=== PATIENT | male | born 1940 | race Caucasian/White ===

== ENCOUNTER 2020-07-30 17:49 | Observation (INO) | payer MEDICARE, OTHER, SELFPAY ==
[2020-07-30] VITALS (7 sets, daily range): BP systolic 98–140; BP diastolic 71–115; PULSE 70–71; RESP 13–20; TEMP 36–36.9; O2SAT 95–99; BMI 30.9
--- NOTE | ~2020-07-30 | XR_ITS ---
XR chest 1V portable 07/31/2020 05:36 Indication: Dyspnea. Procedure: AP portable chest Comparison: Comparison to multiple prior studies sequentially, with oldest reviewed study dated 09/14. Findings: Cardiomegaly. Shallow inspiration. No focal air space disease, pulmonary edema, pleural eff usion or suspected pneumothorax. There is atherosclerosis. Pacemaker leads are stable. No pneumothora x. No acute osseous abnormality. Impression: 1: No acute cardiopulmonary disease. Reviewed, dictated and finalized at location A. Impression: 1: No acute cardiopulmonary disease.
--- NOTE | ~2020-07-30 | CT_ITS ---
EXAMINATION: CT brain wo con DATE: 07/30/2020 17:55 INDICATION: Left facial droop. TECHNIQUE: Computed tomography (CT) of the head was performed without intravenous contrast. The mA wa s adjusted according to patient size. Iterative reconstruction technique was employed. Exam dose: 60 5.33 mGy-cm total exam DLP. COMPARISON: 09/2018 CT brain FINDINGS: Again noted is extensive encephalomalacia of the right cerebral hemisphere in the distribut ion of the middle cerebral artery consistent with old infarct. No intracranial mass lesion or hemorrhage or recent cerebrovascular accident is evident. Bilateral carotid siphon internal carotid artery and vertebral artery and basilar artery calcificatio ns are noted. No midline shift or mass effect. No subdural or epidural hematoma. No skull fracture or bone destruction is detected. Included paranasal sinuses and mastoid air cells a re unremarkable. IMPRESSION: Large right middle cerebral artery distribution chronic infarct No recent cerebrovascular accident is evident No intracranial mass lesion or hemorrhage is detected. Dr. Cortez telephoned the report on 07/30/2020 1803 hours to emergency room physician Dr. Cabello Reviewed, dictated and finalized at [facility]. Reviewed, dictated and finalized at location A. IMPRESSION: Large right middle cerebral artery distribution chronic infarct No recent cerebrovascular accident is evident No intracranial mass lesion or hemorrhage is detected. Dr. Cortez telephoned the report on 07/30/2020 1803 hours to emergency room physic melba Cabello
--- NOTE | ~2020-07-30 | US_ITS ---
EXAMINATION: US carotid duplex BI DATE: 07/31/2020 13:22 INDICATION: Left facial droop TECHNIQUE: Grayscale, color Doppler, and pulsed Doppler images of the cervical carotid arteries were obtained. The degree of vessel stenosis is placed in one of the following categories: normal, <50%, 5 0-69%, >=70% but less than near-occlusion, near-occlusion, or total occlusion. Note that percent sten osis relative to normal distal artery lumen diameter is indirectly measured from velocity measurement s as described by Chuckie, et al. Radiology 2003; 229:340-346. Notes: Normal: Peak systolic velocity <125 centimeters/sec and no plaque <50%. Peak systolic velocity <125 ( EDV <40; ICA/CCA PSV ratio <2.0; used these factors only a tandem lesions or low cardiac output or co ntralateral disease) 50-69 %: PSV 125-230 (EDV 40-100; ratio 2-4) >= 70% but less than near occlusion: PSV greater than 230 (EDV > 100; ratio> 4.0) Near Occlusion: PSV that is variable; markedly narrowed lumen Occlusion: Absent flow on color/spectral Doppler and no lumen on shafer scale. COMPARISON: None. FINDINGS: RIGHT: The right common carotid artery (CCA) peak systolic velocity (PSV) is 63 cm/s. The right internal car otid artery (ICA) PSV is 75 cm/s. The right ICA end-diastolic velocity (EDV) is 21 cm/s. The right IC A/CCA PSV ratio is 1.2. The external carotid artery (ECA) PSV is 149 cm/s. There is antegrade flow in the right vertebral artery. LEFT: The left CCA PSV is 111 cm/s. The left ICA PSV is 93 cm/s. The left ICA EDV is 36 cm/s. The left ICA/ CCA PSV ratio is 0.83. The ECA PSV is 81 cm/s. There is antegrade flow in the left vertebral artery. IMPRESSION: 1. Less than 50% stenosis in the right internal carotid artery by sonographic criteria. 2. Less than 50% stenosis in the left internal carotid artery by sonographic criteria. Reviewed, dictated and finalized at location A. IMPRESSION: 1. Less than 50% stenosis in the right internal carotid artery by sonographic kirby kamara. 2. Less than 50% stenosis in the left internal carotid artery by sonographic melba ambrose.
--- NOTE | 2020-07-30 18:18 | ECG_ITS ---
Measurements Intervals [place] Rate: 70 P: 192 [place]: 162 QRS: -11 QRSD: 92 T: 20 QT: 407 QTc: 439 Interpretive Statements ELECTRONIC ATRIAL PACEMAKER EARLY PRECORDIAL R/S TRANSITION BASELINE WANDER- V6 ATYPICAL ECG Electronically Signed On 07-30-2020 21:49:05 CDT by Alok Mackey D.O.
--- NOTE | 2020-07-30 18:47 | ED.GENADULT ---
HPI - General Adult General Chief complaint: Suspected CVA Stated complaint: CODE CVA Time Seen by Provider: 07/30/20 18:06 Source: patient and family History of Present Illness HPI narrative: Patient is a 80 y/o male brought in by EMS for possible stroke. Daughter states that he was eating at restaurant and he suddenly had trouble keeping food in his mouth. He was drooling and food seems to be falling out on left side of his mouth. He also had more trouble with weight bearing. This started at about 4:30 PM. Daughter states that patient had previous stroke about 10 years ago and has residual left sided weakness. Of note, patient is on Eliquis for Atrial fibrillation. Related Data Home Medications Medication Instructions Recorded Confirmed apixaban [Eliquis] 5 mg PO BID 07/30/20 07/30/20 atorvastatin 40 mg tablet 40 mg PO DAILY 07/30/20 07/30/20 buspirone 10 mg tablet 10 mg PO BID 07/30/20 07/30/20 carvedilol 3.125 mg tablet 3.125 mg PO BID tablet 07/30/20 07/30/20 cyanocobalamin (vitamin B-12) 1,000 mcg PO DAILY 07/30/20 07/30/20 docusate sodium 100 mg capsule 100 mg PO DAILY PRN 07/30/20 07/30/20 donepezil 10 mg tablet 10 mg PO QHS 07/30/20 07/30/20 furosemide 20 mg tablet 20 mg PO Q8H tablet 07/30/20 07/30/20 furosemide 20 mg tablet 20 mg PO QAM 07/30/20 07/30/20 levetiracetam 500 mg tablet 500 mg PO Q12H 07/30/20 07/30/20 magnesium oxide 400 mg (241.3 mg 400 mg PO DAILY 07/30/20 07/30/20 magnesium) tablet pantoprazole 40 mg tablet,delayed 40 mg PO QAM 07/30/20 07/30/20 release quetiapine 25 mg tablet 25 mg PO QHS 07/30/20 07/30/20 sertraline 100 mg tablet 200 mg PO DAILY 07/30/20 07/30/20 sotalol 80 mg PO HS 07/30/20 07/30/20 tamsulosin 0.4 mg capsule 0.4 mg PO DAILY 07/30/20 07/30/20 Allergies Allergy/AdvReac Type Severity Reaction Status Date / Time No Known Allergies Allergy Verified 07/30/20 22:43 Review of Systems Constitutional: Constitutional: Denies chills, Denies fever(s), Denies headache(s) and Denies weakness Eyes: Eyes: Denies blurry vision ENT: Denies headache(s) and Denies neck pain Cardiovascular: Cardiovascular: Denies chest pain and Denies dyspnea Respiratory: Respiratory: Denies cough and Denies dyspnea Gastrointestinal: Gastrointestinal: Denies abdominal pain, Denies diarrhea, Denies nausea and Denies vomiting Genitourinary: Genitourinary: Denies hematuria and Denies dysuria Musculoskeletal: Musculoskeletal: Denies back pain and Denies neck pain Neurologic: Denies headache(s), Reports focal weakness (chronic left sided weakness due to previous stroke) and Reports weakness PMFSH Family History Family History Father Mother Other No significant family history Social History Social History Smoking status: Never smoker Alcohol intake: never Substance use: never Living arrangements: with family Gender identity (if verbalized by the patient): Male Spiritual care concerns: No Exam Const: General: no acute distress and well developed Orientation/consciousness: oriented to person, oriented to place, oriented to time and patient oriented x3 HENMT: Head: normocephalic Ears: external ears normal General nose exam: Normal external nose present Eyes: General: appearance normal, both eyes and all related structures Conjunctivae: conjunctivae normal Neck: Neck: normal visual inspection and full ROM Chest: Chest palpation & inspection: normal inspection of the chest and no tenderness Resp: Effort & Inspection: normal respiratory effort Auscultation: clear to auscultation bilaterally Cardio: Rate: regular rate Rhythm: regular rhythm GI: GI Palp: No abdominal tenderness and Yes Soft to palpation Skin: General skin exam: normal color and turgor normal Neuro: General: oriented to person, oriented to place, oriented to time and patient oriented x3
[2020-07-30 18:57] LABS: Basophils Percent Auto 0.7 % (0.2-1.2); Eosinophils Percent Auto 0.7 % (0-4.4); Hematocrit 38.1 % (42.0-52.0); Hemoglobin 12.4 g/dL (14.0-18.0); Immature Granulocyte Absolute 0.02 K/mm3 (0.00-0.031); Immature Granulocyte Percent A 0.4 % (0-0.5); Lymphocytes Percent Auto 24.2 % (18.3-44.2); Mean Corpuscular HGB Conc 32.5 g/dl (32-36); Mean Corpuscular Hemoglobin 32.3 pg (26-34); Mean Corpuscular Volume 99.2 fl (80-100); Mean Platelet Volume 10.1 fl (7.4-10.4); Monocytes Absolute Auto 0.5 K/mm3 (0.1-0.6); Monocytes Percent Auto 8.8 % (2.6-8.5); Neutrophils Absolute Auto 3.5 K/mm3 (1.3-6.7); Neutrophils Percent Auto 65.2 % (45.5-73.1); Platelet Count Result 150 k/mm3 (150-375); Red Blood Count 3.84 M/mm3 (4.6-6.20); Red Cell Distribution Width 12.5 % (11.5-14.5); White Blood Count 5.4 K/mm3 (4.5-10.0)
[2020-07-30 19:07] LABS: Alanine Aminotransferase 23 U/L (4-50); Albumin Level 4.1 g/dL (3.5-5.1); Alkaline Phosphatase 64 U/L (38-126); Anion Gap 9 mmol/L (8-16); Aspartate Amino Transferase 33 U/L (17-59); Bilirubin,Total 0.4 mg/dL (0.2-1.3); Blood Urea Nitrogen 26 mg/dL (9-20); Calcium 9.3 mg/dL (8.4-10.2); Carbon Dioxide 29 mmol/L (22-30); Chloride 106 mmol/L (98-107); Estimated CRCL calculation 42 ml/min; Estimated Glomerular Filt Rate 45; Glucose 97 mg/dL (75-110); Potassium 4.3 mmol/L (3.4-5.0); Sodium 144 mmol/L (137-145)
[2020-07-30 19:12] LABS: INR 1.1; Prothrombin Time 14.5 Seconds (11.1-14.7)
[2020-07-30 19:26] LABS: Add Urine Microscopic? YES; Appearance Urine Clear (Clear); Bilirubin Urine Negative (Negative); Blood Urine Negative (Negative); Color Urine Yellow (Yellow); Glucose Urine UA Negative (Negative); Ketones Urine Negative (Negative); Leukocyte Esterase Ur Negative LEU/UL (Negative); Mucus Urine Few /lpf; Nitrate Urine Negative (Negative); Protein Urine 1+ mg/dL (Negative); RBC Urine 0-2 /hpf (0-2); Specific Grav Ur 1.027 (1.001-1.035); Squamous Epithelial Cell Urine Rare /hpf (Few); Urobilinogen Urine Negative mg/dL (<2.0); WBC Urine 0-3 /hpf
--- NOTE | 2020-07-30 19:27 | PC.NURSE ---
Pt resting on stretcher c at bedside. per family, pt had cva 10 years ago. PMH updated with info provided. from family. pt able to answer simple yes/no questions. pt denies pain. all needs addressed. call light in reach. will continue to monitor.
--- NOTE | 2020-07-30 20:58 | PM.IMHP ---
H&P: HPI History of Present Illness Date/Time: 07/30/20 20:58 Chief Complaint: Drooling Narrative: This is an 80-year-old male with past medical history significant for stroke a few years ago patient with resultant left-sided hemiparesis, dementia, seizure disorder, atrial fibrillation, anticoagulated and rate controlled, depression. Patient has been in his usual state of health he uses a cane to aid with his ambulation he was at a restaurant eating lunch with his daughter when daughter noticed that he had a blank stare foot was coming out of his mouth and he was not able to get up from the chair on his when she prompted him to do so. Patient was brought to the emergency room preliminary workup was essentially nonrevealing a CT of the head showed large chronic infarct in the right MCA territory. BMP was significant for only slight elevation of creatinine compared to patient's usual. A UA showed no wbc's in the urine. Daughter who in the states that he has been in his usual state of he lives in his own home and has a caregiver and his children take turns in visiting him. Patient states that he had had some broken thoughts. Patient denies any pain at at the time of my visit he denies any visual field deficit, no new weakness or sensory motor deficit denies any shortness of breath chills fever nausea or vomiting patient states that he takes his tablets with applesauce but has no difficulty swallowing. Review of Systems Review of Systems: Narrative: Drooling altered mental status gait disturbance Constitutional: Constitutional: Denies chills, Denies fatigue, Denies fever(s), Denies frequent falls, Denies headache(s) and Denies lethargy Eyes: Eyes: Denies other visual disturbances ENT: Denies dysphagia, Denies nasal congestion, Denies nasal discharge and Denies nasal obstruction Cardiovascular: Cardiovascular: Denies chest pain at rest, Denies pedal edema, Denies irregular heart rhythm, Denies radiating jaw, neck or arm pain, Denies palpitations, Denies dyspnea and Denies dyspnea on exertion Respiratory: Respiratory: Denies cough, Denies dyspnea and Denies wheezing Gastrointestinal: Gastrointestinal: Denies nausea and Denies vomiting Genitourinary: Genitourinary: Denies dysuria Musculoskeletal: Musculoskeletal: Denies arthralgias and Denies muscle weakness Integumentary/Breasts: Skin/Breast: Denies rash Neurologic: Denies syncope, Denies headache(s), Denies focal weakness, Denies loss of vision and Denies Sensory deficit (Neuro) Comments: Left-sided chronic hemiparesis Psychiatric: Psychiatric: Reports no additional psychiatric complaints Endocrine: Endocrine: Reports no additional endocrine complaints Hematologic/Lymphatic: Hematologic/Lymphatic: Reports no additional hematologic/lymphatic complaints Allergic/Immunologic: Allergic/Immunologic: Reports no additional allergic/immunologic complaints PMFSH Social History Social History Smoking status: Never smoker Alcohol intake: never Substance use: never Gender identity (if verbalized by the patient): Male Spiritual care concerns: No Meds Home Medications and Allergies Home Medications Medication Instructions Recorded Confirmed Type apixaban [Eliquis] 5 mg PO BID 07/30/20 07/30/20 History atorvastatin 40 mg tablet 40 mg PO DAILY 07/30/20 07/30/20 History buspirone 10 mg tablet 10 mg PO BID 07/30/20 07/30/20 History carvedilol 3.125 mg tablet 3.125 mg PO BID tablet 07/30/20 07/30/20 History cyanocobalamin (vitamin B-12) 1,000 mcg PO DAILY 07/30/20 07/30/20 History docusate sodium 100 mg capsule 100 mg PO DAILY PRN 07/30/20 07/30/20 History donepezil 10 mg tablet 10 mg PO QHS 07/30/20 07/30/20 History furosemide 20 mg tablet 20 mg PO Q8H tablet 07/30/20 07/30/20 History furosemide 20 mg tablet 20 mg PO QAM 07/30/20 07/30/20 History levetiracetam 500 mg tablet 500 mg PO Q12H 07/30/20 07/30/20 History magnesium oxi
--- NOTE | 2020-07-30 22:20 | ADMGEN ---
This patient, Rony Rock, was admitted to Medical Room 340-01. Patient/family oriented to hospital policies and general routines including ID bracelet, bed and alarms, visiting hours, pain management, procedures, bathroom and other care routines, personal items, smoking policy, room service/diet, and visiting hours. Information on how to activate the Rapid Response Team has been discussed. Patient/Family are encouraged to report perceived risks to care and to ask questions if they do not understand what they are told or what they should do.
[2020-07-30] MEDS: SODIUM CHLORIDE 0.9% IV 1,000 ML 125 ML IV CONT (22:28)
[2020-07-31] VITALS (12 sets, daily range): BP systolic 113–142; BP diastolic 59–97; PULSE 64–73; RESP 16–18; TEMP 35.8–36.7; O2SAT 96–100
[2020-07-31] MEDS: levETIRAcetam 500 MG TABLET PO ×3 (00:27→21:03)
[2020-07-31] MEDS: DONEPEZIL HCL 10 MG TABLET PO ×2 (00:27→21:03)
[2020-07-31] MEDS: QUEtiapine FUMARATE 25 MG TABLET PO ×2 (00:27→21:03)
[2020-07-31] MEDS: APIXABAN 5 MG TABLET PO ×3 (00:27→21:03)
[2020-07-31] MEDS: FUROSEMIDE 20 MG TABLET PO ×4 (05:14→21:03)
--- NOTE | 2020-07-31 06:00 | ECHO_ITS ---
Patient Info Name: Rony Rock Age: 80 years : 1940 Gender: Male Ht: 70 in Wt: 216 lbs BSA: 2.23 m2 HR: 70 bpm BP: 142 / 89 mmHg Technical Quality: Poor Exam Date: 07/31/2020 11:12 AM Exam Location: [facility] Patient Status: Outpatient Admit Date: 07/30/2020 Staff Ordering Physician: Ewa Ramos MD Whitesmith: Libby Mckay RDCS Attending Provider: Juan Jose Temple MD Referring Physician: Richard FINNEGAN; Exam Type: CA echo dop color flow w con Study Info Indications - LEFT FACIAL DROOP Complete two-dimensional, color flow and Doppler transthoracic echocardiogram is performed with contrast to opacify the left ventricle and to improve the deliniation of the left ventricle endocardial borders. Contrast/Agitated Saline Contrast/Ag. Saline: Definity Amount: 3.00 ml Administered By: Kavitha Anderson RN Existing IV Access: Yes IV Access Condition: patent with no signs of infiltration Reason for Poor Study: poor echocardiographic windows Summary 1. Technically suboptimal study due to poor sonographic images. 2. Left ventricular systolic function is preserved, estimated at 50-55%. 3. Definity contrast administered improved wall motion interpretation. 4. Left ventricular chamber dimension is normal. 5. There is mildly increased left ventricular wall thickness. 6. The left ventricular diastolic function is grade I diastolic dysfunction. 7. E/e' 9 is minimally elevated. 8. There is mild tricuspid valve regurgitation. 9. No pulmonary hypertension, estimated pulmonary arterial systolic pressure is 21 mmHg. 10. There is mild pulmonic regurgitation. 11. There is small circumferential pericardial effusion. Left Ventricle Technically suboptimal study due to poor sonographic images. E/e' 9 is minimally elevated. Left ventricular systolic function is preserved, estimated at 50-55%. Definity contrast administered improved wall motion interpretation. Left ventricular chamber dimension is normal. There is mildly increased left ventricular wall thickness. The left ventricular diastolic function is grade I diastolic dysfunction. Right Ventricle Right ventricular chamber dimension is not well visualized. Right ventricular systolic function is normal. Left Atria Left atrial chamber dimension is normal. Right Atria Right atrial chamber dimension is not well visualized. Aortic Valve The aortic valve is trileaflet. There is no aortic valve stenosis. There is no aortic valve regurgitation. Pulmonic Valve There is mild pulmonic regurgitation. Mitral Valve There is no mitral valve stenosis. There is no mitral valve regurgitation. Tricuspid Valve There is mild tricuspid valve regurgitation. No pulmonary hypertension, estimated pulmonary arterial systolic pressure is 21 mmHg. Pericardium/Pleural There is small circumferential pericardial effusion. Inferior Vena Cava Normal inferior vena cava with >50% collapse upon inspiration consistent with normal right atrial pressure, 5 mmHg. Aorta The aortic root size at the sinus of Valsalva is normal. Left Ventricular Outflow Tract Name Value Normal LVOT 2D LVOT Diameter
[2020-07-31] MEDS: SODIUM CHLORIDE 0.9% IV 1,000 ML 125 ML IV CONT (06:23)
[2020-07-31 07:27] LABS: Glucose Point of Care 115 mg/dl (65-105)
--- NOTE | 2020-07-31 07:40 | PM.IMPN ---
Progress Note: A&P Assessment and Plan (1) TIA (transient ischemic attack): Code(s): G45.9 - Transient cerebral ischemic attack, unspecified Status: Acute Assessment and Plan: Preliminary workup CT with no acute abnormality chronic right MCA stroke Will place in observation MRI MRA echocardiogram in a.m. Continue to monitor neurology consultation. saw him yserday. seizure : will get EEG (2) Chronic ischemic right MCA stroke: Code(s): I69.30 - Unspecified sequelae of cerebral infarction Status: Acute Assessment and Plan: Patient is anticoagulated and on statin (3) Paralysis of left upper extremity: Code(s): G83.24 - Monoplegia of upper limb affecting left nondominant side Status: Acute Assessment and Plan: Sequela of right MCA chronic stroke (4) Dysphagia as late effect of cerebrovascular accident (CVA): Code(s): I69.391 - Dysphagia following cerebral infarction Status: Acute Assessment and Plan: Patient denies any issues swallowing however due to episode at unknown age will keep NPO and have a speech therapy consult for swallow eval (5) Dementia: Code(s): F03.90 - Unspecified dementia without behavioral disturbance Status: Acute Assessment and Plan: Resume meds (6) Atrial fibrillation: Code(s): I48.91 - Unspecified atrial fibrillation Status: Acute Assessment and Plan: Rate controlled and anticoagulated Continue apixaban and sotalol Continue to monitor Additional Plan This is an 80-year-old male with past medical history significant for stroke a few years ago patient with resultant left-sided hemiparesis, dementia, seizure disorder, atrial fibrillation, anticoagulated and rate controlled, depression. Patient has been in his usual state of health he uses a cane to aid with his ambulation he was at a restaurant eating lunch with his daughter when daughter noticed that he had a blank stare foot was coming out of his mouth and he was not able to get up from the chair on his when she prompted him to do so. Patient was brought to the emergency room preliminary workup was essentially nonrevealing a CT of the head showed large chronic infarct in the right MCA territory. BMP was significant for only slight elevation of creatinine compared to patient's usual. A UA showed no wbc's in the urine. Daughter who in the states that he has been in his usual state of he lives in his own home and has a caregiver and his children take turns in visiting him. Patient states that he had had some broken thoughts. Patient denies any pain at at the time of my visit he denies any visual field deficit, no new weakness or sensory motor deficit denies any shortness of breath chills fever nausea or vomiting patient states that he takes his tablets with applesauce but has no difficulty swallowing. Time Spent With Patient Time: # blank stare with weakness: possilbe TIA. rule out seizure. Initial CT head negative for any acute abnormality. chroni cright MCA stroke. MRI MRA , echo , doppler ordered. neurology conusultation. get EEG. mri could not be done due to his pacemaker status will consult neurology. PT/OT/ST To evalute and treat # Chronic ischemic right MCA stroke: on apixaban and statin # CHronic left upper extremity weakness sequelae of right MCA stroke. # Dysphagai: npo speech to see for swallow eval # dementia: home med # Atrial fibrilation: rate controlled. anticoagulated. sotalol # DVT proph: on apixaban # Full code Subjective Date/time seen: 07/31/20 07:40 Interval history: history reviewed. has pacemaker, so won't be able to get mri and mra. he reports his left side is weaker. no seizure like activity. worsening left sided weakness with drooling of food out of his mouth yesteday. swallow eval has not been tried yet today. Review of Systems Constitutional: Constitutional: Denies chills, Denies fatigue, Denies fever(s)
[2020-07-31] MEDS: carvediloL 3.125 MG TABLET PO ×2 (08:21→17:26)
[2020-07-31] MEDS: TAMSULOSIN HCL 0.4 MG CAPSULE PO (08:22)
[2020-07-31] MEDS: ATORVASTATIN 40 MG TABLET PO (08:22)
[2020-07-31] MEDS: busPIRone HCL 10 MG TABLET PO ×2 (08:22→17:26)
[2020-07-31] MEDS: MAGNESIUM OXIDE 400 MG TABLET PO (08:22)
[2020-07-31] MEDS: PANTOPRAZOLE 40 MG TABLET PO (08:22)
[2020-07-31] MEDS: CYANOCOBALAMIN 1,000 MCG TABLET 1000 MCG PO (08:22)
[2020-07-31] MEDS: SOTALOL HCL 80 MG TABLET PO (08:23)
[2020-07-31] MEDS: SERTRALINE HCL 50 MG TABLET 200 MG PO (08:23)
--- NOTE | 2020-07-31 12:06 | WPDNEURCNPN ---
Assessment and Plan Additional Plan history of stroke in the past in addition to underlying atrial fibrillation and documented abnormal CT scan of the head without any bleed but right hemispheric large stroke area could very well be possible to have a focal seizure at times patient is already receiving the Keppra 500 mg q.12 hours along with the anticoagulation therapy no further intervention is necessary Consult date: 07/31/20 Time Seen: 11:30 HPI: Rony Rock is a 80 year old male has been admitted to the hospital for the complaints of drooling in addition to the history of stroke in the past with resultant left hemiparesis and complicated by this seizure disorder and dementia. Patient does have atrial fibrillation is anticoagulated the rate is controlled and the course is stable though clinically he has high having episodes of depression reportedly he was at a restaurant eating lunch with his daughter when the daughter noted that he had a blank stare and the food was coming out of his mouth and he was unable to get up from the chair on his own he was brought to the emergency room where initial CT scan of the head was negative for the bleed but documented the large chronic infarct in the right middle cerebral artery distribution he lives by himself in his own home and complains of broken thoughts. As mentioned before the CT scan did not reveal any bleed or new stroke and routine lab is consistent with elevated BUN with creatinine of 1.5 GFR only 45 normal UA Review of Systems Review of Systems: All systems reviewed & are unremarkable except as noted in HPI and below PMFSH Family History Family History Father Mother Other No significant family history Social History Social History Smoking status: Never smoker Alcohol intake: never Substance use: never Living arrangements: with family Gender identity (if verbalized by the patient): Male Spiritual care concerns: No Meds Home Medications and Allergies Home Medications Medication Instructions Recorded Confirmed Type apixaban [Eliquis] 5 mg PO BID 07/30/20 07/30/20 History atorvastatin 40 mg tablet 40 mg PO DAILY 07/30/20 07/30/20 History buspirone 10 mg tablet 10 mg PO BID 07/30/20 07/30/20 History carvedilol 3.125 mg tablet 3.125 mg PO BID tablet 07/30/20 07/30/20 History cyanocobalamin (vitamin B-12) 1,000 mcg PO DAILY 07/30/20 07/30/20 History docusate sodium 100 mg capsule 100 mg PO DAILY PRN 07/30/20 07/30/20 History donepezil 10 mg tablet 10 mg PO QHS 07/30/20 07/30/20 History furosemide 20 mg tablet 20 mg PO Q8H tablet 07/30/20 07/30/20 History furosemide 20 mg tablet 20 mg PO QAM 07/30/20 07/30/20 History levetiracetam 500 mg tablet 500 mg PO Q12H 07/30/20 07/30/20 History magnesium oxide 400 mg (241.3 mg 400 mg PO DAILY 07/30/20 07/30/20 History magnesium) tablet pantoprazole 40 mg tablet,delayed 40 mg PO QAM 07/30/20 07/30/20 History release quetiapine 25 mg tablet 25 mg PO QHS 07/30/20 07/30/20 History sertraline 100 mg tablet 200 mg PO DAILY 07/30/20 07/30/20 History sotalol 80 mg PO HS 07/30/20 07/30/20 History tamsulosin 0.4 mg capsule 0.4 mg PO DAILY 07/30/20 07/30/20 History Allergies Allergy/AdvReac Type Severity Reaction Status Date / Time No Known Allergies Allergy Verified 07/30/20 22:43 Vital Signs Vital Signs - 24 hr 07/30/20 18:00 07/30/20 18:13 07/30/20 19:11 Temperature 36.9 C Pulse Rate 70 71 Respiratory Rate 14 20 Blood Pressure 140/115 H Pulse Oximetry 99 98 99 07/30/20 19:14 07/30/20 20:01 07/30/20 21:03 Temperature 36.7 C 36.6 C Pulse Rate 70 70 Respiratory Rate 13 16 Blood Pressure 117/71 124/75 98/77 L Pulse Oximetry 95 98 07/30/20 22:29 07/31/20 00:00 07/31/20 04:00 Temperature 36.0 C L 36.3 C L 36.5 C Pulse Rate 71 70 69 Respiratory Rate 18 18 18 Blood Pressure 1
--- NOTE | 2020-07-31 13:10 | PCSTNOTE ---
Please refer to the Bedside Swallow Evaluation in the EMR. Please note, silent aspiration cannot be ruled out at bedside.
--- NOTE | 2020-07-31 13:11 | PCOTNOTE ---
07/31 13:11 - OT attempted to see pt. for evaluation. Pt. unavailable due to CT and EEG. Will follow and try again later.
--- NOTE | 2020-07-31 14:20 | PCPTNOTE ---
Attempted PT eval. Pt having EEG done. Will try again tomorrow.
[2020-08-01] VITALS (11 sets, daily range): BP systolic 104–145; BP diastolic 55–87; PULSE 70; RESP 16–18; TEMP 35.8–36.9; O2SAT 96–100
[2020-08-01] MEDS: SODIUM CHLORIDE 0.9% IV 1,000 ML 60 ML IV CONT (01:29)
[2020-08-01] MEDS: FUROSEMIDE 20 MG TABLET PO ×2 (06:06→08:10)
[2020-08-01] MEDS: CYANOCOBALAMIN 1,000 MCG TABLET 1000 MCG PO (08:08)
[2020-08-01] MEDS: ATORVASTATIN 40 MG TABLET PO (08:08)
[2020-08-01] MEDS: SERTRALINE HCL 50 MG TABLET 200 MG PO (08:08)
[2020-08-01] MEDS: busPIRone HCL 10 MG TABLET PO ×2 (08:08→17:11)
[2020-08-01] MEDS: PANTOPRAZOLE 40 MG TABLET PO (08:09)
[2020-08-01] MEDS: MAGNESIUM OXIDE 400 MG TABLET PO (08:09)
[2020-08-01] MEDS: carvediloL 3.125 MG TABLET PO ×2 (08:09→17:10)
[2020-08-01] MEDS: TAMSULOSIN HCL 0.4 MG CAPSULE PO (08:09)
[2020-08-01] MEDS: APIXABAN 5 MG TABLET PO ×2 (08:09→20:00)
[2020-08-01] MEDS: SOTALOL HCL 80 MG TABLET PO (08:11)
[2020-08-01] MEDS: levETIRAcetam 500 MG TABLET PO ×2 (08:11→20:00)
--- NOTE | 2020-08-01 10:47 | PC.NURSE ---
Verified with [facility] that patient takes furosemide 20mg po daily.
--- NOTE | 2020-08-01 11:48 | WPDNEUROLOGY ---
Neurology EEG Report General Information Date of Study: 07/31/20 TEST eeg DIAGNOSIS Seizures CONDITION OF RECORDING awake drowsy and sleep EEG NUMBER [id number] CLINICAL HISTORY patient has history of stroke that left him weaker on the left side. Yesterday had an episode of blank stare and not being able to talk or get up. EEG DESCRIPTION Basic resting occipital frequency consists of small amount of poorly organized low voltage 9 to 11 hertz per 2nd alpha admixed with low-voltage 15 to 18 hertz per 2nd beta. During drowsiness low-voltage beta activity seen diffusely. Throughout the tracing during wakefulness and drowsiness and also during sleep right hemispheric medium voltage 4 to 6 hertz per 2nd theta activity seen admixed with beta activity. No evidence of any paroxysmal activity throughout the tracing. Hyperventilation not done. Photic stimulation not done. Non paroxysmal. Focal. Lateralizing. IMPRESSION Abnormal record due to the presence of rice hemispheric theta activity throughout the tracing during wakefulness and drowsiness though there is no evidence of any paroxysmal discharge throughout the tracing but these abnormalities are suggestive of underlying focal structural lesion clinical correlate admitted
[2020-08-01] MEDS: QUEtiapine FUMARATE 25 MG TABLET PO (20:00)
[2020-08-01] MEDS: DONEPEZIL HCL 10 MG TABLET PO (20:00)
[2020-08-02 05:38] VITALS: BP 135/77; PULSE 82; RESP 18; TEMP 36.2; O2SAT 100
[2020-08-02 07:45] VITALS: BP 133/67; PULSE 70; RESP 18; TEMP 36.6; O2SAT 98
[2020-08-02] MEDS: SERTRALINE HCL 50 MG TABLET 200 MG PO (08:04)
[2020-08-02 08:05] VITALS: PULSE 70
[2020-08-02] MEDS: busPIRone HCL 10 MG TABLET PO ×2 (08:05→17:49)
[2020-08-02] MEDS: FUROSEMIDE 20 MG TABLET PO (08:05)
[2020-08-02] MEDS: ATORVASTATIN 40 MG TABLET PO (08:05)
[2020-08-02] MEDS: SOTALOL HCL 80 MG TABLET PO (08:05)
[2020-08-02] MEDS: carvediloL 3.125 MG TABLET PO ×2 (08:05→17:49)
[2020-08-02] MEDS: MAGNESIUM OXIDE 400 MG TABLET PO (08:05)
[2020-08-02] MEDS: PANTOPRAZOLE 40 MG TABLET PO (08:05)
[2020-08-02] MEDS: APIXABAN 5 MG TABLET PO ×2 (08:06→20:16)
[2020-08-02] MEDS: levETIRAcetam 500 MG TABLET PO (08:07)
[2020-08-02] MEDS: CYANOCOBALAMIN 1,000 MCG TABLET 1000 MCG PO (08:07)
[2020-08-02] MEDS: TAMSULOSIN HCL 0.4 MG CAPSULE PO (08:07)
[2020-08-02 14:00] VITALS: BP 110/68; PULSE 70; RESP 18; TEMP 36.6; O2SAT 99
--- NOTE | 2020-08-02 14:17 | PC.NURSE ---
On 08/02/20, the student, [ Chaitanya Taylor], provided care and completed [facility] documentation on this patient. I have reviewed the student's documentation and agree with the findings.
--- NOTE | 2020-08-02 16:15 | PM.IMPN ---
Progress Note: A&P Assessment and Plan (1) TIA (transient ischemic attack): Code(s): G45.9 - Transient cerebral ischemic attack, unspecified Status: Acute Assessment and Plan: Preliminary workup CT with no acute abnormality chronic right MCA stroke Will place in observation MRI could not be done as he has pacemaker in place. Continue to monitor neurology consultation. appreciate his recommendations. seizure :EEG being done today. (2) Chronic ischemic right MCA stroke: Code(s): I69.30 - Unspecified sequelae of cerebral infarction Status: Acute Assessment and Plan: Patient is anticoagulated and on statin, add aspirin 81 mg po daily. (3) Paralysis of left upper extremity: Code(s): G83.24 - Monoplegia of upper limb affecting left nondominant side Status: Acute Assessment and Plan: Sequela of right MCA chronic stroke (4) Dysphagia as late effect of cerebrovascular accident (CVA): Code(s): I69.391 - Dysphagia following cerebral infarction Status: Acute Assessment and Plan: Patient denies any issues swallowing however due to episode at unknown age will keep NPO and have a speech therapy consult for swallow eval. he is on dysphagia diet. (5) Dementia: Code(s): F03.90 - Unspecified dementia without behavioral disturbance Status: Acute Assessment and Plan: Resume meds (6) Atrial fibrillation: Code(s): I48.91 - Unspecified atrial fibrillation Status: Acute Assessment and Plan: Rate controlled and anticoagulated Continue apixaban and sotalol Continue to monitor Additional Plan needs rehabilaition Subjective Date/time seen: 08/01/20 09:15 Interval history: BACK DATE NOTE FOR 08/01/2020 DOS no overngiht events, going to work with the therapy today. no fever, chills. left side weakness persists. no nausea, vomiting. Review of Systems Constitutional: Constitutional: Denies chills, Denies fatigue, Denies fever(s), Denies frequent falls, Denies headache(s) and Denies lethargy Eyes: Eyes: Denies other visual disturbances ENT: Denies dysphagia, Denies headache(s), Denies nasal congestion, Denies nasal discharge and Denies nasal obstruction Cardiovascular: Cardiovascular: Denies chest pain at rest, Denies syncope, Denies pedal edema, Denies irregular heart rhythm, Denies radiating jaw, neck or arm pain, Denies palpitations, Denies dyspnea and Denies dyspnea on exertion Respiratory: Respiratory: Denies cough, Denies dyspnea, Denies dyspnea on exertion and Denies wheezing Gastrointestinal: Gastrointestinal: Denies dysphagia, Denies nausea and Denies vomiting Genitourinary: Genitourinary: Denies dysuria Musculoskeletal: Musculoskeletal: Denies arthralgias and Denies muscle weakness Integumentary/Breasts: Skin/Breast: Denies rash Neurologic: Denies syncope, Denies frequent falls, Denies headache(s), Denies focal weakness and Denies Sensory deficit (Neuro) Psychiatric: Psychiatric: Reports no additional psychiatric complaints Endocrine: Endocrine: Reports no additional endocrine complaints, Denies fatigue and Denies palpitations Hematologic/Lymphatic: Hematologic/Lymphatic: Reports no additional hematologic/lymphatic complaints Allergic/Immunologic: Allergic/Immunologic: Reports no additional allergic/immunologic complaints and Denies wheezing Exam Narrative: Exam Narrative: Const: General: comfortable, no acute distress, well developed, alert, awake oriented x3 HENMT: Head: normal to inspection, normocephalic and atraumatic Ears: hearing grossly normal bilaterally General nose exam: Normal external nose present Face and sinus: left facial droop noted Eyes: General: appearance normal, both eyes and all related structures Alignment and Position: alignment normal Sclera: sclerae normal Pupils: Equal, round and reactive pupils present EOM: EOMs intact bilaterally Neck: Neck: full ROM, no lymphadenopathy and
--- NOTE | 2020-08-02 16:19 | PM.IMPN ---
Progress Note: A&P Assessment and Plan (1) TIA (transient ischemic attack): Code(s): G45.9 - Transient cerebral ischemic attack, unspecified Status: Acute Assessment and Plan: Preliminary workup CT with no acute abnormality chronic right MCA stroke Will place in observation MRI could not be done as he has pacemaker in place. Continue to monitor neurology consultation. appreciate his recommendations. seizure :EEG being with abnormlaity noted, no siezure. disused with dr. Elizondo. (2) Chronic ischemic right MCA stroke: Code(s): I69.30 - Unspecified sequelae of cerebral infarction Status: Acute Assessment and Plan: Patient is anticoagulated and on statin, add aspirin 81 mg po daily. (3) Paralysis of left upper extremity: Code(s): G83.24 - Monoplegia of upper limb affecting left nondominant side Status: Acute Assessment and Plan: Sequela of right MCA chronic stroke (4) Dysphagia as late effect of cerebrovascular accident (CVA): Code(s): I69.391 - Dysphagia following cerebral infarction Status: Acute Assessment and Plan: Patient denies any issues swallowing however due to episode at unknown age will keep NPO and have a speech therapy consult for swallow eval. he is on dysphagia diet. (5) Dementia: Code(s): F03.90 - Unspecified dementia without behavioral disturbance Status: Acute Assessment and Plan: Resume meds (6) Atrial fibrillation: Code(s): I48.91 - Unspecified atrial fibrillation Status: Acute Assessment and Plan: Rate controlled and anticoagulated Continue apixaban and sotalol Continue to monitor Additional Plan needs rehabilaition. daughter agreeable Subjective Date/time seen: 08/02/20 16:19 Interval history: No overngiht events, going to work with the therapy today. no fever, chills. left side weakness persists. no nausea, vomiting. discussed with daugthter at bedside, agreeable for rehab placement Review of Systems Constitutional: Constitutional: Denies chills, Denies fatigue, Denies fever(s), Denies frequent falls, Denies headache(s) and Denies lethargy Eyes: Eyes: Denies other visual disturbances ENT: Denies dysphagia, Denies headache(s), Denies nasal congestion, Denies nasal discharge and Denies nasal obstruction Cardiovascular: Cardiovascular: Denies chest pain at rest, Denies syncope, Denies pedal edema, Denies irregular heart rhythm, Denies radiating jaw, neck or arm pain, Denies palpitations, Denies dyspnea and Denies dyspnea on exertion Respiratory: Respiratory: Denies cough, Denies dyspnea, Denies dyspnea on exertion and Denies wheezing Gastrointestinal: Gastrointestinal: Denies dysphagia, Denies nausea and Denies vomiting Genitourinary: Genitourinary: Denies dysuria Musculoskeletal: Musculoskeletal: Denies arthralgias and Denies muscle weakness Integumentary/Breasts: Skin/Breast: Denies rash Neurologic: Denies syncope, Denies frequent falls, Denies headache(s), Denies focal weakness and Denies Sensory deficit (Neuro) Psychiatric: Psychiatric: Reports no additional psychiatric complaints Endocrine: Endocrine: Reports no additional endocrine complaints, Denies fatigue and Denies palpitations Hematologic/Lymphatic: Hematologic/Lymphatic: Reports no additional hematologic/lymphatic complaints Allergic/Immunologic: Allergic/Immunologic: Reports no additional allergic/immunologic complaints and Denies wheezing Exam Narrative: Exam Narrative: Const: General: comfortable, no acute distress, well developed, alert, awake oriented x3 HENMT: Head: normal to inspection, normocephalic and atraumatic Ears: hearing grossly normal bilaterally General nose exam: Normal external nose present Face and sinus: left facial droop noted Eyes: General: appearance normal, both eyes and all related structures Alignment and Position: alignment normal Sclera: sclerae normal Pupils: Equal, round and r
[2020-08-02 17:49] VITALS: PULSE 70
[2020-08-02 18:00] VITALS: BP 100/64; PULSE 69; RESP 18; TEMP 36.3; O2SAT 97
[2020-08-02] MEDS: QUEtiapine FUMARATE 25 MG TABLET PO (20:16)
[2020-08-02] MEDS: DONEPEZIL HCL 10 MG TABLET PO (20:17)
[2020-08-02] MEDS: levETIRAcetam 250 MG TABLET 750 MG PO (20:17)
[2020-08-03 05:09] VITALS: BP 110/61; PULSE 71; RESP 16; TEMP 35.9; O2SAT 95
[2020-08-03 06:05] LABS: Basophils Percent Auto 0.4 % (0.2-1.2); Eosinophils Absolute Auto 0.1 K/mm3 (0-0.3); Eosinophils Percent Auto 1.5 % (0-4.4); Hematocrit 35.3 % (42.0-52.0); Hemoglobin 11.9 g/dL (14.0-18.0); Immature Granulocyte Absolute 0.02 K/mm3 (0.00-0.031); Immature Granulocyte Percent A 0.4 % (0-0.5); Lymphocytes Absolute Auto 1.86 K/mm3 (0.9-3.2); Lymphocytes Percent Auto 35.1 % (18.3-44.2); Mean Corpuscular HGB Conc 33.7 g/dl (32-36); Mean Corpuscular Hemoglobin 32.2 pg (26-34); Mean Corpuscular Volume 95.4 fl (80-100); Mean Platelet Volume 10.2 fl (7.4-10.4); Monocytes Absolute Auto 0.5 K/mm3 (0.1-0.6); Monocytes Percent Auto 9.6 % (2.6-8.5); Neutrophils Absolute Auto 2.8 K/mm3 (1.3-6.7); Platelet Count Result 139 k/mm3 (150-375); Red Cell Distribution Width 12.3 % (11.5-14.5); White Blood Count 5.3 K/mm3 (4.5-10.0)
[2020-08-03 06:25] LABS: Anion Gap 5 mmol/L (8-16); Blood Urea Nitrogen 26 mg/dL (9-20); Calcium 9.1 mg/dL (8.4-10.2); Carbon Dioxide 33 mmol/L (22-30); Chloride 101 mmol/L (98-107); Estimated CRCL calculation 40 ml/min; Estimated Glomerular Filt Rate 45; Glucose 89 mg/dL (75-110); Sodium 139 mmol/L (137-145)
[2020-08-03 07:20] VITALS: PULSE 69; RESP 18; TEMP 36; O2SAT 95
[2020-08-03] MEDS: APIXABAN 5 MG TABLET PO (08:02)
[2020-08-03] MEDS: SERTRALINE HCL 50 MG TABLET 200 MG PO (08:02)
[2020-08-03] MEDS: CYANOCOBALAMIN 1,000 MCG TABLET 1000 MCG PO (08:02)
[2020-08-03] MEDS: FUROSEMIDE 20 MG TABLET PO (08:03)
[2020-08-03] MEDS: levETIRAcetam 250 MG TABLET 750 MG PO (08:03)
[2020-08-03] MEDS: TAMSULOSIN HCL 0.4 MG CAPSULE PO (08:03)
[2020-08-03 08:04] VITALS: PULSE 69
[2020-08-03] MEDS: busPIRone HCL 10 MG TABLET PO ×2 (08:04→16:54)
[2020-08-03] MEDS: carvediloL 3.125 MG TABLET PO ×2 (08:04→16:54)
[2020-08-03] MEDS: SOTALOL HCL 80 MG TABLET PO (08:04)
[2020-08-03] MEDS: ASPIRIN 81 MG ENTERIC TABLET PO (08:05)
[2020-08-03] MEDS: ATORVASTATIN 40 MG TABLET PO (08:05)
[2020-08-03] MEDS: MAGNESIUM OXIDE 400 MG TABLET PO (08:05)
[2020-08-03] MEDS: PANTOPRAZOLE 40 MG TABLET PO (08:05)
--- NOTE | 2020-08-03 13:08 | PM.DS ---
DS: Admitting Diagnosis Admitting Diagnosis Admitting Diagnosis: left sided weakness worsening DS: Discharge Diagnosis Discharge Diagnosis (1) Facial droop: Code(s): R29.810 - Facial weakness Status: Acute (2) Drooling from left side of mouth: Code(s): K11.7 - Disturbances of salivary secretion Status: Acute (3) Dysphagia as late effect of cerebrovascular accident (CVA): Code(s): I69.391 - Dysphagia following cerebral infarction Status: Acute (4) Dementia: Code(s): F03.90 - Unspecified dementia without behavioral disturbance Status: Acute (5) Atrial fibrillation: Code(s): I48.91 - Unspecified atrial fibrillation Status: Acute (6) Paralysis of left upper extremity: Code(s): G83.24 - Monoplegia of upper limb affecting left nondominant side Status: Acute (7) Chronic ischemic right MCA stroke: Code(s): I69.30 - Unspecified sequelae of cerebral infarction Status: Acute (8) TIA (transient ischemic attack): Code(s): G45.9 - Transient cerebral ischemic attack, unspecified Status: Acute DS: Summary Hospital Course Hospital Course: This is an 80-year-old male with past medical history significant for stroke a few years ago patient with resultant left-sided hemiparesis, dementia, seizure disorder, atrial fibrillation, anticoagulated and rate controlled, depression. Patient has been in his usual state of health he uses a cane to aid with his ambulation he was at a restaurant eating lunch with his daughter when daughter noticed that he had a blank stare foot was coming out of his mouth and he was not able to get up from the chair on his when she prompted him to do so. Patient was brought to the emergency room preliminary workup was essentially nonrevealing a CT of the head showed large chronic infarct in the right MCA territory. BMP was significant for only slight elevation of creatinine compared to patient's usual. A UA showed no wbc's in the urine. Daughter who in the states that he has been in his usual state of he lives in his own home and has a caregiver and his children take turns in visiting him. Patient states that he had had some broken thoughts. Patient denies any pain at at the time of my visit he denies any visual field deficit, no new weakness or sensory motor deficit denies any shortness of breath chills fever nausea or vomiting patient states that he takes his tablets with applesauce but has no difficulty swallowing. # blank stare with drooling and left sided weakness: possilbe TIA. rule out seizure. Initial CT head negative for any acute abnormality. chronic right MCA stroke. MRI MRA , echo , doppler ordered. neurology conusultation. get EEG. mri could not be done due to his pacemaker status consultd neurology. EEG with chornic hemispheric changes, not consistent with seizure. neurology suggested increase in keppra which is done to 750 mg po bid. also added aspirin 81 mg po daily. pt/ot /st evalauted. he was more weakeer than beffore and suggested rehabilitation. dsicused with familyi and agreeable for a short term rehab. he is going to [facility]. continue PT/OT/ST To evalute and treat # Chronic ischemic right MCA stroke: on apixaban and statin # CHronic left upper extremity weakness sequelae of right MCA stroke.add aspirin, continue statin. # Dysphagai: # dementia: home med # Atrial fibrilation: rate controlled. anticoagulated. sotalol # DVT proph: on apixaban # Full code Status at Discharge Functional status at discharge: bed bound Overall status at discharge: patient is progressing back to baseline Time Spent with Patient Time attestation: Total time spent providing and/or coordinating discharge services:45 mins Exam Narrative: Exam Narrative: General: comfortable, no acute distress, well developed, alert, awake oriented x3 HENMT: Head: normal to inspection, normocephalic and atraumatic Ears: heari
[2020-08-03 14:02] VITALS: BP 101/70; PULSE 73; RESP 18; TEMP 36.6; O2SAT 99
--- NOTE | 2020-08-03 14:35 | PC.NURSE ---
On 08/03/20, the student, [Chaitanya Taylor], provided care and completed [facility] documentation on this patient. I have reviewed the student's documentation and agree with the findings.
[2020-08-03 16:54] VITALS: PULSE 73
== END 2020-08-03 17:10 ==
LOC: ANHED 18:33 → ANH3MED 22:12
PROVIDERS: Admitting Provider Internal Medicine; Emergency Provider Emergency Medicine; PCP Internal Medicine; Visit Provider Internal Medicine
DX: G45.9 Transient cerebral ischemic attack, unspecified (principal); R29.810 Facial weakness; I69.354 Hemiplegia and hemiparesis following cerebral infarction affecting left non-dominant side; I48.91 Unspecified atrial fibrillation; I69.391 Dysphagia following cerebral infarction; F03.90 Unspecified dementia, unspecified severity, without behavioral disturbance, psychotic disturbance, mood disturbance, and anxiety; G40.909 Epilepsy, unspecified, not intractable, without status epilepticus; Z79.899 Other long term (current) drug therapy; Z95.0 Presence of cardiac pacemaker; Z79.01 Long term (current) use of anticoagulants
CPT/HCPCS: 36415; 70450; 71045; 80048; 80053; 81001; 82948; 85025; 85610; 85730; 92523; 92610; 93005; 93880; 95816; 96360; 96361; 97110; 97116; 97161; 97166; 97530; 99285; A9270; C8929; G0378; J7030; Q9957

== ENCOUNTER 2020-11-29 15:40 | Inpatient (IN) | payer MEDICARE, OTHER, SELFPAY ==
--- NOTE | ~2020-11-29 | XR_ITS ---
EXAMINATION: XR chest 2V DATE: 12/04/2020 14:59 INDICATION: Weakness. TECHNIQUE: Frontal and lateral views of the chest were obtained. COMPARISON: Chest single view 11/30/2020, CT abdomen and pelvis 12/30/2011 FINDINGS: Calcified right lung nodules and calcified right hilar lymph nodes are consistent with old granulomatous disease. No pleural effusion or pneumothorax. Cardiomegaly is noted. There is a left ch est wall pacer with leads in the right atrium and right ventricle. There are prominent paracardial fa t pads. IMPRESSION: 1. Cardiomegaly. Reviewed, dictated and finalized at location A. IMPRESSION: 1. Cardiomegaly.
--- NOTE | ~2020-11-29 | XR_ITS ---
EXAMINATION: XR chest 1V portable DATE: 11/30/2020 16:12 INDICATION: Hypotension. TECHNIQUE: A single frontal view of the chest was obtained. COMPARISON: Chest single view 07/31/2020, CT abdomen and pelvis 12/30/2011 FINDINGS: There are mild airspace opacities in the mid and lower lung zones. No pleural effusion or p neumothorax. Cardiomegaly is noted. There is a prominent left paracardial fat pad. There is a left ch est wall pacer with leads in the right atrium and right ventricle. IMPRESSION: 1. Mild airspace opacities in the mid and lower lung zones, consistent with atelectasis versus pneumo domonique. 2. Cardiomegaly. Reviewed, dictated and finalized at location A. IMPRESSION: 1. Mild airspace opacities in the mid and lower lung zones, consistent with ate lectasis versus pneumonia. 2. Cardiomegaly.
--- NOTE | ~2020-11-29 | CT_ITS ---
EXAMINATION: CT brain wo con DATE: 12/02/2020 12:04 INDICATION: Altered mental status TECHNIQUE: Computed tomography (CT) of the head was performed without intravenous contrast. The dose- length product was 605.33 mGy-cm. Automated exposure control and iterative reconstruction technique w ere employed. COMPARISON: CT dated 07/30/2020 FINDINGS: No acute intracranial hemorrhage, infarction, mass or mass effect. Large right middle cereb ral artery distribution infarction with encephalomalacia. No midline shift. Basilar cisterns are sims nt. There is intracranial atherosclerosis. No depressed skull fractures. There is mild mucosal thicke bri of the maxillary sinuses. Mastoids are pneumatized. IMPRESSION: 1. No acute intracranial abnormality. No significant interval change. Reviewed, dictated and finalized at location A.
--- NOTE | ~2020-11-29 | US_ITS ---
EXAMINATION:US venous doppler LE LT INDICATION:Left leg swelling TECHNIQUE: Multiple grayscale, color flow and Doppler images of the left lower extremity deep venous systems were obtained and reviewed. COMPARISON:Ultrasound dated 07/24/2016 FINDINGS: There is deep venous thrombosis of the left common femoral, femoral, popliteal and posterio r tibial veins, likely chronic. There is normal flow in the left peroneal, gastrocnemius and greater saphenous veins. IMPRESSION: 1: Extensive left lower extremity deep venous thrombosis, likely at least partially chronic. Reviewed, dictated and finalized at location A. IMPRESSION: 1: Extensive left lower extremity deep venous thrombosis, likely at least parti ally chronic.
[2020-11-29 16:12] VITALS: BP 137/90; PULSE 70; RESP 14; TEMP 36.6; O2SAT 99
[2020-11-29 18:28] VITALS: BP 119/73; PULSE 70; TEMP 36.6; O2SAT 100
[2020-11-29 20:17] LABS: Basophils Percent Auto 0.1 % (0.2-1.2); Eosinophils Percent Auto 0.3 % (0-4.4); Hematocrit 37.3 % (42.0-52.0); Hemoglobin 12.3 g/dL (14.0-18.0); Immature Granulocyte Absolute 0.01 K/mm3 (0.00-0.031); Immature Granulocyte Percent A 0.1 % (0-0.5); Immature Platelet Fraction Pct 4.6 % (0.9-11.2); Lymphocytes Absolute Auto 1.24 K/mm3 (0.9-3.2); Lymphocytes Percent Auto 18.2 % (18.3-44.2); Mean Corpuscular Hemoglobin 32.4 pg (26-34); Mean Corpuscular Volume 98.2 fl (80-100); Mean Platelet Volume 10.6 fl (7.4-10.4); Monocytes Absolute Auto 0.2 K/mm3 (0.1-0.6); Monocytes Percent Auto 2.5 % (2.6-8.5); Neutrophils Absolute Auto 5.4 K/mm3 (1.3-6.7); Neutrophils Percent Auto 78.8 % (45.5-73.1); Platelet Count Result 141 k/mm3 (150-375); White Blood Count 6.8 K/mm3 (4.5-10.0)
--- NOTE | 2020-11-29 20:41 | ED.GENADULT ---
HPI - General Adult General Chief complaint: Allergic Reaction Stated complaint: rash Time Seen by Provider: 11/29/20 19:18 History of Present Illness HPI narrative: Patient is an 80-year-old male with history of CVA and left-sided weakness who presents the ER with skin changes. First noticed 3 days ago and have since progressed. He has a red raised rash to his bilateral upper extremities and bilateral lower extremities. The most prominent is over the buttock bilaterally extending down the posterior thighs as well as the medial and volar aspect of the right upper extremity. Rashes diffusely red/pink and warm to touch. No tenderness or pruritus. No excoriations noted. Patient has no pustules or vesicles. Denies fevers or chills or sweats. Patient reports taking Macrobid for an infection and finishing the medication 9 days ago. Patient did purchase new washrag's 3 days ago that may be related to this. No new lotions or perfumes. No new soaps/detergents. Patient has cognitive impairment and history is limited. Related Data Home Medications Medication Instructions Recorded Confirmed Eliquis 5 mg PO BID 07/30/20 10/10/20 atorvastatin 40 mg tablet 40 mg PO DAILY 07/30/20 10/10/20 buspirone 10 mg tablet 10 mg PO BID 07/30/20 10/10/20 carvedilol 3.125 mg tablet 3.125 mg PO BID tablet 07/30/20 10/10/20 cyanocobalamin (vitamin B-12) 1,000 mcg PO DAILY 07/30/20 10/10/20 docusate sodium 100 mg capsule 100 mg PO DAILY PRN 07/30/20 10/10/20 donepezil 10 mg tablet 10 mg PO QHS 07/30/20 10/10/20 furosemide 20 mg tablet 20 mg PO QAM 07/30/20 10/10/20 magnesium oxide 400 mg (241.3 mg 400 mg PO DAILY 07/30/20 10/10/20 magnesium) tablet pantoprazole 40 mg tablet,delayed 40 mg PO QAM 07/30/20 10/10/20 release sertraline 100 mg tablet 200 mg PO DAILY 07/30/20 10/10/20 sotalol 80 mg PO HS 07/30/20 10/10/20 tamsulosin 0.4 mg capsule 0.4 mg PO DAILY 07/30/20 10/10/20 Allergies Allergy/AdvReac Type Severity Reaction Status Date / Time No Known Allergies Allergy Verified 10/10/20 13:50 Review of Systems Review of Systems: ROS unobtainable: Yes unobtainable due to mental status PMFSH Past Medical History Medical History (Updated 11/29/20 @ 21:25 by Fer Sanchez MD) BPH (benign prostatic hyperplasia) Chronic ischemic right MCA stroke Colon polyps Dementia Dysphagia as late effect of cerebrovascular accident (CVA) Pacemaker Paralysis of left upper extremity Surgical History Surgical History S/P ablation of atrial fibrillation Family History Family History Father Mother Other No significant family history Social History Social History Smoking status: Never smoker Alcohol intake: never Substance use: never Gender identity (if verbalized by the patient): Male Spiritual care concerns: No Exam Narrative: GENERAL: Chronically ill-appearing, well-nourished, and in no acute distress. HEAD: Normocephalic, atraumatic. ENT: Mucous membranes moist. CHEST: Clear to auscultation. No respiratory distress. HEART: Regular rate and rhythm. Normal peripheral pulses. ABDOMEN: Soft, nontender, nondistended. EXTREMITIES: Patient with chronic weakness left upper extremity from previous stroke with contracture. Diffusely weak in arms and legs that is chronic. SKIN: Warm, dry. Prominent rash noted to the buttock extending down the thighs posteriorly. Redness noted. It is raised and well-demarcated. There are couple areas that are circular and erythematous with some central clearing that appear to be erythema multiforme. There is additional prominent raised red rash to the right upper extremity going from axilla to the mid forearm. Upon removing shirt it is noted that this rash extends into his chest and parts of his back and there additional spotty are
[2020-11-29 20:48] LABS: Anion Gap 10 mmol/L (8-16); Blood Urea Nitrogen 35 mg/dL (9-20); Calcium 9.3 mg/dL (8.4-10.2); Carbon Dioxide 24 mmol/L (22-30); Chloride 107 mmol/L (98-107); Estimated CRCL calculation 44 ml/min; Estimated Glomerular Filt Rate 49; Glucose 124 mg/dL (65-110); Potassium 4.2 mmol/L (3.4-5.0); Sodium 141 mmol/L (137-145)
[2020-11-29 22:28] VITALS: BP 120/71; PULSE 70; RESP 18; O2SAT 98
--- NOTE | 2020-11-29 22:44 | PM.IMHP ---
H&P: HPI History of Present Illness Date/Time: 11/29/20 22:44 Chief Complaint: Rash Narrative: This is an 80-year-old male with past medical history significant for old stroke, right-sided hemiparesis, dementia, hypertension, benign prostatic hyperplasia, atrial fibrillation rate controlled anticoagulated. Patient just concluded a nitrofurantoin course was brought to the emergency room due to rash that appear diffusely localized macular papular erythematous. No fevers, no rigors, no chills ,no nausea ,no vomiting ,no diarrhea, no abdominal pain, no shortness of breath ,no cough ,no sputum production, no chest pain, no PND ,no orthopnea. Preliminary workup has been essentially nonrevealing. Patient has been placed for observation for further treatment management and evaluation. Review of Systems Review of Systems: History has been obtained from son who is at bedside ROS unobtainable: Yes unobtainable due to medical condition (Dementia) [facility] Past Medical History Medical History (Updated 11/30/20 @ 05:02 by Juan Jose Temple MD) BPH (benign prostatic hyperplasia) Chronic ischemic right MCA stroke Colon polyps Dementia Dysphagia as late effect of cerebrovascular accident (CVA) Pacemaker Paralysis of left upper extremity Surgical History Surgical History S/P ablation of atrial fibrillation Family History Family History Father Mother Other No significant family history Social History Social History Smoking status: Never smoker Alcohol intake: never Substance use: never Gender identity (if verbalized by the patient): Male Spiritual care concerns: No Meds Home Medications and Allergies Home Medications Medication Instructions Recorded Confirmed Type Eliquis 5 mg PO BID 07/30/20 11/30/20 History atorvastatin 40 mg tablet 40 mg PO DAILY 07/30/20 11/30/20 History carvedilol 3.125 mg tablet 3.125 mg PO BID tablet 07/30/20 11/30/20 History cyanocobalamin (vitamin B-12) 1,000 mcg PO DAILY 07/30/20 11/30/20 History docusate sodium 100 mg capsule 100 mg PO DAILY PRN 07/30/20 11/30/20 History donepezil 10 mg tablet 10 mg PO QHS 07/30/20 11/30/20 History furosemide 20 mg tablet 20 mg PO QAM 07/30/20 11/30/20 History magnesium oxide 400 mg (241.3 mg 400 mg PO DAILY 07/30/20 11/30/20 History magnesium) tablet pantoprazole 40 mg tablet,delayed 40 mg PO QAM 07/30/20 11/30/20 History release sertraline 100 mg tablet 200 mg PO DAILY 07/30/20 11/30/20 History sotalol 80 mg PO HS 07/30/20 11/30/20 History tamsulosin 0.4 mg capsule 0.4 mg PO DAILY 07/30/20 11/30/20 History aspirin 81 mg PO QAM #30 tablet 08/03/20 11/30/20 Rx levetiracetam 750 mg PO Q12HR #60 tablet 08/03/20 11/30/20 Rx aripiprazole [Abilify] 5 mg PO HS 11/30/20 11/30/20 History finasteride 5 mg PO DAILY 11/30/20 11/30/20 History lorazepam [Ativan] 0.5 mg PO HS 11/30/20 11/30/20 History Allergies Allergy/AdvReac Type Severity Reaction Status Date / Time No Known Allergies Allergy Verified 10/10/20 13:50 Vital Signs Vital Signs - 24 hr 11/29/20 16:12 11/29/20 18:28 11/29/20 22:28 Temperature 97.8 F 97.8 F Pulse Rate 70 70 70 Respiratory Rate 14 18 Blood Pressure 137/90 119/73 120/71 Pulse Oximetry 99 100 98 Exam Narrative: Patient is laying in in [facility] [place] Const: General: cooperative, comfortable, no acute distress, well developed, alert and awake Nutritional Appearance: average body habitus Orientation/consciousness: patient oriented x3 HENMT: Head: normal to inspection, normocephalic and atraumatic Ears: hearing grossly normal bilaterally General nose exam: Normal external nose present Face and sinus: normal facial exam Mouth: Yes Normal oral and palatal mucosa present Eyes: General: appearance normal, both eyes and all related structures Alignment
[2020-11-30] VITALS (11 sets, daily range): BP systolic 102–136; BP diastolic 52–70; PULSE 70–74; RESP 16–20; TEMP 36.4–37.2; O2SAT 93–97; BMI 31.8
[2020-11-30] MEDS: CYANOCOBALAMIN 1,000 MCG TABLET 1000 MCG PO (09:35)
[2020-11-30] MEDS: ASPIRIN 81 MG ENTERIC TABLET PO (09:35)
[2020-11-30] MEDS: PANTOPRAZOLE 40 MG TABLET PO (09:35)
[2020-11-30] MEDS: SERTRALINE HCL 50 MG TABLET 200 MG PO (09:35)
[2020-11-30] MEDS: ATORVASTATIN 40 MG TABLET PO (09:35)
[2020-11-30] MEDS: TAMSULOSIN HCL 0.4 MG CAPSULE PO (09:35)
[2020-11-30] MEDS: MAGNESIUM OXIDE 400 MG TABLET PO (09:35)
[2020-11-30] MEDS: APIXABAN 5 MG TABLET PO ×2 (09:35→16:37)
[2020-11-30] MEDS: FINASTERIDE 5 MG TABLET PO (09:35)
[2020-11-30] MEDS: FUROSEMIDE 20 MG TABLET PO (09:35)
[2020-11-30] MEDS: levETIRAcetam 250 MG TABLET 750 MG PO ×2 (09:35→20:08)
[2020-11-30] MEDS: carvediloL 3.125 MG TABLET PO ×2 (09:58→16:36)
[2020-11-30] MEDS: diphenhydrAMINE HCl INJ 50 MG/ML VIAL 25 MG IV PUSH ×2 (14:52→20:08)
[2020-11-30] MEDS: LORATADINE 10 MG TABLET PO (14:55)
[2020-11-30] MEDS: FAMOTIDINE 20 MG/2 ML VIAL IV PUSH ×2 (14:55→20:08)
[2020-11-30] MEDS: methylPREDNISolone SOD SUCC 125 MG VIAL 60 MG IV PUSH ×2 (14:59→20:08)
--- NOTE | 2020-11-30 15:35 | PM.IMPN ---
Progress Note: A&P Assessment and Plan (1) Drug reaction: Code(s): T50.905A - Adverse effect of unspecified drugs, medicaments and biological substances, initial encounter Status: Acute Assessment and Plan: Rash and facial swelling could be due to recent antibiotic use with Macrobid although etiology is not entirely clear. Meds have been reviewed. -due to facial swelling will start steroids, Benadryl, Pepcid and Claritin have been started -will monitor closely -may need biopsy if it does not improve with above tx -will stop abx for now and monitor -wound consult (2) Atrial fibrillation: Code(s): I48.91 - Unspecified atrial fibrillation Status: Acute Assessment and Plan: Continue sotalol, carvdilol, and Eliquis -appeared to be in normal sinus (3) Chronic ischemic right MCA stroke: Code(s): I69.30 - Unspecified sequelae of cerebral infarction Status: Acute Assessment and Plan: Continue aspirin, eliquis, and statin (4) Dementia: Code(s): F03.90 - Unspecified dementia without behavioral disturbance Status: Acute Assessment and Plan: Unchanged Continue aripiprazole and donepezil (5) HTN (hypertension), benign: Code(s): I10 - Essential (primary) hypertension Status: Acute Assessment and Plan: last bp 108/52 -continue carvdilol and lasix (6) Anxiety: Code(s): F41.9 - Anxiety disorder, unspecified Status: Acute Assessment and Plan: Chronic and stable -continue zoloft and abilify Time Spent With Patient Time with patient: 25 - 35 minutes Subjective Date/time seen: 11/30/20 15:35 Interval history: Pt is a 80-year-old male here for rash. Patient was seen today and states that he feels okay. The rash on his back is a little irritative but does not hurt nor does it itch. he states he just realized his lip was swollen and thinks it just started prior to me coming into the room. He has no problems breathing, scratchy throat, or enlarged tongue. He also has no nausea, vomiting, diarrhea, chest pain or shortness of breath. Review of Systems Review of Systems: All systems reviewed & are unremarkable except as noted in HPI and below Exam Narrative: General: Well developed well nourished patient in NAD HEENT: Lower lip was swelling. No swelling to the tongue. Poor dentition Neck: supple Neuro: Alert and oriented to himself, location but got the year and president wrong. He was able to follow commands and hold a conversation. resting tremor noted CV:RRR Resp:CTA Abd: Soft, non distended. No pain to palpation. Positive bowel sounds Extremities: No swelling, erythema, or pain to palpation. skin: large whelp/wheal like skin lesions to the back, groin, buttock and thigh. Objective Data Vital Signs Vital Signs: Vital Signs - 24 hr 11/29/20 16:12 11/29/20 18:28 11/29/20 22:28 Temperature 97.8 F 97.8 F Pulse Rate 70 70 70 Respiratory Rate 14 18 Blood Pressure 137/90 119/73 120/71 Pulse Oximetry 99 100 98 11/30/20 00:01 11/30/20 00:05 11/30/20 05:51 Temperature 97.7 F 97.8 F Pulse Rate 70 70 70 Respiratory Rate 20 20 16 Blood Pressure 117/68 136/70 Pulse Oximetry 97 97 97 11/30/20 09:27 11/30/20 09:58 11/30/20 14:40 Temperature 97.6 F Pulse Rate 70 70 Respiratory Rate 18 Blood Pressure 108/52 L Pulse Oximetry 94 95 Intake/Output Intake/Output: Intake & Output 11/27/20 11/28/20 11/29/20 11/30/20 23:59 23:59 23:59 23:59 Intake Total 470 Balance 470 Meds/Results Medications: Active Medications Generic Name Dose Route Start Last Admin Trade Name Ramboq PRN Reason Stop Dose Admin Apixaban 5 mg 11/30/20 09:00 11/30/20 09:35 Apixaban 5 Mg Tablet PO 5 mg BID NATHAN Administration Aripiprazole 5 mg 11/30/20 21:00 Aripiprazole 5 Mg Tablet PO HS NATHAN Aspirin 81 mg 11/30/20 09:00 11/30/20 09:3
[2020-11-30] MEDS: DONEPEZIL HCL 10 MG TABLET PO (20:08)
[2020-11-30] MEDS: LORazepam (*CRX) 0.5 MG TABLET PO (20:08)
[2020-11-30] MEDS: ARIPiprazole 5 MG TABLET PO (20:08)
[2020-11-30] MEDS: SOTALOL HCL 80 MG TABLET PO (20:08)
[2020-12-01] VITALS (7 sets, daily range): BP systolic 118–134; BP diastolic 61–79; PULSE 70–79; RESP 16–18; TEMP 36–36.7; O2SAT 96–97
[2020-12-01] MEDS: methylPREDNISolone SOD SUCC 125 MG VIAL 60 MG IV PUSH ×3 (03:04→20:42)
[2020-12-01] MEDS: diphenhydrAMINE HCl INJ 50 MG/ML VIAL 25 MG IV PUSH ×3 (03:04→20:40)
[2020-12-01 05:34] LABS: Hematocrit 33.7 % (42.0-52.0); Hemoglobin 11.3 g/dL (14.0-18.0); Immature Granulocyte Absolute 0.02 K/mm3 (0.00-0.031); Immature Granulocyte Percent A 0.4 % (0-0.5); Lymphocytes Absolute Auto 0.84 K/mm3 (0.9-3.2); Lymphocytes Percent Auto 14.9 % (18.3-44.2); Mean Corpuscular HGB Conc 33.5 g/dl (32-36); Mean Corpuscular Hemoglobin 32.6 pg (26-34); Mean Corpuscular Volume 97.1 fl (80-100); Monocytes Absolute Auto 0.1 K/mm3 (0.1-0.6); Monocytes Percent Auto 0.9 % (2.6-8.5); Neutrophils Absolute Auto 4.7 K/mm3 (1.3-6.7); Neutrophils Percent Auto 83.8 % (45.5-73.1); Platelet Count Result 119 k/mm3 (150-375); Red Blood Count 3.47 M/mm3 (4.6-6.20); Red Cell Distribution Width 12.6 % (11.5-14.5); White Blood Count 5.6 K/mm3 (4.5-10.0)
[2020-12-01 06:05] LABS: Anion Gap 10 mmol/L (8-16); Blood Urea Nitrogen 32 mg/dL (9-20); CRP 11.9 mg/dL (<1.0); Calcium 9.1 mg/dL (8.4-10.2); Carbon Dioxide 24 mmol/L (22-30); Chloride 105 mmol/L (98-107); Estimated CRCL calculation 60 ml/min; Estimated Glomerular Filt Rate > 60; Glucose 136 mg/dL (65-110); Potassium 3.9 mmol/L (3.4-5.0); Sodium 139 mmol/L (137-145)
[2020-12-01] MEDS: LORATADINE 10 MG TABLET PO (08:16)
[2020-12-01] MEDS: APIXABAN 5 MG TABLET PO ×2 (08:16→17:16)
[2020-12-01] MEDS: levETIRAcetam 250 MG TABLET 750 MG PO ×2 (08:16→20:38)
[2020-12-01] MEDS: FINASTERIDE 5 MG TABLET PO (08:16)
[2020-12-01] MEDS: carvediloL 3.125 MG TABLET PO ×2 (08:16→17:16)
[2020-12-01] MEDS: SERTRALINE HCL 50 MG TABLET 200 MG PO (08:16)
[2020-12-01] MEDS: CYANOCOBALAMIN 1,000 MCG TABLET 1000 MCG PO (08:16)
[2020-12-01] MEDS: TAMSULOSIN HCL 0.4 MG CAPSULE PO (08:17)
[2020-12-01] MEDS: MAGNESIUM OXIDE 400 MG TABLET PO (08:17)
[2020-12-01] MEDS: PANTOPRAZOLE 40 MG TABLET PO (08:17)
[2020-12-01] MEDS: ATORVASTATIN 40 MG TABLET PO (08:17)
[2020-12-01] MEDS: ASPIRIN 81 MG ENTERIC TABLET PO (08:17)
[2020-12-01] MEDS: FUROSEMIDE 20 MG TABLET PO (08:17)
[2020-12-01] MEDS: FAMOTIDINE 20 MG/2 ML VIAL IV PUSH ×2 (08:18→20:40)
--- NOTE | 2020-12-01 11:32 | PM.IMPN ---
Progress Note: A&P Assessment and Plan (1) Drug reaction: Code(s): T50.905A - Adverse effect of unspecified drugs, medicaments and biological substances, initial encounter Status: Acute Assessment and Plan: Improving. Rash and facial swelling could be due to recent antibiotic use with Macrobid although etiology is not entirely clear. Meds have been reviewed. -due to facial swelling 11/30, he was placed on steroids, Benadryl, Pepcid and Claritin. Will wean down the steroids and Benadryl. -may need biopsy if it does not improve with above tx but so far it is improving -will stop abx for now and monitor -wound consult (2) Atrial fibrillation: Code(s): I48.91 - Unspecified atrial fibrillation Status: Acute Assessment and Plan: Continue sotalol, carvdilol, and Eliquis -appeared to be in normal sinus -no signs of HF on exam (3) Chronic ischemic right MCA stroke: Code(s): I69.30 - Unspecified sequelae of cerebral infarction Status: Acute Assessment and Plan: Continue aspirin, eliquis, and statin (4) Dementia: Code(s): F03.90 - Unspecified dementia without behavioral disturbance Status: Acute Assessment and Plan: Unchanged Continue aripiprazole and donepezil (5) HTN (hypertension), benign: Code(s): I10 - Essential (primary) hypertension Status: Acute Assessment and Plan: last bp 123/71 -continue carvdilol and lasix (6) Anxiety: Code(s): F41.9 - Anxiety disorder, unspecified Status: Acute Assessment and Plan: Chronic and stable -continue zoloft and abilify (7) Generalized weakness: Code(s): R53.1 - Weakness Status: Acute Assessment and Plan: Pt discharged from [facility] around sep and was able to use an electric wheelchair and hemicane at home. he has gotten weaker and walks only about 10 feet now. The daughter noticed he was feeling more weak thursday before the rash appeared. Pt continues to feel weak. Will get him out of bed 3x a day and continue with PT and OT. May need SNF at d/c. No signs of infection. UA normal and CXR favors atelectasis since pt has no leukocytosis, fever, cough, and has not been very mobile. Subjective Date/time seen: 12/01/20 11:32 Interval history: Pt is a 80-year-old male here for rash. patient was seen today and states he has little anxiety but overall is doing okay. He says the rash on his back and his legs is not bothering him. It does not hurt or itch. He says he still feels weak and has not gotten out of bed yet today. He is eating and drinking okay. he denies cough, shortness breath or chest pain. I called his daughter and spoke with her about the situation. She states that the rash started on the and was getting worse So that is why he was brought in. He was discharged from [facility] in September and was able to use a cane and electric wheelchair. he does not move around much but was able to walk about 10 ft at home with assistance. She noticed that on the he was lying in bed more and not really getting out of bed and feeling weak. The weakness started after the urinary tract infection. he has no history of recent immunizations. She also mentions that the UTI was diagnosed by home health without a urinalysis and he took 5 days of Macrobid. Exam Narrative: General: Well developed well nourished patient in [facility] HEENT: lower lip within normal limits, no further swelling. No swelling to the tongue. Poor dentition Neck: supple Neuro: Alert and oriented to himself, location but got the year and president wrong. He was able to follow commands and hold a conversation. resting tremor noted CV:RRR Resp:CTA Abd: Soft, non distended. No pain to palpation. Positive bowel sounds Extremities: Left leg more swollen than the right without pitting edema or erythema. Slight pain to palpation to left leg ski
[2020-12-01] MEDS: DONEPEZIL HCL 10 MG TABLET PO (20:38)
[2020-12-01] MEDS: LORazepam (*CRX) 0.5 MG TABLET PO (20:38)
[2020-12-01] MEDS: ARIPiprazole 5 MG TABLET PO (20:38)
[2020-12-01] MEDS: SOTALOL HCL 80 MG TABLET PO (20:38)
[2020-12-02] VITALS (8 sets, daily range): BP systolic 118–134; BP diastolic 60–78; PULSE 70–72; RESP 16–20; TEMP 35.9–37; O2SAT 96–99
[2020-12-02 05:35] LABS: Hematocrit 31.5 % (42.0-52.0); Hemoglobin 10.7 g/dL (14.0-18.0)
[2020-12-02 05:47] LABS: Anion Gap 8 mmol/L (8-16); Blood Urea Nitrogen 39 mg/dL (9-20); CRP 4.1 mg/dL (<1.0); Calcium 9.1 mg/dL (8.4-10.2); Carbon Dioxide 26 mmol/L (22-30); Chloride 106 mmol/L (98-107); Estimated CRCL calculation 50 ml/min; Estimated Glomerular Filt Rate 58; Glucose 91 mg/dL (65-110); Potassium 3.8 mmol/L (3.4-5.0); Sodium 140 mmol/L (137-145)
[2020-12-02] MEDS: PANTOPRAZOLE 40 MG TABLET PO (08:20)
[2020-12-02] MEDS: TAMSULOSIN HCL 0.4 MG CAPSULE PO (08:20)
[2020-12-02] MEDS: CYANOCOBALAMIN 1,000 MCG TABLET 1000 MCG PO (08:20)
[2020-12-02] MEDS: carvediloL 3.125 MG TABLET PO ×2 (08:20→16:34)
[2020-12-02] MEDS: APIXABAN 5 MG TABLET PO ×2 (08:21→16:34)
[2020-12-02] MEDS: FINASTERIDE 5 MG TABLET PO (08:21)
[2020-12-02] MEDS: LORATADINE 10 MG TABLET PO (08:21)
[2020-12-02] MEDS: ASPIRIN 81 MG ENTERIC TABLET PO (08:21)
[2020-12-02] MEDS: ATORVASTATIN 40 MG TABLET PO (08:21)
[2020-12-02] MEDS: SERTRALINE HCL 50 MG TABLET 200 MG PO (08:21)
[2020-12-02] MEDS: levETIRAcetam 250 MG TABLET 750 MG PO ×2 (08:21→20:06)
[2020-12-02] MEDS: FUROSEMIDE 20 MG TABLET PO (08:21)
[2020-12-02] MEDS: diphenhydrAMINE HCl INJ 50 MG/ML VIAL 25 MG IV PUSH (08:24)
[2020-12-02] MEDS: methylPREDNISolone SOD SUCC 125 MG VIAL 60 MG IV PUSH (08:24)
[2020-12-02] MEDS: FAMOTIDINE 20 MG/2 ML VIAL IV PUSH ×2 (08:24→20:06)
[2020-12-02] MEDS: MAGNESIUM OXIDE 400 MG TABLET PO (08:25)
[2020-12-02 09:50] LABS: Add Urine Microscopic? NO; Appearance Urine Clear (Clear); Bilirubin Urine Negative (Negative); Blood Urine Negative (Negative); Color Urine Yellow (Yellow); Glucose Urine UA Negative (Negative); Ketones Urine Negative (Negative); Leukocyte Esterase Ur Negative LEU/UL (Negative); Nitrate Urine Negative (Negative); Protein Urine Negative (Negative); Specific Grav Ur 1.018 (1.001-1.035); Urobilinogen Urine Negative mg/dL (<2.0)
--- NOTE | 2020-12-02 11:26 | PM.IMPN ---
Progress Note: A&P Assessment and Plan (1) Drug reaction: Code(s): T50.905A - Adverse effect of unspecified drugs, medicaments and biological substances, initial encounter Status: Acute Assessment and Plan: Improving. Rash and facial swelling could be due to recent antibiotic use with Macrobid although etiology is not entirely clear. Meds have been reviewed. -due to facial swelling 11/30, he was placed on steroids, Benadryl, Pepcid and Claritin. They were weaned yesterday and I will transition her to oral steroids today and make Benadryl prn. -no further abx needed -wound consult (2) Atrial fibrillation: Code(s): I48.91 - Unspecified atrial fibrillation Status: Acute Assessment and Plan: Continue sotalol, carvdilol, and Eliquis -appeared to be in normal sinus -no signs of HF on exam (3) Chronic ischemic right MCA stroke: Code(s): I69.30 - Unspecified sequelae of cerebral infarction Status: Acute Assessment and Plan: Continue aspirin, eliquis, and statin (4) Dementia: Code(s): F03.90 - Unspecified dementia without behavioral disturbance Status: Acute Assessment and Plan: Pt is more confused today but no new neurological deficits. Will obtain heat CT to ensure no acute pathology and monitor overnight. -Continue aripiprazole and donepezil (5) HTN (hypertension), benign: Code(s): I10 - Essential (primary) hypertension Status: Acute Assessment and Plan: last bp 118/68 -continue carvdilol and lasix (6) Anxiety: Code(s): F41.9 - Anxiety disorder, unspecified Status: Acute Assessment and Plan: Chronic and stable -continue zoloft and abilify (7) Generalized weakness: Code(s): R53.1 - Weakness Status: Acute Assessment and Plan: Pt discharged from [facility] around sep and was able to use an electric wheelchair and hemicane at home. he has gotten weaker and walks only about 10 feet now. The daughter noticed he was feeling more weak thursday before the rash appeared. Pt continues to feel weak. Will get him out of bed 3x a day and continue with PT and OT. May need SNF at d/c. No signs of infection. UA normal and CXR favors atelectasis since pt has no leukocytosis, fever, cough, and has not been very mobile. (8) Left leg DVT: Code(s): I82.402 - Acute embolism and thrombosis of unspecified deep veins of left lower extremity Status: Acute Assessment and Plan: Patient has a history of DVT in the left leg from 2017. New ultrasound shows similar distribution of clot and is likely at least partially chronic. There are no signs of acute DVT such as erythema, pain or warmth. The patient has an IVC filter and is on Eliquis. I do not think that he needs to be transition to warfarin at this time but will monitor. Subjective Date/time seen: 12/02/20 11:26 Interval history: Pt is a 80-year-old male here for rash. Pt was seen today and a little more confused today compared to yesterday. He was able to hold a conversation and answer questions but kept thinking he was in a car. He couldn't remember why he was in the hospital. He denies SOB, CP, nausea, vomiting, feves or chills. 12/01 I called his daughter and spoke with her about the situation. She states that the rash started on the and was getting worse So that is why he was brought in. He was discharged from [facility] in September and was able to use a cane and electric wheelchair. he does not move around much but was able to walk about 10 ft at home with assistance. She noticed that on the he was lying in bed more and not really getting out of bed and feeling weak. The weakness started after the urinary tract infection. he has no history of recent immunizations. She also mentions that the UTI was diagnosed by home health without a urinalysis and he took 5 days of Macrobid. E
--- NOTE | 2020-12-02 11:42 | PCOTNOTE ---
Attempted to see patient at this time. Before entry, testing tech arrived to take patient for a CAT scan. Will attempt to see patient for a second attempt later this date. Will continue per POC.
[2020-12-02] MEDS: ARIPiprazole 5 MG TABLET PO (20:05)
[2020-12-02] MEDS: DONEPEZIL HCL 10 MG TABLET PO (20:05)
[2020-12-02] MEDS: SOTALOL HCL 80 MG TABLET PO (20:06)
[2020-12-02] MEDS: LORazepam (*CRX) 0.5 MG TABLET PO (20:09)
[2020-12-03] VITALS (7 sets, daily range): BP systolic 110–130; BP diastolic 62–69; PULSE 70–80; RESP 16–18; TEMP 36.2–36.7; O2SAT 96–99
[2020-12-03 05:41] LABS: Hematocrit 33.9 % (42.0-52.0); Hemoglobin 11.4 g/dL (14.0-18.0)
[2020-12-03 05:52] LABS: Anion Gap 5 mmol/L (8-16); Blood Urea Nitrogen 33 mg/dL (9-20); Calcium 8.8 mg/dL (8.4-10.2); Carbon Dioxide 30 mmol/L (22-30); Chloride 106 mmol/L (98-107); Estimated CRCL calculation 55 ml/min; Estimated Glomerular Filt Rate > 60; Glucose 91 mg/dL (65-110); Potassium 3.7 mmol/L (3.4-5.0); Sodium 141 mmol/L (137-145)
[2020-12-03] MEDS: levETIRAcetam 250 MG TABLET 750 MG PO ×2 (08:02→20:50)
[2020-12-03] MEDS: ASPIRIN 81 MG ENTERIC TABLET PO (08:02)
[2020-12-03] MEDS: predniSONE 20 MG TABLET 40 MG PO (08:02)
[2020-12-03] MEDS: FUROSEMIDE 20 MG TABLET PO (08:03)
[2020-12-03] MEDS: TAMSULOSIN HCL 0.4 MG CAPSULE PO (08:03)
[2020-12-03] MEDS: CYANOCOBALAMIN 1,000 MCG TABLET 1000 MCG PO (08:03)
[2020-12-03] MEDS: SERTRALINE HCL 50 MG TABLET 200 MG PO (08:03)
[2020-12-03] MEDS: ATORVASTATIN 40 MG TABLET PO (08:03)
[2020-12-03] MEDS: PANTOPRAZOLE 40 MG TABLET PO (08:03)
[2020-12-03] MEDS: APIXABAN 5 MG TABLET PO ×2 (08:03→17:08)
[2020-12-03] MEDS: MAGNESIUM OXIDE 400 MG TABLET PO (08:03)
[2020-12-03] MEDS: FINASTERIDE 5 MG TABLET PO (08:03)
[2020-12-03] MEDS: FAMOTIDINE 20 MG/2 ML VIAL IV PUSH ×2 (08:03→20:51)
[2020-12-03] MEDS: carvediloL 3.125 MG TABLET PO ×2 (08:07→17:08)
[2020-12-03] MEDS: LORATADINE 10 MG TABLET PO (08:08)
--- NOTE | 2020-12-03 12:25 | P.CDI_ITS ---
CDI Query Clarification Request -Left leg DVT: Acute embolism and thrombosis of unspecified deep veins of left lower extremity documented - Patient has a history of DVT in the left leg from 2017. New ultrasound shows similar distribution of clot and is likely at least partially chronic. There are no signs of acute DVT documented. -Venous doppler:FINDINGS: There is deep venous thrombosis of the left common femoral, femoral, popliteal and posterior tibial veins, likely chronic. Please clarify acuity of left leg DVT: * Acute * Chronic * Acute on chronic * Unable to determine
--- NOTE | 2020-12-03 14:00 | PM.IMPN ---
Progress Note: A&P Assessment and Plan (1) Drug reaction: Code(s): T50.905A - Adverse effect of unspecified drugs, medicaments and biological substances, initial encounter Status: Acute Assessment and Plan: Resolved. Rash and facial swelling could be due to recent antibiotic use with Macrobid although etiology is not entirely clear. Meds have been reviewed. -due to facial swelling 11/30, he was placed on steroids, Benadryl, Pepcid and Claritin. They were weaned and he is now on oral prednisone and Benadryl prn. -no further abx needed -wound consult (2) Atrial fibrillation: Code(s): I48.91 - Unspecified atrial fibrillation Status: Acute Assessment and Plan: Continue sotalol, carvdilol, and Eliquis -appeared to be in normal sinus -no signs of HF on exam (3) Chronic ischemic right MCA stroke: Code(s): I69.30 - Unspecified sequelae of cerebral infarction Status: Acute Assessment and Plan: Continue aspirin, eliquis, and statin (4) Dementia: Code(s): F03.90 - Unspecified dementia without behavioral disturbance Status: Acute Assessment and Plan: At baseline -head CT neg for acute pathology -Continue aripiprazole and donepezil (5) HTN (hypertension), benign: Code(s): I10 - Essential (primary) hypertension Status: Acute Assessment and Plan: last bp 110/62 -continue carvdilol and lasix (6) Anxiety: Code(s): F41.9 - Anxiety disorder, unspecified Status: Acute Assessment and Plan: Chronic and stable -continue zoloft and abilify (7) Generalized weakness: Code(s): R53.1 - Weakness Status: Acute Assessment and Plan: Pt discharged from [facility] around sep and was able to use an electric wheelchair and hemicane at home. he has gotten weaker and walks only about 10 feet now. The daughter noticed he was feeling more weak thursday before the rash appeared. Pt continues to feel weak. Will get him out of bed 3x a day and continue with PT and OT. Daughter came to evaluate him and she is unable to safely care for him at home at this time. He will need SNF at d/c (8) Left leg DVT: Code(s): I82.402 - Acute embolism and thrombosis of unspecified deep veins of left lower extremity Status: Acute Assessment and Plan: Patient has a history of DVT in the left leg from 2017. New ultrasound shows similar distribution of clot and is likely at least partially chronic. There are no signs of acute DVT such as erythema, pain or warmth. The patient has an IVC filter and is on Eliquis. I do not think that he needs to be transition to warfarin at this time but will monitor. Subjective Date/time seen: 12/03/20 1400 Interval history: Late Entry Pt is a 80-year-old male here for rash. Pt was seen today and feeling well. He had no complaints but continues to feel weak. He denies CP, nausea, vomiting, fevers, chills, CP, or SOB. He requested he talk to his daughter, calista and I called her at bedside and spoke with her about plan of care. She decided to come up to the hospital to see if she could take care of him at home as he has been getting progressively weaker. Exam Narrative: General: Well developed well nourished patient in NAD HEENT: lower lip within normal limits, no further swelling. No swelling to the tongue. Poor dentition Neck: supple Neuro: Alert and oriented to himself and location today. He was able to follow commands and hold a conversation.. resting tremor noted. Hemiparalysis of the left. right side WNL CV:RRR Resp:CTA Abd: Soft, non distended. No pain to palpation. Positive bowel sounds Extremities: Left leg more swollen than the right without pitting edema or erythema. skin: diffuse rash resolved Objective Data Vital Signs Vital Signs: Vital Signs - 24 hr 12/03/20 08:07 12/03/20 14:00 12/03/20 17:08 [facility]
--- NOTE | 2020-12-03 14:22 | PM.DS ---
DS: Summary Hospital Course Hospital Course: dos 12/03/20 Time Spent with Patient Time attestation: Total time spent providing and/or coordinating discharge services: DS: Data Data Completed and Pending Labs on day of discharge: Labs from last 24 hours 12/03/20 12/03/20 05:21 05:21 Hgb 11.4 L Hct 33.9 L Sodium 141 Potassium 3.7 Chloride 106 Carbon Dioxide 30 Anion Gap 5 L BUN 33 H Creatinine 1.10 Estim Creat Clear Calc 55 Estimated GFR > 60 Glucose 91 Calcium 8.8 Preliminary micro results at discharge 12/01/20 09:25 Blood Culture - Preliminary Blood 12/01/20 09:25 Blood Culture - Preliminary Blood Discharge Plan Discharge Attending physician on discharge: Darvin Tabares Discharging Clinician: Cony Lantigua Patient Disposition: Home Health Service Activity: as tolerated Diet: regular Discharge Instructions: -please take your medications as prescribed -follow up with your primary care physician in 1-2 weeks about this stay -worrisome signs and symptoms to come back to the emergency room for: Chest pain, shortness of breath, fevers 100.4 or greater, progressive significant weakness, worsening rash, or any other worrisome symptom -You are on a blood thinner . This will make you bleed easier. If you have a wound or scrape yourself, you will need to hold pressure for a longer period of time. If you fall or hit your head, you will need to seek medical attention right away. Stop and call your doctor if you start to have dark tary stools as this can indicate internal bleeding -if you continue to have frequent rashes, you may consider seeing an federal law clerk for further workup please note, if you feel too weak or unsafe at home you can come back to emergency room or call your primary care physician for rehab/physical therapy placement. Patient Instructions: Antibiotic Form, Apixaban (By mouth), Deep Vein Thrombosis (DC) Stand Alone Forms: General Discharge Information Follow-up/Referrals: Lemuel,Shahid Vasquez MD [Primary Care Provider] - Discharge Medications: New methylprednisolone [Methylpred DP] 4 mg tablets,dose pack See Rx Instructions .ROUTE .COMPLEX Qty: 21 RF: 0 Continued atorvastatin [Lipitor] 40 mg tablet 40 mg PO DAILY RF: 0 carvedilol [Coreg] 3.125 mg tablet 3.125 mg PO BID RF: 0 sertraline [Zoloft] 100 mg tablet 200 mg PO DAILY RF: 0 pantoprazole 40 mg tablet,delayed release (DR/EC) 40 mg PO QAM RF: 0 docusate sodium [Colace] 100 mg capsule 100 mg PO DAILY PRN (Reason: Constipation) RF: 0 donepezil [Aricept] 10 mg tablet 10 mg PO QHS RF: 0 magnesium oxide [MagOx] 400 mg (241.3 mg magnesium) tablet 400 mg PO DAILY RF: 0 furosemide [Lasix] 20 mg tablet 20 mg PO QAM RF: 0 tamsulosin [Flomax] 0.4 mg capsule 0.4 mg PO DAILY RF: 0 Eliquis 5 mg tablet 5 mg PO BID RF: 0 sotalol 80 mg Tablet 80 mg PO HS RF: 0 cyanocobalamin (vitamin B-12) 1,000 mcg Tablet 1,000 mcg PO DAILY RF: 0 aspirin 81 mg Tablet,Delayed Release (Dr/Ec) 81 mg PO QAM Qty: 30 RF: 0 levetiracetam 250 mg Tablet 750 mg PO Q12HR Qty: 60 RF: 0 lorazepam [Ativan] 0.5 mg Tablet 0.5 mg PO HS RF: 0 aripiprazole [Abilify] 5 mg Tablet 5 mg PO HS RF: 0 finasteride 5 mg 5 mg PO DAILY RF: 0 Date of admission: 11/30/20 19:20 Primary Care Provider: Lemuel,Shahid Vasquez Admitting Provider: Juan Jose Temple V. Attending physician on admission: Cony Lantigua Condition: Stable Quality VTE Prophylaxis VTE prophylaxis: mechanical ordered
--- NOTE | 2020-12-03 15:55 | PC.NURSE ---
Attempted to ambulate patient to restroom. Patient unable to ambulate with assistance using cane. Attempted to use katherine stedy with him and he was still unable to get to restroom. It took 3 of us to get patient up with katherine stedy, into restroom and back to bed. Called to speak with daughter Alicia and update her on patient status. Alicia verbalizes understanding that patient is very weak and requiring alot of assistance. At this time, she still wishes to send patient home. However, she is agreeable to transport patient by ambulance.
--- NOTE | 2020-12-03 18:53 | PC.NURSE ---
Daughter was given permission by warehouse insulation worker to come up and evaluate patients mobility in order to establish if he was safe to take home with home health. Daughter at the bedside stated that she did not feel he was safe enough to go home with home health. Daughter, Alicia, couldn't get patient to stand or pivot at the bedside. She now wishes to send him to rehab. Dr. Tabares (covering for hospitalist Cony), was notified and I received orders to cancel the discharge. Care coordination, Dale, was informed of this plan and she was going to look into rehab places in the morning if patient was still here.
[2020-12-03] MEDS: LORazepam (*CRX) 0.5 MG TABLET PO (20:51)
[2020-12-03] MEDS: DONEPEZIL HCL 10 MG TABLET PO (20:51)
[2020-12-03] MEDS: ARIPiprazole 5 MG TABLET PO (20:51)
[2020-12-03] MEDS: SOTALOL HCL 80 MG TABLET PO (20:51)
[2020-12-04] VITALS (10 sets, daily range): BP systolic 108–144; BP diastolic 58–90; PULSE 62–70; RESP 16–18; TEMP 36.1–36.9; O2SAT 96–98
[2020-12-04] MEDS: LORATADINE 10 MG TABLET PO (09:02)
[2020-12-04] MEDS: ASPIRIN 81 MG ENTERIC TABLET PO (09:02)
[2020-12-04] MEDS: SERTRALINE HCL 50 MG TABLET 200 MG PO (09:02)
[2020-12-04] MEDS: ATORVASTATIN 40 MG TABLET PO (09:02)
[2020-12-04] MEDS: levETIRAcetam 250 MG TABLET 750 MG PO ×2 (09:02→20:43)
[2020-12-04] MEDS: FINASTERIDE 5 MG TABLET PO (09:03)
[2020-12-04] MEDS: APIXABAN 5 MG TABLET PO ×2 (09:03→16:54)
[2020-12-04] MEDS: TAMSULOSIN HCL 0.4 MG CAPSULE PO (09:03)
[2020-12-04] MEDS: FUROSEMIDE 20 MG TABLET PO (09:03)
[2020-12-04] MEDS: predniSONE 20 MG TABLET 40 MG PO (09:03)
[2020-12-04] MEDS: CYANOCOBALAMIN 1,000 MCG TABLET 1000 MCG PO (09:04)
[2020-12-04] MEDS: carvediloL 3.125 MG TABLET PO ×2 (09:04→16:54)
[2020-12-04] MEDS: FAMOTIDINE 20 MG/2 ML VIAL IV PUSH ×2 (09:05→20:43)
[2020-12-04] MEDS: PANTOPRAZOLE 40 MG TABLET PO (09:05)
[2020-12-04] MEDS: MAGNESIUM OXIDE 400 MG TABLET PO (09:06)
[2020-12-04 11:08] LABS: Basophils Percent Auto 0.3 % (0.2-1.2); Eosinophils Absolute Auto 0.2 K/mm3 (0-0.3); Eosinophils Percent Auto 2.2 % (0-4.4); Hematocrit 37.5 % (42.0-52.0); Hemoglobin 11.9 g/dL (14.0-18.0); Immature Granulocyte Absolute 0.03 K/mm3 (0.00-0.031); Immature Granulocyte Percent A 0.4 % (0-0.5); Lymphocytes Absolute Auto 1.38 K/mm3 (0.9-3.2); Lymphocytes Percent Auto 20.6 % (18.3-44.2); Mean Corpuscular HGB Conc 31.7 g/dl (32-36); Mean Corpuscular Volume 103.9 fl (80-100); Mean Platelet Volume 10.6 fl (7.4-10.4); Monocytes Absolute Auto 0.6 K/mm3 (0.1-0.6); Monocytes Percent Auto 8.6 % (2.6-8.5); Neutrophils Absolute Auto 4.6 K/mm3 (1.3-6.7); Neutrophils Percent Auto 67.9 % (45.5-73.1); Platelet Count Result 146 k/mm3 (150-375); Red Blood Count 3.61 M/mm3 (4.6-6.20); Red Cell Distribution Width 12.8 % (11.5-14.5); White Blood Count 6.7 K/mm3 (4.5-10.0)
[2020-12-04 11:28] LABS: Anion Gap 6 mmol/L (8-16); Blood Urea Nitrogen 33 mg/dL (9-20); Calcium 8.9 mg/dL (8.4-10.2); Carbon Dioxide 27 mmol/L (22-30); Chloride 106 mmol/L (98-107); Estimated CRCL calculation 60 ml/min; Estimated Glomerular Filt Rate > 60; Glucose 92 mg/dL (65-110); Potassium 3.7 mmol/L (3.4-5.0); Sodium 139 mmol/L (137-145)
[2020-12-04 12:43] LABS: CRP 1.1 mg/dL (<1.0)
--- NOTE | 2020-12-04 14:37 | PCOTNOTE ---
Attempted to see patient, patient going for CT scan. Due to patient transporters requiring assist, this therapist assisted with placing a maxi move sling under patient in order to properly move patient to stretcher.
--- NOTE | 2020-12-04 15:12 | PC.NURSE ---
On 12/04/20, the student, [Ruth Esposito], provided care and completed [facility] documentation on this patient. I have reviewed the student's documentation and agree with the findings.
--- NOTE | 2020-12-04 16:02 | PM.IMPN ---
Progress Note: A&P Assessment and Plan (1) Discharge planning issues: Code(s): Z02.9 - Encounter for administrative examinations, unspecified Status: Acute Assessment and Plan: Pt has been very weak at times. Although he did well with PT, he later had to be ayleen lifted back to bed. Family is unsure if they can take care of him at home. I had a long discussion with calista that he may be bedbound if he goes home if he continues to be weak. We discussed SNF vs home health. He does have 24 hour care there. She came to the hospital to see how he was doing herself and she said he was weaker and she didn't think she could provide for him at home. She also doesn't want SNF. At this time she is going to tour a SNF tomorrow and if she likes it she will discharge him there. [facility] has been to [facility] past and she had a bad experience with it. I did explain to her that nothing is permanent and if she does not do well at SNF after a few weeks she can pull him out. We also discussed hospice which she is not interested in at this time. CC and RN notified. (2) Drug reaction: Code(s): T50.905A - Adverse effect of unspecified drugs, medicaments and biological substances, initial encounter Status: Acute Assessment and Plan: Resolved. Rash and facial swelling could be due to recent antibiotic use with Macrobid although etiology is not entirely clear. Meds have been reviewed. -due to facial swelling 11/30, he was placed on steroids, Benadryl, Pepcid and Claritin. They were weaned and he is on medrol dose pack. -no further abx needed (3) Atrial fibrillation: Code(s): I48.91 - Unspecified atrial fibrillation Status: Acute Assessment and Plan: Continue sotalol, carvdilol, and Eliquis -appeared to be in normal sinus -no signs of HF on exam (4) Chronic ischemic right MCA stroke: Code(s): I69.30 - Unspecified sequelae of cerebral infarction Status: Acute Assessment and Plan: Continue aspirin, eliquis, and statin (5) Dementia: Code(s): F03.90 - Unspecified dementia without behavioral disturbance Status: Acute Assessment and Plan: At baseline -head CT neg for acute pathology -Continue aripiprazole and donepezil (6) HTN (hypertension), benign: Code(s): I10 - Essential (primary) hypertension Status: Acute Assessment and Plan: last bp 108/68 -continue carvdilol and lasix (7) Anxiety: Code(s): F41.9 - Anxiety disorder, unspecified Status: Acute Assessment and Plan: Chronic and stable -continue zoloft and abilify (8) Generalized weakness: Code(s): R53.1 - Weakness Status: Acute Assessment and Plan: see above (9) Left leg DVT: Code(s): I82.402 - Acute embolism and thrombosis of unspecified deep veins of left lower extremity Status: Acute Assessment and Plan: Patient has a history of DVT in the left leg from 2017. New ultrasound shows similar distribution of clot and is likely at least partially chronic. There are no signs of acute DVT such as erythema, pain or warmth. The patient has an IVC filter and is on Eliquis. I do not think that he needs to be transition to warfarin at this time but will monitor. Subjective Date/time seen: 12/04/20 16:02 Interval history: Pt is a 80-year-old male here for rash. Pt was seen today and feeling well. He had no complaints but continues to feel weak. He denies CP, nausea, vomiting, fevers, chills, CP, or SOB. I spoke with daughter calista about plan of care. He had to be ayleen lifted back to bed today and I discussed the possibility of him being bed bound when he goes home due to his weakness. She understands this is a possibility but isn't sure she is ready for that. She is going to tour facilities tomorrow. Of note, she came here 12/03 and tried to see if she could get him out of bed and see how
[2020-12-04] MEDS: SOTALOL HCL 80 MG TABLET PO (20:42)
[2020-12-04] MEDS: LORazepam (*CRX) 0.5 MG TABLET PO (20:42)
[2020-12-04] MEDS: DONEPEZIL HCL 10 MG TABLET PO (20:43)
[2020-12-04] MEDS: ARIPiprazole 5 MG TABLET PO (20:43)
[2020-12-05 06:00] VITALS: BP 140/77; PULSE 70; RESP 18; TEMP 36; O2SAT 96
[2020-12-05] MEDS: methylPREDNISolone (MEDROL) DOSEPACK 4 MG TABLETS PO ×3 (06:23→17:28)
[2020-12-05] MEDS: ASPIRIN 81 MG ENTERIC TABLET PO (08:55)
[2020-12-05] MEDS: levETIRAcetam 250 MG TABLET 750 MG PO (08:55)
[2020-12-05] MEDS: PANTOPRAZOLE 40 MG TABLET PO (08:55)
[2020-12-05] MEDS: FUROSEMIDE 20 MG TABLET PO (08:56)
[2020-12-05] MEDS: FAMOTIDINE 20 MG/2 ML VIAL IV PUSH (08:56)
[2020-12-05] MEDS: ATORVASTATIN 40 MG TABLET PO (08:56)
[2020-12-05] MEDS: CYANOCOBALAMIN 1,000 MCG TABLET 1000 MCG PO (08:56)
[2020-12-05] MEDS: SERTRALINE HCL 50 MG TABLET 200 MG PO (08:56)
[2020-12-05 08:57] VITALS: PULSE 78
[2020-12-05] MEDS: APIXABAN 5 MG TABLET PO ×2 (08:57→17:29)
[2020-12-05] MEDS: carvediloL 3.125 MG TABLET PO ×2 (08:57→17:29)
[2020-12-05 08:59] VITALS: RESP 18; O2SAT 96
[2020-12-05] MEDS: FINASTERIDE 5 MG TABLET PO (08:59)
[2020-12-05] MEDS: LORATADINE 10 MG TABLET PO (08:59)
[2020-12-05] MEDS: MAGNESIUM OXIDE 400 MG TABLET PO (08:59)
[2020-12-05] MEDS: TAMSULOSIN HCL 0.4 MG CAPSULE PO (08:59)
[2020-12-05 14:00] VITALS: BP 120/80; PULSE 70; RESP 18; TEMP 36.1; O2SAT 100
--- NOTE | 2020-12-05 15:34 | PCPTNOTE ---
Patient's POC frequency increased from 2-3days/wk to 5-7days/wk due to significant improvement in functional independence and would benefit from increased intensity of therapy in order to promote further return to baseline function.
[2020-12-05 15:40] LABS: EDCOVIDSCREEN Negative (Negative)
--- NOTE | 2020-12-05 15:43 | PM.DS ---
DS: Admitting Diagnosis Discharge Date 12/05/2020 Admitting Diagnosis Drug reaction DS: Discharge Diagnosis Discharge Diagnosis (1) Discharge planning issues: Code(s): Z02.9 - Encounter for administrative examinations, unspecified Status: Acute Assessment and Plan: Pt has been very weak at times Family is unsure if they can take care of him at home. SNF at d/c (2) Drug reaction: Code(s): T50.905A - Adverse effect of unspecified drugs, medicaments and biological substances, initial encounter Status: Acute Assessment and Plan: Resolved Rash and facial swelling could be due to recent antibiotic use with Macrobid although etiology is not entirely clear Due to facial swelling 11/30, he was placed on steroids, Benadryl, Pepcid and Claritin They were weaned and he is on medrol dose pack No further abx needed (3) Atrial fibrillation: Code(s): I48.91 - Unspecified atrial fibrillation Status: Acute Assessment and Plan: Continue sotalol, carvdilol, and Eliquis (4) Chronic ischemic right MCA stroke: Code(s): I69.30 - Unspecified sequelae of cerebral infarction Status: Acute Assessment and Plan: Continue aspirin, eliquis, and statin (5) Dementia: Code(s): F03.90 - Unspecified dementia without behavioral disturbance Status: Acute Assessment and Plan: At baseline Head CT neg for acute pathology Continue aripiprazole and donepezil (6) HTN (hypertension), benign: Code(s): I10 - Essential (primary) hypertension Status: Acute Assessment and Plan: Stable Continue carvedilol and Lasix (7) Anxiety: Code(s): F41.9 - Anxiety disorder, unspecified Status: Acute Assessment and Plan: Chronic and stable Continue Zoloft and Abilify (8) Generalized weakness: Code(s): R53.1 - Weakness Status: Acute Assessment and Plan: see above (9) Left leg DVT: Code(s): I82.402 - Acute embolism and thrombosis of unspecified deep veins of left lower extremity Status: Acute Assessment and Plan: Patient has a history of DVT in the left leg from 2017 New ultrasound shows similar distribution of clot and is likely at least partially chronic There are no signs of acute DVT such as erythema, pain or warmth The patient has an IVC filter and is on Eliquis I do not think that he needs to be transition to warfarin at this time but will monitor DS: Summary Hospital Course Hospital Course: 80-year-old male with past medical history significant for old stroke, right-sided hemiparesis, dementia, hypertension, benign prostatic hyperplasia, atrial fibrillation rate controlled anticoagulated. Patient just concluded a nitrofurantoin course was brought to the emergency room due to rash that appear diffusely localized macular papular erythematous. No fevers, no rigors, no chills ,no nausea ,no vomiting ,no diarrhea, no abdominal pain, no shortness of breath ,no cough ,no sputum production, no chest pain, no PND, no orthopnea. Preliminary workup has been essentially nonrevealing. Patient has been placed for observation for further treatment management and evaluation. The patient is hemodynamically stable and will discharge to SNF. He will follow up with his PCP after discharge. Time Spent with Patient Time attestation: Total time spent providing and/or coordinating discharge services: Time spent: Greater than 30 minutes Exam Const: General: no acute distress, alert and awake Resp: Effort & Inspection: normal respiratory effort Auscultation: clear to auscultation bilaterally Cardio: Rate: regular rate Rhythm: regular rhythm Heart sounds: S1 normal heart sound present and S2 normal heart sound present GI: GI Palp: Yes Soft to palpation Percussion: Yes normal to percussion Auscultation: normal bowel sounds : General: Yes no CVA tenderness Skin: General skin exam: normal color Rashes: no
[2020-12-05 17:29] VITALS: PULSE 72
--- NOTE | 2020-12-07 06:54 | PC.NURSE ---
Blood cx are negative.
== END 2020-12-05 19:00 | DRG 607 ==
LOC: ANHED 21:24 → ANH2MED 23:47
PROVIDERS: Physician Assistant; Admitting Provider Internal Medicine; Emergency Provider Emergency Medicine; PCP Internal Medicine; Visit Provider Nurse Practitioner Adult Health
DX: L27.0 Generalized skin eruption due to drugs and medicaments taken internally (principal); I69.351 Hemiplegia and hemiparesis following cerebral infarction affecting right dominant side; I67.82 Cerebral ischemia; I82.402 Acute embolism and thrombosis of unspecified deep veins of left lower extremity; R22.0 Localized swelling, mass and lump, head; T37.8X5A Adverse effect of other specified systemic anti-infectives and antiparasitics, initial encounter; Z20.822 Contact with and (suspected) exposure to COVID-19; I69.398 Other sequelae of cerebral infarction; I69.391 Dysphagia following cerebral infarction; R13.10 Dysphagia, unspecified; F03.90 Unspecified dementia, unspecified severity, without behavioral disturbance, psychotic disturbance, mood disturbance, and anxiety; R53.1 Weakness; I10 Essential (primary) hypertension; I48.91 Unspecified atrial fibrillation; N40.0 Benign prostatic hyperplasia without lower urinary tract symptoms; F41.9 Anxiety disorder, unspecified; Z23 Encounter for immunization; Z79.01 Long term (current) use of anticoagulants; Z79.82 Long term (current) use of aspirin; Z79.899 Other long term (current) drug therapy; Z86.718 Personal history of other venous thrombosis and embolism; Z95.0 Presence of cardiac pacemaker; Z95.828 Presence of other vascular implants and grafts
CPT/HCPCS: 36415; 70450; 71045; 71046; 80048; 81003; 85014; 85018; 85025; 85055; 86140; 87040; 87081; 87426; 87880; 90471; 90653; 93971; 96365; 96366; 96375; 97110; 97116; 97163; 97166; 97530; 97535; 99285; A9270; C9803; G0008; G0378; J0690; J1200; J2930; J7512

== ENCOUNTER 2021-04-08 12:54 | Inpatient (IN) | payer MEDICARE, OTHER, SELFPAY ==
[2021-04-08] VITALS (18 sets, daily range): BP systolic 101–141; BP diastolic 65–79; PULSE 70–243; RESP 14–20; TEMP 35.9–36.6; O2SAT 97–100; BMI 32.3; BMI 32.2
--- NOTE | ~2021-04-08 | XR_ITS ---
XR chest 1V 04/08/2021 14:08 Indication: Syncope Procedure: AP portable chest Comparison: 12/04/2020 Findings: Borderline heart size. Pacemaker leads in expected position. No focal air space disease, pu lmonary edema, pleural effusion or suspected pneumothorax. Impression: 1: No acute cardiopulmonary disease. Reviewed, dictated and finalized at location B. NO FLOOR RUNNER Impression: 1: No acute cardiopulmonary disease.
--- NOTE | ~2021-04-08 | CT_ITS ---
EXAMINATION: CT brain wo con DATE: 04/08/2021 13:59 INDICATION: Syncope TECHNIQUE: Computed tomography (CT) of the head was performed without intravenous contrast. Sagittal and coronal reconstructions were performed. The mA was adjusted according to patient size. Iterative reconstruction technique was employed. The dose-length product was 681.00 mGy-cm. COMPARISON: head CT dated 12/02/2020 FINDINGS: And seen is a large region of encephalomalacia in the right frontal, parietal and temporal lobes cons istent with chronic infarct involving the vascular distribution of the right middle cerebral artery. Additional unchanged small old infarct in the left occipital lobe. No acute intracranial hemorrhage, acute infarction or abnormal extra axial fluid collection. Ventricles are normal and symmetric. No ma ss/mass effect. Mild mucosal thickening the bilateral ethmoid and maxillary sinuses. The orbits and m astoid air cells are normal. Intracranial calcified cerebral atherosclerosis is noted at the bilatera l carotid siphons. IMPRESSION: 1. No acute intracranial process. 2. Unchanged large old infarct involving the right frontal, temporal and parietal lobes in the right middle cerebral artery vascular distribution and small old infarct in the left occipital lobe. Reviewed, dictated and finalized at location A. ALION CHIEF IMPRESSION: 1. No acute intracranial process. 2. Unchanged large old infarct involving the right frontal, temporal and pariet al lobes in the right middle cerebral artery vascular distribution and small ol d infarct in the left occipital lobe.
--- NOTE | ~2021-04-08 | XR_ITS ---
EXAMINATION: XR shoulder LT min 2V DATE: 04/08/2021 14:08 INDICATION: Left shoulder pain TECHNIQUE: AP internally and externally rotated, AP oblique externally rotated and transscapular Y vi ews of the left shoulder were obtained. COMPARISON: Left humerus radiographs dated 08/12/2016 FINDINGS: Normal alignment. No fracture. Minimal left glenohumeral osteoarthritis. Mild left acromioclavicular osteoarthritis. Chronic opacities at the left lung base consistent with atelectasis along side a lef t paracardial fat pad. Calcified right hilar lymph nodes consistent with old granulomatous disease. D ual lead pacemaker seen with leads projecting over the expected locations of the right atrium and rig ht ventricular outflow tract. Moderate thoracic spondylosis. Soft tissues are unremarkable. IMPRESSION: Mild left acromioclavicular and minimal minimal osteoporosis. No acute osseous abnormality. Reviewed, dictated and finalized at location A. HASING ANALYST
--- NOTE | ~2021-04-08 | CT_ITS ---
EXAMINATION: CT cervical spine wo con DATE: 04/08/2021 14:00 INDICATION: Syncopal episode with fall TECHNIQUE: Computed tomography (CT) of the cervical spine was performed without intravenous contrast. Automated exposure control and iterative reconstruction technique were employed. The dose-length pro duct was 569.01 mGy-cm. COMPARISON: None FINDINGS: Normal alignment. Vertebral body heights are normal. No fracture. Severe osteoarthritis at the atlant oaxial articulation. Severe disc height loss at C3-C4 through C6-C7. Mild disc height loss at C2-C3 a nd at the visualized levels of the upper thoracic spine. Multilevel moderate to severe cervical facet osteoarthritis with fusion across the left C3-C4 facet joint. There is moderate neural foraminal romaine nosis on the left at C3-C4 and mild neural foraminal stenosis at the remaining levels of the cervical spinal both the left and right. No significant central canal stenosis. Cervical soft tissues are unr emarkable. Visualized airway and apices of lungs are clear. Partially visualized cardiac pacemaker le ads extending along the left subclavian and brachiocephalic veins. IMPRESSION: 1. Severe cervical spondylosis. No acute osseous abnormality. Reviewed, dictated and finalized at location A. ROPE SALES REPRESENTATIVE
--- NOTE | ~2021-04-08 | XR_ITS ---
XR hip LT 2V w AP pelvis 04/08/2021 14:08 Indication: Status post fall. Left hip pain. Procedure: AP pelvis and 2 views left hip Comparison: 08/12/2013 Findings: No acute fracture or traumatic malalignment. Mild osteoarthritis of the left hip. IVC filte r partially visualized. Sacral foramen are symmetric. Impression: 1: No acute fracture. Reviewed, dictated and finalized at location B. FACTURING WEAVER Impression: 1: No acute fracture.
--- NOTE | 2021-04-08 13:00 | ECG_ITS ---
Measurements Intervals Gill Rate: 70 P: 258 WY: 179 QRS: 1 QRSD: 96 T: 22 QT: 415 QTc: 448 Interpretive Statements ELECTRONIC ATRIAL PACEMAKER EARLY PRECORDIAL R/S TRANSITION BORDERLINE T WAVE ABNORMALITY- INFERIOR LEADS BASELINE ARTIFACT- II, III, AVR, AVL, AVF, V1 BORDERLINE ECG Electronically Signed On 04-08-2021 13:14:30 LEAD MINER by Alok Mackey D.O.
[2021-04-08 13:31] LABS: Basophils Percent Auto 0.7 % (0.2-1.2); Eosinophils Absolute Auto 0.1 K/mm3 (0-0.3); Eosinophils Percent Auto 1.9 % (0-4.4); Hematocrit 35.3 % (42.0-52.0); Hemoglobin 11.3 g/dL (14.0-18.0); Immature Granulocyte Absolute 0.02 K/mm3 (0.00-0.031); Immature Granulocyte Percent A 0.3 % (0-0.5); Lymphocytes Absolute Auto 1.25 K/mm3 (0.9-3.2); Lymphocytes Percent Auto 21.5 % (18.3-44.2); Mean Corpuscular Volume 96.7 fl (80-100); Mean Platelet Volume 10.4 fl (7.4-10.4); Monocytes Absolute Auto 0.4 K/mm3 (0.1-0.6); Monocytes Percent Auto 6.7 % (2.6-8.5); Neutrophils Percent Auto 68.9 % (45.5-73.1); Platelet Count Result 144 k/mm3 (150-375); Red Blood Count 3.65 M/mm3 (4.6-6.20); Red Cell Distribution Width 13.5 % (11.5-14.5); White Blood Count 5.8 K/mm3 (4.5-10.0)
[2021-04-08 13:32] LABS: Alanine Aminotransferase 30 U/L (4-50); Albumin Level 4.3 g/dL (3.5-5.1); Alkaline Phosphatase 77 U/L (38-126); Anion Gap 9 mmol/L (8-16); Aspartate Amino Transferase 37 U/L (17-59); Bilirubin,Total 0.3 mg/dL (0.2-1.3); Blood Urea Nitrogen 34 mg/dL (9-20); Calcium 9.3 mg/dL (8.4-10.2); Carbon Dioxide 27 mmol/L (22-30); Chloride 106 mmol/L (98-107); Estimated Glomerular Filt Rate 48; Glucose 88 mg/dL (65-110); Potassium 4.5 mmol/L (3.4-5.0); Sodium 142 mmol/L (137-145)
--- NOTE | 2021-04-08 13:39 | ED.SYNCOPE ---
HPI - Syncope General Chief Complaint: Syncope Stated Complaint: neuro symptoms Time Seen by Provider: 04/08/21 13:02 Source: patient, EMS and RN notes reviewed Mode of arrival: EMS Limitations: dementia History of Present Illness HPI narrative: This is an 81 year old male with history of CVA with residual left facial droop and left hemiparesis who presents for evaluation of possible syncope. EMS reported that 911 was called because patient was unresponsive but breathing. Patient may have became unresponsive while having bowel movement but it is unclear. Patient states he fell while going to bathroom but he is unsure why he fell. He denies straining while having bowel movement. He reports nausea but denies abdominal pain or diarrhea. He thinks he may have hit his head. He denies chest pain or cough. He states he was short of breath but that he has calmed down so it has resolved. He is reporting left arm pain with some movement and he has abrasion to left shoulder. Related Data Home Medications Medication Instructions Recorded Confirmed Eliquis 5 mg PO BID 07/30/20 04/08/21 atorvastatin 40 mg tablet 40 mg PO DAILY 07/30/20 04/08/21 carvedilol 3.125 mg tablet 3.125 mg PO BID tablet 07/30/20 04/08/21 cyanocobalamin (vitamin B-12) 1,000 mcg PO DAILY 07/30/20 04/08/21 docusate sodium 100 mg capsule 100 mg PO DAILY PRN 07/30/20 04/08/21 magnesium oxide 400 mg (241.3 mg 400 mg PO DAILY 07/30/20 04/08/21 magnesium) tablet sertraline 100 mg tablet 200 mg PO DAILY 07/30/20 04/08/21 sotalol 80 mg PO HS 07/30/20 04/08/21 tamsulosin 0.4 mg capsule 0.4 mg PO HS 07/30/20 04/08/21 furosemide 40 mg tablet 40 mg PO DAILY tablet 04/02/21 04/08/21 Allergies Allergy/AdvReac Type Severity Reaction Status Date / Time nitrofurantoin Allergy Severe significant Verified 04/08/21 22:11 [From Macrobid] rash causing hospitalization Review of Systems Review of Systems: All systems reviewed & are unremarkable except as noted in HPI and below Constitutional: Constitutional: Denies chills and Denies fever(s) Cardiovascular: Cardiovascular: Denies chest pain and Denies radiating jaw, neck or arm pain PMFSH Past Medical History Medical History BPH (benign prostatic hyperplasia) Chronic ischemic right MCA stroke Colon polyps Dementia Pacemaker Paralysis of left upper extremity Surgical History Surgical History S/P ablation of atrial fibrillation Family History Family History Father Mother Other No significant family history Social History Social History Smoking status: Never smoker Alcohol intake: never Substance use: never Gender identity (if verbalized by the patient): Male Spiritual care concerns: No Exam Const: General: alert Other: oriented to person and place. He knows date of but states he does not know his age HENMT: Head: normocephalic and atraumatic Face and sinus: face symmetric Mouth: Yes Normal oral and palatal mucosa present, Yes lip normal, Yes oropharynx normal and Yes moist mucous membranes Eyes: EOM: EOMs intact bilaterally Chest: Chest palpation & inspection: normal inspection of the chest Resp: Effort & Inspection: normal respiratory effort and no retractions Auscultation: clear to auscultation bilaterally Cardio: Rate: regular rate Rhythm: regular rhythm GI: GI Palp: Yes Soft to palpation, No Tenderness to palpation present (GI), No Guarding due to palpation present (GI) and No Rigid due to palpation Neuro: General: moves all extremities Other: left side weakness but has proximal movement to left arm and leg Extrem: General: edema bilateral (lower extremity worse on left) Psych: Mental Status: mental status grossly normal Affect: nor
--- NOTE | 2021-04-08 14:11 | PC.NURSE ---
Called lab and spoke to Black to add on trop Baseline, MG, BNP, PTT/INR, PTT
[2021-04-08 14:25] LABS: INR 1.1; Prothrombin Time 13.9 Seconds (11.1-14.7)
[2021-04-08 14:53] LABS: Magnesium 2.4 mg/dL (1.6-2.3)
[2021-04-08 15:00] LABS: Troponin I < 0.012 ng/mL (0.000-0.034)
[2021-04-08 15:03] LABS: NT Pro B Type Natriuretic Pept 393 pg/mL (5-100)
--- NOTE | 2021-04-08 17:30 | PM.IMHP ---
H&P: HPI History of Present Illness Date/Time: 04/08/21 17:30 Chief Complaint: Unresponsive episode. Narrative: This is a very pleasant 81-year-old male with history of stroke and residual left hemiparesis, dementia, seizures, atrial fibrillation, DVT, prostate cancer,, and other comorbidities who presented to the emergency department via EMS for evaluation of an unresponsive episode. He has a pretty good historian but his daughter provides additional history, with the patient's permission. The patient lives in his own home but has caretakers 24 hours a day. His daughter was with him this morning and he seemed to be in his usual state of health. Not long prior to arrival she helped him get to the bathroom and left him to use the restroom. After a few minutes she heard what sounded like patient falling to the floor and when she entered the bathroom he was unresponsive and seemed to be slumped against the wall. There was no report of seizure activity or bowel or bladder incontinence and when he came to he was at his baseline. He does have occasional issues with constipation but does not believe that he straining to have a bowel movement. He believes he may have bumped his head but he is not certain. He sustained a skin tear on his right hand and is complaining of some mild discomfort in his left shoulder though he has no other complaints. He does not recall feeling lightheaded, dizzy, nauseated, or diaphoretic while on the toilet. He also denies chest pain, pleuritic pain, palpitations, and shortness of breath. Review of Systems Review of Systems: Twelve systems were reviewed. Patient ambulates with a long quad cane for short distances around the home. He also has an electric scooter for longer distances. He has residual left-sided weakness from a previous stroke. No recent cold or flu symptoms. No sick contacts. Except as documented, all other systems were reviewed and are negative. [facility] Past Medical History Medical History (Updated 04/08/21 @ 22:53 by Ana Marcos PA-C) Atrial fibrillation Benign prostatic hyperplasia Chronic anemia Chronic anticoagulation 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 Chronic kidney disease, stage 3 Colon polyps Deep venous thrombosis Dementia Gastrointestinal ulcer Pacemaker Prostate cancer Seizures Surgical History Surgical History (Updated 04/08/21 @ 22:48 by Ana Marcos PA-C) History of cardiac pacemaker History of colonoscopy with polypectomy History of prostatectomy Status post ablation of atrial fibrillation Family History Family History Father Mother Other No significant family history Social History Social History (Updated 04/08/21 @ 22:49 by Ana Marcos PA-C) Social History: Healthcare power of criminal defense attorney: Alicia Damon, daughter. Code status: Full code. Smoking status: Never smoker Alcohol intake: never Substance use: never Additional living arrangements comments: The patient lives in his own home. He has 24 hour caretakers. Additional occupation/education comments: Retired. Meds Home Medications and Allergies Home Medications Medication Instructions Recorded Confirmed Type Eliquis 5 mg PO BID 07/30/20 04/08/21 History atorvastatin 40 mg tablet 40 mg PO DAILY 07/30/20 04/08/21 History carvedilol 3.125 mg tablet 3.125 mg PO BID tablet 07/30/20 04/08/21 History cyanocobalamin (vitamin B-12) 1,000 mcg PO DAILY 07/30/20 04/08/21 History docusate sodium 100 mg capsule 100 mg PO DAILY PRN 07/30/20 04/08/21 History magnesium oxide 400 mg (241.3 mg 400 mg PO DAILY 07/30/20 04/08/21 History magnesium) tablet sertraline 100 mg tablet 200 mg PO DAILY 07/30/20 04/08/21 History sotalol 80 mg PO HS 07/30/20 04/08/21 History tamsulosin 0.4 mg capsule 0.4 mg PO HS 07/30/20 04/08/21 History lorazepam [Ativan] 0.5 mg PO HS #10 tablet 12/05/2003/20
--- NOTE | 2021-04-08 18:06 | ADMGEN ---
This patient, Rony Rock, was admitted to Medical Room 346-01. Patient/family oriented to hospital policies and general routines including ID bracelet, bed and alarms, visiting hours, pain management, procedures, bathroom and other care routines, personal items, smoking policy, room service/diet, and visiting hours. Information on how to activate the Rapid Response Team has been discussed. Patient/Family are encouraged to report perceived risks to care and to ask questions if they do not understand what they are told or what they should do.
--- NOTE | 2021-04-08 23:08 | PC.NURSE ---
Patient's heart rate jumped to 183 for a few seconds but then came back down to 70. Upon checking on patient he denied chest pain or chest discomfort but did report that he sneezed twice.
[2021-04-08] MEDS: levETIRAcetam 500 MG TABLET PO (23:41)
--- NOTE | 2021-04-08 23:55 | PC.NURSE ---
Patient heart rate went to 243 on the monitor. He denies chest pain or discomfort but states he did sneeze once. Heart rate returned to 70.
[2021-04-09] VITALS (16 sets, daily range): BP systolic 100–127; BP diastolic 55–72; PULSE 69–71; RESP 16–17; TEMP 36.2–37; O2SAT 93–98; BMI 10.0
[2021-04-09 05:40] LABS: Basophils Percent Auto 0.6 % (0.2-1.2); Eosinophils Absolute Auto 0.2 K/mm3 (0-0.3); Eosinophils Percent Auto 2.4 % (0-4.4); Hematocrit 36.4 % (42.0-52.0); Hemoglobin 11.7 g/dL (14.0-18.0); Immature Granulocyte Absolute 0.02 K/mm3 (0.00-0.031); Immature Granulocyte Percent A 0.3 % (0-0.5); Immature Platelet Fraction Pct 3.8 % (0.9-11.2); Lymphocytes Percent Auto 28.5 % (18.3-44.2); Mean Corpuscular HGB Conc 32.1 g/dl (32-36); Mean Corpuscular Hemoglobin 31.7 pg (26-34); Mean Corpuscular Volume 98.6 fl (80-100); Mean Platelet Volume 10.2 fl (7.4-10.4); Monocytes Absolute Auto 0.5 K/mm3 (0.1-0.6); Monocytes Percent Auto 8.5 % (2.6-8.5); Neutrophils Absolute Auto 3.8 K/mm3 (1.3-6.7); Neutrophils Percent Auto 59.7 % (45.5-73.1); Platelet Count Result 153 k/mm3 (150-375); Red Blood Count 3.69 M/mm3 (4.6-6.20); Red Cell Distribution Width 13.5 % (11.5-14.5); White Blood Count 6.3 K/mm3 (4.5-10.0)
[2021-04-09 05:51] LABS: Alanine Aminotransferase 26 U/L (4-50); Albumin Level 4.2 g/dL (3.5-5.1); Alkaline Phosphatase 81 U/L (38-126); Anion Gap 6 mmol/L (8-16); Aspartate Amino Transferase 32 U/L (17-59); Bilirubin,Total 0.4 mg/dL (0.2-1.3); Blood Urea Nitrogen 29 mg/dL (9-20); Calcium 9.2 mg/dL (8.4-10.2); Carbon Dioxide 26 mmol/L (22-30); Chloride 107 mmol/L (98-107); Estimated CRCL calculation 52 ml/min; Estimated Glomerular Filt Rate 58; Glucose 95 mg/dL (65-110); Magnesium 2.5 mg/dL (1.6-2.3); Potassium 4.3 mmol/L (3.4-5.0); Sodium 139 mmol/L (137-145)
[2021-04-09 06:48] LABS: Free T4 Free Thyroxine Reflex 0.86 ng/dL (0.78-2.19)
[2021-04-09 08:03] LABS: Total Triiodothyronine (T3) 1.05 NG/ML (0.97-1.69)
[2021-04-09] MEDS: ATORVASTATIN 40 MG TABLET PO (08:34)
[2021-04-09] MEDS: SERTRALINE HCL 50 MG TABLET 200 MG PO (08:34)
[2021-04-09] MEDS: APIXABAN 5 MG TABLET PO ×2 (08:34→18:39)
[2021-04-09] MEDS: MAGNESIUM OXIDE 400 MG TABLET PO (08:34)
[2021-04-09] MEDS: CYANOCOBALAMIN 1,000 MCG TABLET 1000 MCG PO (08:35)
[2021-04-09] MEDS: FUROSEMIDE 40 MG TABLET PO (08:35)
[2021-04-09] MEDS: levETIRAcetam 500 MG TABLET PO ×2 (08:35→20:20)
[2021-04-09] MEDS: carvediloL 3.125 MG TABLET PO ×2 (08:35→18:39)
--- NOTE | 2021-04-09 13:11 | PM.IMPN ---
Progress Note: A&P Assessment and Plan (1) Syncope and collapse: Code(s): R55 - Syncope and collapse Status: Acute Assessment and Plan: Patient may have had a vasovagal syncope as he was on the toilet though it seems he had finished using the restroom per the daughter's report. Pacemaker Interrogation showed no acute arrhythmia He also has a history of seizures. Patient's daughter states he recently saw his neurologist and was going to be decreasing his Keppra level. The patient has not started the decrease in dose since she had just picked it up from the pharmacy. Patient himself tells me that he believed that he had a seizure because when he woke up on the ground it took him a little while to become oriented and his eyes were fixated on a bottle of soap which usually happens. When I talked to the patient's daughter she states this year she has had the past his postictal phase has been about an hour and has had extremity tremors with a seizure activity. With this fall she did not notice any of the tremors and he was alert oriented by the time EMS arrived within 10 minutes. Patient also tells me that he did not sleep at all the night before his fall and that his left side was feeling little bit weaker when he woke up that morning. Patient's daughter states he only sleeps about 3 hours per night and this is not uncommon for him. I suppose he may have fallen, hit his head, and was knocked unconsciousness from that though there is no obvious gross evidence to suggest head trauma. Telemetry shows no acute arrhythmias at this time. He is feeling well at this time. He worked with physical and occupational therapy and they had concerns with his weakness and being at a mod assist. His daughter is going to bring up the patient's 4 prong cane so we can get a better evaluation with how he does with that. If he does well then he can be discharged home where he has caregivers and his daughter checking in on him. The patient does not do well with therapy then will have to keep him overnight and finger at other options Continue monitoring (2) Chronic kidney disease, stage 3: Code(s): N18.30 - Chronic kidney disease, stage 3 unspecified Status: Acute Assessment and Plan: Patient's creatinine is slightly higher than his baseline. But it seems his baseline has fluctuated over the years to 1-1.4. Repeat creatinine this was 1.2. Patient states he has been eating and drinking like normal. Patient's daughter also says he is always a great eater and drinker without any recent decline. (3) Chronic anemia: Code(s): D64.9 - Anemia, unspecified Status: Acute Assessment and Plan: Hemoglobin and hematocrit are stable on review of previous labs. (4) Seizures: Code(s): R56.9 - Unspecified convulsions Status: Acute Assessment and Plan: Continue levetiracetam. (5) Atrial fibrillation: Code(s): I48.91 - Unspecified atrial fibrillation Status: Acute Assessment and Plan: Status post cardiac ablation and pacemaker insertion. Continue sotalol and carvedilol. (6) Chronic anticoagulation: Code(s): Z79.01 - joint terminal attack controller (current) use of anticoagulants Status: Acute Assessment and Plan: Resume Eliquis Time Spent With Patient Time with patient: 25 - 35 minutes Subjective Date/time seen: 04/09/21 13:11 Interval history: Date of service 04/09/2021: Patient states he is feeling well today without any concerns or issues. He does not report any pain after his fall. No headaches, lightheadedness, dizziness today. He has not had any recent cold or flu symptoms. He denies any fevers, chills, chest pain, shortness breast, palpitations, cough, nausea, vomiting, abdominal pain, diarrhea, constipation, leg swelling, calf pain, dysuria, frequent urination, pain with urination, urinary retention, or any other symptoms at this time. Review of S
[2021-04-09 14:48] LABS: Add Urine Microscopic? NO; Appearance Urine Clear (Clear); Bilirubin Urine Negative (Negative); Blood Urine Negative (Negative); Color Urine Straw (Yellow); Glucose Urine UA Negative (Negative); Ketones Urine Negative (Negative); Leukocyte Esterase Ur Negative LEU/UL (Negative); Nitrate Urine Negative (Negative); Protein Urine Negative (Negative); Urobilinogen Urine Negative mg/dL (<2.0)
[2021-04-09] MEDS: TAMSULOSIN HCL 0.4 MG CAPSULE PO (20:21)
[2021-04-09] MEDS: SOTALOL HCL 80 MG TABLET PO (20:21)
[2021-04-09] MEDS: risperiDONE 0.25 MG TABLET 0.5 MG PO (20:22)
[2021-04-09] MEDS: LORazepam (*CRX) 0.5 MG TABLET PO (20:23)
[2021-04-10] VITALS (15 sets, daily range): BP systolic 100–132; BP diastolic 52–90; PULSE 69–72; RESP 16–20; TEMP 36.3–36.7; O2SAT 95–100
[2021-04-10 05:48] LABS: Hematocrit 37.7 % (42.0-52.0); Hemoglobin 12.2 g/dL (14.0-18.0); Mean Corpuscular HGB Conc 32.4 g/dl (32-36); Mean Corpuscular Hemoglobin 31.9 pg (26-34); Mean Corpuscular Volume 98.7 fl (80-100); Mean Platelet Volume 10.1 fl (7.4-10.4); Platelet Count Result 142 k/mm3 (150-375); Red Blood Count 3.82 M/mm3 (4.6-6.20); Red Cell Distribution Width 13.3 % (11.5-14.5); White Blood Count 6.5 K/mm3 (4.5-10.0)
[2021-04-10 06:04] LABS: Anion Gap 4 mmol/L (8-16); Blood Urea Nitrogen 27 mg/dL (9-20); Calcium 9.2 mg/dL (8.4-10.2); Carbon Dioxide 30 mmol/L (22-30); Chloride 107 mmol/L (98-107); Estimated CRCL calculation 48 ml/min; Estimated Glomerular Filt Rate 53; Glucose 105 mg/dL (65-110); Potassium 4.4 mmol/L (3.4-5.0); Sodium 141 mmol/L (137-145)
[2021-04-10] MEDS: SERTRALINE HCL 50 MG TABLET 200 MG PO (08:21)
[2021-04-10] MEDS: carvediloL 3.125 MG TABLET PO ×2 (08:21→17:31)
[2021-04-10] MEDS: levETIRAcetam 500 MG TABLET PO ×2 (08:22→20:30)
[2021-04-10] MEDS: APIXABAN 5 MG TABLET PO ×2 (08:22→17:31)
[2021-04-10] MEDS: CYANOCOBALAMIN 1,000 MCG TABLET 1000 MCG PO (08:22)
[2021-04-10] MEDS: ATORVASTATIN 40 MG TABLET PO (08:22)
[2021-04-10] MEDS: MAGNESIUM OXIDE 400 MG TABLET PO (08:22)
[2021-04-10] MEDS: FUROSEMIDE 40 MG TABLET PO (08:22)
--- NOTE | 2021-04-10 13:47 | PM.IMPN ---
Progress Note: A&P Assessment and Plan (1) Abnormality of gait and mobility: Onset Date: ~04/10/21 Code(s): R26.9 - Unspecified abnormalities of gait and mobility Status: Acute Assessment and Plan: - Pt. to need arrangement for rehab for discharge for continued Physical therapy. Care Coordination order placed. (2) Subclinical hypothyroidism: Onset Date: ~04/10/21 Code(s): E03.8 - Other specified hypothyroidism Status: Acute Assessment and Plan: - TSH of 8.430 with normal T4. - Will have patient follow up with PCP upon discharge for further surveillance. Additional Plan Assessment and Plan (1) Syncope and collapse: Code(s): R55 - Syncope and collapse Status: Acute Assessment and Plan: - Normal interrogation of Pacer - No seizure activity noted. - Keppra 500 mg BID. - Pt. will need rehab placement as noted per PT suggestion. - Care management ordered for assistance with placement. - Telemetry is stable. - Continue monitoring. (2) Chronic kidney disease, stage 3: Code(s): N18.30 - Chronic kidney disease, stage 3 unspecified Status: Acute Assessment and Plan: - Pt's renal function is at baseline at a creatinine of 1.30, BUN of27 and a GFR of 53. - Will monitor with tomorrow's labs. (3) Chronic anemia: Code(s): D64.9 - Anemia, unspecified Status: Acute Assessment and Plan: - Hemoglobin and hematocrit are stable on review of previous labs. (4) Seizures: Code(s): R56.9 - Unspecified convulsions Status: Acute Assessment and Plan: - Continue levetiracetam at 500 mg (5) Atrial fibrillation: Code(s): I48.91 - Unspecified atrial fibrillation Status: Acute Assessment and Plan: - Status post cardiac ablation and pacemaker insertion. Continue sotalol and carvedilol. (6) Chronic anticoagulation: Code(s): Z79.01 - exterminator helper (current) use of anticoagulants Status: Acute Assessment and Plan: - Resume Eliquis Subjective Date/time seen: 04/10/21 1100 This pt. is examined at the bedside in interval assessment. He is tired but arouses easily. He denies any current complaints of pain or dyspnea, but does endorse that he is weak. He was evaluated by PT who recommends Rehab upon discharge. Case management will be notified to assist with placement. The pt's daughter was at the bedside and voiced concern about his level of weakness. Reassurance was given that he was just waking up, and that all of his imaging has been without any new acute findings. In addition, he was given Ativan in conjunction with his Risperdal, and that may have had an additive affect, but the patient does wake up and answer questions appropriately and is able to coordinate a straw in a cup to his mouth. He himself has no other complaints and is A&Ox3. Review of Systems Review of Systems: All systems reviewed & are unremarkable except as noted in HPI and below Exam Const: General: comfortable, no acute distress and in distress HENMT: Mouth: Yes moist mucous membranes Neck: Neck: supple and no JVD Resp: Effort & Inspection: normal respiratory effort Auscultation: clear to auscultation bilaterally Cardio: Rate: regular rate Rhythm: regular rhythm GI: GI Palp: Yes Soft to palpation and No Tenderness to palpation present (GI) Skin: General skin exam: normal color, no rashes or lesions noted and no erythema Neuro: Cognition (Neuro): normal cognition Speech: normal speech Motor exam (neuro): Abnormal motor strength present (3.5-4/5 BUE and BLE.) Sensory Exam: normal sensation Other: Pt. is tired, but able to arouse without difficulty. Extrem: General: normal to inspection Right upper extremity: normal to inspection Left upper extremity: normal to inspection Right lower extremity: normal to inspection Left lower extremity: normal to inspection Psych: Mental Status: mental status carolyn
--- NOTE | 2021-04-10 15:54 | PC.NURSE ---
Pt's orientation has declined since admission. Per pt's daughter, pt is A&O X3 at baseline. Pt has been A&O x1 over night and today 04/10/21. RN expressed this concern to the hospitalist, Zelda. During lunch, pt started eating a napkin and was not able use utensils as well as he usually does. Will continue to monitor orientation.
[2021-04-10] MEDS: ACETAMINOPHEN 500 MG TABLET 1000 MG PO (17:31)
[2021-04-10] MEDS: risperiDONE 0.25 MG TABLET 0.5 MG PO (20:31)
[2021-04-10] MEDS: SOTALOL HCL 80 MG TABLET PO (20:32)
[2021-04-10] MEDS: TAMSULOSIN HCL 0.4 MG CAPSULE PO (20:32)
[2021-04-11] VITALS (7 sets, daily range): BP systolic 115–127; BP diastolic 68–69; PULSE 69–73; RESP 16–18; TEMP 36.7–37; O2SAT 96–99
[2021-04-11 06:18] LABS: Alanine Aminotransferase 22 U/L (4-50); Albumin Level 3.9 g/dL (3.5-5.1); Alkaline Phosphatase 81 U/L (38-126); Anion Gap 7 mmol/L (8-16); Aspartate Amino Transferase 34 U/L (17-59); Bilirubin,Total 0.5 mg/dL (0.2-1.3); Blood Urea Nitrogen 26 mg/dL (9-20); Calcium 8.4 mg/dL (8.4-10.2); Carbon Dioxide 24 mmol/L (22-30); Chloride 107 mmol/L (98-107); Estimated CRCL calculation 52 ml/min; Estimated Glomerular Filt Rate 58; Glucose 97 mg/dL (65-110); Magnesium 2.5 mg/dL (1.6-2.3); Potassium 4.1 mmol/L (3.4-5.0); Sodium 138 mmol/L (137-145)
--- NOTE | 2021-04-11 08:11 | PM.DS ---
DS: Admitting Diagnosis Discharge Date 04/11/2021 Admitting Diagnosis 04/08/2021 DS: Discharge Diagnosis Discharge Diagnosis (1) Chronic anticoagulation: Code(s): Z79.01 - regional rehabilitation director (current) use of anticoagulants Status: Acute Assessment and Plan: - Resume Eliquis (2) Atrial fibrillation: Code(s): I48.91 - Unspecified atrial fibrillation Status: Acute Assessment and Plan: - Resume Eliquis (3) Abnormality of gait and mobility: Onset Date: ~04/10/21 Code(s): R26.9 - Unspecified abnormalities of gait and mobility Status: Acute Assessment and Plan: - Continue Home Health - Ambulate only with assist. (4) Subclinical hypothyroidism: Onset Date: ~04/10/21 Code(s): E03.8 - Other specified hypothyroidism Status: Acute Assessment and Plan: - Recheck with PCP in follow up. - T4 is normal. (5) Syncope and collapse: Code(s): R55 - Syncope and collapse Status: Acute Assessment and Plan: - Improved and stable. - Follow up with PCP. (6) Chronic kidney disease, stage 3: Code(s): N18.30 - Chronic kidney disease, stage 3 unspecified Status: Acute Assessment and Plan: - Renal function is now at baseline. - Follow up with PCP. (7) Chronic anemia: Code(s): D64.9 - Anemia, unspecified Status: Acute (8) Seizures: Code(s): R56.9 - Unspecified convulsions Status: Acute Assessment and Plan: - Continue Keppra at 500 mg DS: Summary Hospital Course Hospital Course: This pleasant, 81 year old gentleman with significant PMH of BPH, Atrial Fibrillation, Chronic ischemic Right MCA stroke, Colon polyps, Dementia, pacemaker and Paralysis of LUE, left facial droop residual, and left hemipareis presented to the ER with complaints of having a possible syncopal episode. He fell off the toilet while having a BM and is unsure why he did so. He was not sure if he passed out or not. He denies straining while attempting to move his bowels. He did believe he hit his head and was initially Dyspneic, but his symptoms did calm down. He reported left arm pain with abrasion to the left shoulder and some mild nausea. He's on Eliquis for Atrial Fibrillation. In ER his labs were remarkable for creatinind of 1.4 and BUN of 34, with Platelets of 144 and Hgb of 11.3 without any signs of obvious bleeding. CT of head showed no acute intracranial process, and did show an unchanged large old infarct involving the right frontal, temporal, and parietal lobes in the right MCA vascular distribution and small old infarct in the left occipital lobe. CXR was negative for any acute findings or disease. CT C-spine showed severe cervical spondylosis, and no acute osseous abnormality. Hip and pelvis X-ray shows no acute fracture. Left shoulder X-ray shows mild left acromioclavicular and minimal osteoporosis. No acute osseous abnormality. EKG in was reviewed and showed Paced rhythm at [address] changes. He was admitted to the hospital for further workup and likely placement as the patient lives at home alone. During his admission he had interrogation of his pacemaker and it was found to be functioning normally. In addition, he has been stable on Telemetry. His kidney function was initially marginally higher than baseline, but it has returned to his baseline today at 1.2. Pt. is not Orthostatic, and his po intake has increased while here. His Hgb and HCT have remained stable and there are no signs of acute bleeding. He has been started on his new dose of Keppra being 500 mg po BID as he had not yet started this new dose at home prior to coming into the ER. He was originally on 750 mg po BID, and this is a decreased dose. He has had no seizure activity since being here. His VSS throughout the inpatient stay with exception of a momentary increase in heartrate from 180s-240s during sneezing. Pt. asymptomatic and his heart rate
[2021-04-11] MEDS: SERTRALINE HCL 50 MG TABLET 200 MG PO (08:31)
[2021-04-11] MEDS: MAGNESIUM OXIDE 400 MG TABLET PO (08:31)
[2021-04-11] MEDS: ATORVASTATIN 40 MG TABLET PO (08:31)
[2021-04-11] MEDS: levETIRAcetam 500 MG TABLET PO (08:32)
[2021-04-11] MEDS: CYANOCOBALAMIN 1,000 MCG TABLET 1000 MCG PO (08:32)
[2021-04-11] MEDS: FUROSEMIDE 40 MG TABLET PO (08:32)
[2021-04-11] MEDS: APIXABAN 5 MG TABLET PO (08:32)
[2021-04-11] MEDS: carvediloL 3.125 MG TABLET PO (08:32)
[2021-04-11 08:47] LABS: Basophils Percent Auto 0.8 % (0.2-1.2); Eosinophils Absolute Auto 0.2 K/mm3 (0-0.3); Eosinophils Percent Auto 3.6 % (0-4.4); Hematocrit 33.4 % (42.0-52.0); Immature Granulocyte Absolute 0.01 K/mm3 (0.00-0.031); Immature Granulocyte Percent A 0.2 % (0-0.5); Immature Platelet Fraction Pct 3.7 % (0.9-11.2); Lymphocytes Absolute Auto 1.52 K/mm3 (0.9-3.2); Lymphocytes Percent Auto 30.5 % (18.3-44.2); Mean Corpuscular HGB Conc 32.9 g/dl (32-36); Mean Corpuscular Hemoglobin 32.1 pg (26-34); Mean Corpuscular Volume 97.4 fl (80-100); Mean Platelet Volume 10.5 fl (7.4-10.4); Monocytes Absolute Auto 0.4 K/mm3 (0.1-0.6); Monocytes Percent Auto 8.4 % (2.6-8.5); Neutrophils Absolute Auto 2.8 K/mm3 (1.3-6.7); Neutrophils Percent Auto 56.5 % (45.5-73.1); Platelet Count Result 135 k/mm3 (150-375); Red Blood Count 3.43 M/mm3 (4.6-6.20); Red Cell Distribution Width 13.4 % (11.5-14.5)
== END 2021-04-11 15:00 | disposition home health service (06) | DRG 312 ==
LOC: ANHED 13:02 → ANH3MED 16:22
PROVIDERS: Emergency Medicine; Physician Assistant; Admitting Provider Family Medicine; Emergency Provider General Practice; PCP Internal Medicine; Visit Provider Nurse Practitioner Adult Health
DX: R55 Syncope and collapse (principal); I69.354 Hemiplegia and hemiparesis following cerebral infarction affecting left non-dominant side; E03.8 Other specified hypothyroidism; N18.30 Chronic kidney disease, stage 3 unspecified; D64.9 Anemia, unspecified; R56.9 Unspecified convulsions; I48.91 Unspecified atrial fibrillation; N40.0 Benign prostatic hyperplasia without lower urinary tract symptoms; F03.90 Unspecified dementia, unspecified severity, without behavioral disturbance, psychotic disturbance, mood disturbance, and anxiety; Z95.0 Presence of cardiac pacemaker; I69.392 Facial weakness following cerebral infarction; Z79.01 Long term (current) use of anticoagulants; Z85.46 Personal history of malignant neoplasm of prostate; Z86.718 Personal history of other venous thrombosis and embolism
CPT/HCPCS: 36415; 70450; 71045; 72125; 73030; 73502; 80048; 80053; 81003; 83735; 83880; 84439; 84443; 84480; 84484; 85025; 85027; 85055; 85610; 85730; 93005; 96365; 97161; 97166; 97530; 99285; A9270; G0378; J0131

== ENCOUNTER 2021-08-06 06:57 | Observation (INO) | payer MEDICARE, OTHER, SELFPAY ==
[2021-08-06] VITALS (11 sets, daily range): BP systolic 92–153; BP diastolic 52–72; PULSE 68–72; RESP 14–19; TEMP 36.2–36.9; O2SAT 93–99; BMI 33.8
--- NOTE | ~2021-08-06 | XR_ITS ---
EXAMINATION: XR chest 2V DATE: 08/06/2021 08:13 INDICATION: Chest wall pain. TECHNIQUE: Frontal and lateral views of the chest were obtained. COMPARISON: Chest single view 04/08/2021, CT abdomen and pelvis 12/30/2011 FINDINGS: There is mild atelectasis at left lung base. No pleural effusion or pneumothorax. Cardiomeg az is noted. There is a left chest wall pacer with leads in the right atrium and right ventricle. IMPRESSION: 1. Mild atelectasis at left lung base. 2. Cardiomegaly. Reviewed, dictated and finalized at location A.
--- NOTE | ~2021-08-06 | CT_ITS ---
EXAMINATION: CT brain wo con INDICATION: Seizure COMPARISON: 04/08/2021 TECHNIQUE: Standard unenhanced head CT. The dose-length product (DLP) was 605.33 mGy-cm. The mA was a djusted according to patient size. Iterative reconstruction technique was employed. FINDINGS: There is no acute intraparenchymal hemorrhage. No evidence of mass lesion. An old right mid dle cerebral artery distribution infarct is noted. There is mild ex vacuo enlargement of the right la teral ventricle. A chronic left occipital infarct is also noted. No evidence of acute infarction. The re is mild periventricular and subcortical hypodensity probably related to small vessel ischemic dise ase. There is mild prominence of the sulci and ventricles related to cerebral atrophy. Intracranial c alcified cerebral atherosclerosis is noted. There are no extra-axial collections. There is no mass ef fect or midline shift. The orbits and soft tissues are unremarkable. The visualized sinuses and masto id air cells are well aerated. IMPRESSION: 1. Old right middle cerebral artery distribution infarct and old left occipital infarct without acute intracranial abnormality. 2. Age related findings. Reviewed, dictated and finalized at location A.
--- NOTE | ~2021-08-06 | XR_ITS ---
EXAM: XR hip LT 2V w AP pelvis DATE: 08/06/2021 17:49 HISTORY: Left hip pain s/p seizure/fall . COMPARISON: 04/08/2021. FINDINGS: Decreased mineralization. No fracture or dislocation. No lytic or blastic lesion. Degenera tive changes in the lumbar spine, hips and pubic symphysis. No erosion or periosteal change. IVC filt er Prostate implants. Pelvic phleboliths. Arterial calcifications. IMPRESSION: No acute osseous finding in the pelvis or left hip. Reviewed, dictated and finalized at location K.
--- NOTE | 2021-08-06 07:08 | ECG_ITS ---
Measurements Intervals [place] Rate: 70 P: 247 RI: 157 QRS: -9 QRSD: 102 T: 15 QT: 425 QTc: 459 Interpretive Statements ELECTRONIC ATRIAL PACEMAKER COMPARED TO ECG 04/08/2021 13:07:21 NO SIGNIFICANT CHANGES Electronically Signed On 08-06-2021 10:04:48 CDT by Teodoro Bradley M.D.
[2021-08-06 07:16] LABS: Basophils Percent Auto 0.5 % (0.2-1.2); Eosinophils Absolute Auto 0.2 K/mm3 (0-0.3); Eosinophils Percent Auto 2.9 % (0-4.4); Hematocrit 36.8 % (42.0-52.0); Immature Granulocyte Absolute 0.01 K/mm3 (0.00-0.031); Immature Granulocyte Percent A 0.2 % (0-0.5); Lymphocytes Absolute Auto 2.72 K/mm3 (0.9-3.2); Mean Corpuscular HGB Conc 32.6 g/dl (32-36); Mean Corpuscular Hemoglobin 31.3 pg (26-34); Mean Corpuscular Volume 96.1 fl (80-100); Mean Platelet Volume 10.1 fl (7.4-10.4); Monocytes Absolute Auto 0.5 K/mm3 (0.1-0.6); Monocytes Percent Auto 7.7 % (2.6-8.5); Neutrophils Percent Auto 46.7 % (45.5-73.1); Platelet Count Result 148 k/mm3 (150-375); Red Blood Count 3.83 M/mm3 (4.6-6.20); Red Cell Distribution Width 13.7 % (11.5-14.5); White Blood Count 6.5 K/mm3 (4.5-10.0)
[2021-08-06 07:26] LABS: Albumin Level 4.3 g/dL (3.5-5.1); Alkaline Phosphatase 72 U/L (38-126); Anion Gap 12 mmol/L (8-16); Aspartate Amino Transferase 27 U/L (17-59); Bilirubin,Total 0.2 mg/dL (0.2-1.3); Blood Urea Nitrogen 25 mg/dL (9-20); Calcium 8.5 mg/dL (8.4-10.2); Carbon Dioxide 23 mmol/L (22-30); Chloride 106 mmol/L (98-107); Estimated Glomerular Filt Rate 58; Glucose 151 mg/dL (65-110); Lipase 174 U/L (23-300); Sodium 141 mmol/L (137-145)
[2021-08-06 07:37] LABS: Troponin I < 0.012 ng/mL (0.000-0.034)
[2021-08-06 07:41] LABS: Alanine Aminotransferase 23 U/L (6-50)
[2021-08-06 07:45] LABS: INR 1.2; Prothrombin Time 14.7 Seconds (11.1-14.7)
[2021-08-06 07:47] LABS: Partial Thromboplastin Time 29.3 SECONDS (22.3-36.8)
[2021-08-06] MEDS: levETIRAcetam 500MG/NACL 100ML 500 MG/100 ML BAG 400 MG IVPB (10:00)
[2021-08-06 10:56] LABS: Troponin I 0.058 ng/mL (0.000-0.034)
--- NOTE | 2021-08-06 12:26 | ED.GENADULT ---
HPI - General Adult General Chief complaint: Unspecified Stated complaint: apneic episode Time Seen by Provider: 08/06/21 08:21 Source: patient and family Mode of arrival: EMS Limitations: no limitations History of Present Illness HPI narrative: 81-year-old with a history of seizure disorder, hypertension, hyperlipidemia, CVA, AF on Eliquis [facility] with a brief period of unresponsiveness. As per the EMS report they did 1 round of CPR without any medication upon EMS arrival patient is wide awake alert. Patient upon arrival to the ER he is wide awake alert answers all the questions complains of headache and a small laceration on the tongue. Patient states that he might have had a seizure. He denies any fever or chills no history of chest pain or shortness of breath. Denies abdominal pain or nausea or vomiting. Related Data Home Medications Medication Instructions Recorded Confirmed apixaban 5 mg tablet (Eliquis) 5 mg PO BID 07/30/20 04/08/21 atorvastatin 40 mg tablet (Lipitor) 40 mg PO DAILY 07/30/20 04/08/21 carvedilol 3.125 mg tablet (Coreg) 3.125 mg PO BID 07/30/20 04/08/21 cyanocobalamin (vitamin B-12) 1,000 mcg PO DAILY 07/30/20 04/08/21 1,000 mcg tablet docusate sodium 100 mg capsule 100 mg PO DAILY PRN Constipation 07/30/20 04/08/21 (Colace) magnesium oxide 400 mg (241.3 mg 400 mg PO DAILY 07/30/20 04/08/21 magnesium) tablet (MagOx) sertraline 100 mg tablet (Zoloft) 200 mg PO DAILY 07/30/20 04/08/21 sotalol 80 mg tablet 80 mg PO HS 07/30/20 04/08/21 tamsulosin 0.4 mg capsule (Flomax) 0.4 mg PO HS 07/30/20 04/08/21 furosemide 40 mg tablet 40 mg PO DAILY 04/02/21 04/08/21 Allergies Allergy/AdvReac Type Severity Reaction Status Date / Time nitrofurantoin Allergy Severe significant Verified 08/06/21 07:08 [From Macrobid] rash causing hospitalization Review of Systems Review of Systems: All systems reviewed & are unremarkable except as noted in HPI and below Constitutional: Constitutional: Reports no additional constitutional complaints Eyes: Eyes: Reports no additional eye complaints ENT: Reports as per HPI Cardiovascular: Cardiovascular: Reports no additional cardiovascular complaints Respiratory: Respiratory: Reports as per HPI Gastrointestinal: Gastrointestinal: Reports no additional gastrointestinal complaints Musculoskeletal: Musculoskeletal: Reports no additional musculoskeletal complaints Neurologic: Reports as per HPI [facility] Past Medical History Medical History Atrial fibrillation Benign prostatic hyperplasia Chronic anemia Chronic anticoagulation 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 Chronic kidney disease, stage 3 Colon polyps Deep venous thrombosis Dementia Gastrointestinal ulcer Pacemaker Prostate cancer Seizures Surgical History Surgical History History of cardiac pacemaker History of colonoscopy with polypectomy History of prostatectomy Status post ablation of atrial fibrillation Family History Family History Father Mother Other No significant family history Social History Social History (Updated 04/08/21 @ 22:49 by Ana Marcos PA-C) Social History: Healthcare power of collections attorney: Alicia Damon, daughter. Code status: Full code. Smoking status: Never smoker Alcohol intake: never Substance use: never Additional living arrangements comments: The patient lives in his own home. He has 24 hour caretakers. Additional occupation/education comments: Retired. Exam Narrative: GENERAL: Well-appearing, well-nourished, and in no acute distress. HEAD: Normocephalic, atraumatic. EYES: PERRLA and EOMI. ENT: Nares clear, no epistaxis. Mucous membranes moist has small tongue laceration ,no active bleeding NECK:
--- NOTE | 2021-08-06 13:40 | ED.GENADULT ---
HPI - General Adult General Chief complaint: Unspecified Stated complaint: apneic episode Time Seen by Provider: 08/06/21 08:21 Source: patient and family Mode of arrival: EMS Limitations: no limitations Related Data Home Medications Medication Instructions Recorded Confirmed apixaban 5 mg tablet (Eliquis) 5 mg PO BID 07/30/20 04/08/21 atorvastatin 40 mg tablet (Lipitor) 40 mg PO DAILY 07/30/20 04/08/21 carvedilol 3.125 mg tablet (Coreg) 3.125 mg PO BID 07/30/20 04/08/21 cyanocobalamin (vitamin B-12) 1,000 mcg PO DAILY 07/30/20 04/08/21 1,000 mcg tablet docusate sodium 100 mg capsule 100 mg PO DAILY PRN Constipation 07/30/20 04/08/21 (Colace) magnesium oxide 400 mg (241.3 mg 400 mg PO DAILY 07/30/20 04/08/21 magnesium) tablet (MagOx) sertraline 100 mg tablet (Zoloft) 200 mg PO DAILY 07/30/20 04/08/21 sotalol 80 mg tablet 80 mg PO HS 07/30/20 04/08/21 tamsulosin 0.4 mg capsule (Flomax) 0.4 mg PO HS 07/30/20 04/08/21 furosemide 40 mg tablet 40 mg PO DAILY 04/02/21 04/08/21 apixaban 5 mg tablet (Eliquis) mg 08/06/21 finasteride 5 mg tablet tablet 08/06/21 08/06/21 spironolactone 25 mg tablet tablet 08/06/21 tamsulosin 0.4 mg capsule mg PO 08/06/21 08/06/21 Allergies Allergy/AdvReac Type Severity Reaction Status Date / Time nitrofurantoin Allergy Severe significant Verified 08/06/21 07:08 [From Macrobid] rash causing hospitalization [facility] Past Medical History Medical History Atrial fibrillation Benign prostatic hyperplasia Chronic anemia Chronic anticoagulation 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 Chronic kidney disease, stage 3 Colon polyps Deep venous thrombosis Dementia Gastrointestinal ulcer Pacemaker Prostate cancer Seizures Surgical History Surgical History History of cardiac pacemaker History of colonoscopy with polypectomy History of prostatectomy Status post ablation of atrial fibrillation Family History Family History Father Mother Other No significant family history Social History Social History (Updated 04/08/21 @ 22:49 by Ana Marcos PA-C) Social History: Healthcare power of contract attorney: Alicia Damon, daughter. Code status: Full code. Smoking status: Never smoker Alcohol intake: never Substance use: never Additional living arrangements comments: The patient lives in his own home. He has 24 hour caretakers. Additional occupation/education comments: Retired. Course Vital Signs Vital signs: Vital Signs Temperature 98.4 F 08/06/21 06:55 Pulse Rate 70 08/06/21 06:55 Respiratory Rate 16 08/06/21 06:55 Blood Pressure 112/69 08/06/21 06:55 Pulse Oximetry 93 08/06/21 06:55 Oxygen Delivery Room Air 08/06/21 06:55 Temperature 97.8 F 08/06/21 07:52 Pulse Rate 68 08/06/21 07:52 Respiratory Rate 18 08/06/21 07:52 Blood Pressure 153/61 H 08/06/21 07:52 Pulse Oximetry 93 08/06/21 07:16 Oxygen Delivery Room Air 08/06/21 06:55 Medical Decision Making Vital Signs Vital Signs: Vital Signs Temperature 98.4 F 08/06/21 06:55 Pulse Rate 70 08/06/21 06:55 Respiratory Rate 16 08/06/21 06:55 Blood Pressure 112/69 08/06/21 06:55 Pulse Oximetry 93 08/06/21 06:55 Oxygen Delivery Room Air 08/06/21 06:55 Temperature 97.8 F 08/06/21 07:52 Pulse Rate 68 08/06/21 07:52 Respiratory Rate 18 08/06/21 07:52 Blood Pressure 153/61 H 08/06/21 07:52 Pulse Oximetry 93 08/06/21 07:16 Oxygen Delivery Room Air 08/06/21 06:55 Lab Data Result diagrams: 08/06/21 07:10 08/06/21 07:10 Labs: Lab Results 08/06/21 08/06/21 08/06/21 Range/Units 07:10 07:10 07:10 WBC 6.5 (4.5-10.0) K/mm3 RBC 3.83 L (4.6-6.20) M/mm3 Hgb 12.0 L (14.0-1
--- NOTE | 2021-08-06 13:44 | ADMGEN ---
This patient, Rony Rock, was admitted to IMU Room 202-. Patient/family oriented to hospital policies and general routines including ID bracelet, bed and alarms, visiting hours, pain management, procedures, bathroom and other care routines, personal items, smoking policy, room service/diet, and visiting hours. Information on how to activate the Rapid Response Team has been discussed. Patient/Family are encouraged to report perceived risks to care and to ask questions if they do not understand what they are told or what they should do.
[2021-08-06 15:19] LABS: Troponin I 0.069 ng/mL (0.000-0.034)
--- NOTE | 2021-08-06 15:44 | PM.IMHP ---
H&P: HPI History of Present Illness Date/Time: 08/06/21 15:44 Chief Complaint: Unresponsive episode Narrative: Date of service: 08/06/2021 Rony Rock is an 81-year-old male with a history of atrial fibrillation s/p ablation on chronic anticoagulation, prostate cancer s/p radiation therapy, chronic stroke with subsequent left upper extremity weakness, seizure disorder, CKD, DVT s/p IVC filter, chronic anemia, and CKD who presented to the emergency department on 08/06/2021 from his assisted living facility after a suspected seizure. The patient states ?I had a spell.? He describes that he was standing up in his bed and 7 was helping him to change his pants when he fell back into the bed and ?I must have passed out. I felt like I was trying to swallow my tongue.? He does not recall any further details until he arrived at the ED. it was reported to nursing staff on presentation that staff at assisted living facility attempted CPR as the patient was unresponsive but this was promptly discontinued as the patient became alert. He cannot recall CPR being attempted but he has no soreness of his chest and denies bruising. It appears he did bite his tongue during the episode and he endorses pain at the tip of the tongue. At the time of my evaluation, his main complaint was feeling tired. His son is at the bedside who reports that this is a pretty typical presentation for him after having a seizure. He states he typically is flushed afterwards with decreased energy and is overall lethargic and then slowly becomes back to normal. The patient agrees and states that he feels pretty much back to normal at this time. He reports he does follow with a neurologist. His medication is administered to him and both he and his son feel confident that he has not missed any doses of his Keppra. His son states that the dose was recently lowered about 6 months ago as the patient was having increasing fatigue and it was thought that it may be due to high doses of Keppra. On presentation to the ED, his vital signs were stable, laboratory workup was unremarkable, head CT showed old right MCA infarct and old left occipital infarct with no acute findings, CXR also with no acute findings, no evidence of rib fracture, laboratory workup unremarkable with slight increase in 3 hour troponin to 0.058. Patient specifically denies chest pain. He will be admitted to the hospitalist service for observation and will be seen in consultation by Neurology. Supervising physician for this history and physical is Dr. Grupo Aguila. Review of Systems Review of Systems: All systems reviewed with pertinent positives and negatives as per HPI. Patient does endorse urinary incontinence and requires depends. He states that his bottom is sore from lying down for a prolonged amount of time. He reports difficulty with ambulation states he requires the use of an electronic wheelchair. His son is present and states that he is generally pretty independent with ambulation and can walk around using a cane with assistance. The patient denies shortness of breath, chest pain, arm pain, jaw pain. Denies nausea, vomiting, fever, or chills. No abdominal pain. He does endorse some pain in the left hip which he just noticed today and he believes that happened when he fell into the bed. He endorses chronic weakness of his left upper extremity and cannot move the left upper extremity without assistance. [facility] Past Medical History Medical History (Updated 08/06/21 @ 16:00 by Kira Helm PA-C) Atrial fibrillation Benign prostatic hyperplasia Chronic anemia Chronic anticoagulation 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 Chronic kidney disease, stage 3 Colon polyps Deep venous thrombosis Dementia Gastrointestinal ulcer Pacemaker Presence of IVC filter Prostate cancer S/p radiation Seizures Surgical History Surgical History (Updated 08/06/21 @ 16:00 by Kira
[2021-08-06] MEDS: busPIRone HCL 5 MG TABLET PO (17:17)
[2021-08-06] MEDS: APIXABAN 5 MG TABLET PO (17:17)
[2021-08-06] MEDS: DOCUSATE SODIUM 100 MG CAPSULE PO (20:56)
[2021-08-06] MEDS: SOTALOL HCL 80 MG TABLET PO (20:56)
[2021-08-06] MEDS: risperiDONE 0.5 MG TABLET PO (20:57)
[2021-08-06] MEDS: TAMSULOSIN HCL 0.4 MG CAPSULE PO (20:57)
[2021-08-06] MEDS: levETIRAcetam Tablet 250 MG, levETIRAcetam Tablet 500 MG 750 MG PO (20:57)
[2021-08-06 22:23] LABS: Troponin I 0.051 ng/mL (0.000-0.034)
[2021-08-07] VITALS (16 sets, daily range): BP systolic 103–119; BP diastolic 60–77; PULSE 70–72; RESP 12–18; TEMP 36.3–36.9; O2SAT 96–99
[2021-08-07 05:06] LABS: Hematocrit 33.5 % (42.0-52.0); Hemoglobin 10.7 g/dL (14.0-18.0); Mean Corpuscular HGB Conc 31.9 g/dl (32-36); Mean Corpuscular Hemoglobin 31.2 pg (26-34); Mean Corpuscular Volume 97.7 fl (80-100); Mean Platelet Volume 10.8 fl (7.4-10.4); Platelet Count Result 112 k/mm3 (150-375); Red Blood Count 3.43 M/mm3 (4.6-6.20); Red Cell Distribution Width 13.8 % (11.5-14.5); White Blood Count 4.5 K/mm3 (4.5-10.0)
[2021-08-07 05:20] LABS: Anion Gap 3 mmol/L (8-16); Blood Urea Nitrogen 23 mg/dL (9-20); Calcium 8.2 mg/dL (8.4-10.2); Carbon Dioxide 25 mmol/L (22-30); Chloride 108 mmol/L (98-107); Estimated CRCL calculation 62 ml/min; Estimated Glomerular Filt Rate > 60; Glucose 90 mg/dL (65-110); Potassium 4.6 mmol/L (3.4-5.0); Sodium 136 mmol/L (137-145)
[2021-08-07] MEDS: DONEPEZIL HCL 10 MG TABLET PO (08:44)
[2021-08-07] MEDS: CHOLECALCIFEROL 1,000 UNITS TABLET 2000 UNITS PO (08:44)
[2021-08-07] MEDS: carvediloL 3.125 MG TABLET PO ×2 (08:44→16:51)
[2021-08-07] MEDS: levETIRAcetam Tablet 250 MG, levETIRAcetam Tablet 500 MG 750 MG PO ×2 (08:44→20:33)
[2021-08-07] MEDS: FINASTERIDE 5 MG TABLET PO (08:44)
[2021-08-07] MEDS: CYANOCOBALAMIN 1,000 MCG TABLET 1000 MCG PO (08:45)
[2021-08-07] MEDS: busPIRone HCL 5 MG TABLET PO ×2 (08:45→16:51)
[2021-08-07] MEDS: PANTOPRAZOLE 40 MG TABLET PO (08:45)
[2021-08-07] MEDS: MAGNESIUM OXIDE 400 MG TABLET PO (08:45)
[2021-08-07] MEDS: ATORVASTATIN 40 MG TABLET PO (08:45)
[2021-08-07] MEDS: SERTRALINE HCL 50 MG TABLET 200 MG PO (08:45)
[2021-08-07] MEDS: FUROSEMIDE 40 MG TABLET PO (08:45)
[2021-08-07] MEDS: APIXABAN 5 MG TABLET PO ×2 (08:45→16:51)
--- NOTE | 2021-08-07 12:08 | WPDNEURCNPN ---
Assessment and Plan Assessment and plan (1) Breakthrough seizure: Code(s): G40.919 - Epilepsy, unspecified, intractable, without status epilepticus Status: Acute Plan 1 old stroke 2 focal epilepsy 3 recent decrease in Keppra [id number] q.12 hours while in the correction because of the complaints of excessive sleepiness that could be the reason of the recurrent seizure will increase the Keppra to 750 q.12 hours continue as such in addition to the other medical care Consult date: 08/07/21 Time Seen: 11:00 Reason for consult: seizure HPI: Rony Rock is a 81 year old male admitted to the hospital through the emergency room for the complaints of apneic episode in addition to the ongoing history of 1. Seizure disorder 2. Hypertension 3. Hyperlipidemia 4. Cerebrovascular accident 5. Atrial fibrillation patient was brought to the emergency room from the correction for the brief episode of unresponsiveness EMS who reached the scene did 1 round of CPR without any medication and by the time they patient was awake and alert and reported to them he that he might have had a seizure. his outpatient medication included apixaban 5 mg b.i.d., atorvastatin 40 mg daily, carvedilol 3.125 mg b.i.d., sertraline 100 mg each 2 tablets daily, patient has had the right MCA stroke in the past with resultant left hemiparesis and has been on chronic anticoagulation in addition to the history of gastrointestinal ulcer and DVT is never smoker never a drinker initial vital signs were stable and was admitted from the ER with the diagnosis of seizure initial vital signs were stable so as the lab, chest x-ray was compatible with mild cardiomegaly CT of the head documented old right middle cerebral artery distribution infarction involving the left occipital infarct as well EKG revealed no atrial fibrillation patient was continued on levetiracetam 500 mg p.o. b.i.d. 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 Chronic kidney disease, stage 3 Colon polyps Deep venous thrombosis Dementia Gastrointestinal ulcer Pacemaker Presence of IVC filter Prostate cancer S/p radiation Seizures Surgical History Surgical History (Updated 08/06/21 @ 16:00 by Kira Helm PA-C) History of cardiac pacemaker History of colonoscopy with polypectomy Status post ablation of atrial fibrillation Family History Family History Father Mother Other No significant family history Social History Social History (Updated 08/06/21 @ 16:00 by Kira Helm PA-C) Social History: Healthcare power of trade mark attorney: Alicia Damon, daughter. Code status: Full code. Smoking status: Never smoker Alcohol intake: never Substance use: never Living arrangements: assisted living Additional living arrangements comments: Recently moved to assisted living July 2021 Additional occupation/education comments: Retired. Spiritual care concerns: No Meds Home Medications and Allergies Home Medications Medication Instructions Recorded Confirmed Type atorvastatin 40 mg tablet (Lipitor) 40 mg PO DAILY 07/30/20 08/06/21 History carvedilol 3.125 mg tablet (Coreg) 3.125 mg PO BID 07/30/20 08/06/21 History cyanocobalamin (vitamin B-12) 1,000 mcg PO DAILY 07/30/20 08/06/21 History 1,000 mcg tablet docusate sodium 100 mg capsule 100 mg PO HS 07/30/20 08/06/21 History (Colace) magnesium oxide 400 mg (241.3 mg 400 mg PO DAILY 07/30/20 08/06/21 History magnesium) tablet (MagOx) sertraline 100 mg tablet (Zoloft) 200 mg PO DAILY 07/30/20 08/06/21 History
--- NOTE | 2021-08-07 15:08 | PM.IMPN ---
Progress Note: A&P Assessment and Plan (1) Seizures: Code(s): R56.9 - Unspecified convulsions Status: Acute Assessment and Plan: Patient presented from assisted living facility after breakthrough seizure and postictal period Appreciate neurology consultation Increased Keppra to 750 mg b.i.d. Keppra level ordered in ED; pending at this time Patient Keppra dose was decreased about 6 months ago to 500 mg BID due to concerns for fatigue. Dose reduction is the likely cause for breakthrough seizure Seizure precautions implemented Patient is established and follows with Dr. Elizondo (2) Elevated troponin: Code(s): R77.8 - Other specified abnormalities of plasma proteins Status: Acute Assessment and Plan: Troponin negative on presentation with slight increase up to 0.069 Suspect related to recent seizure activity Patient is asymptomatic. Denies chest pain. EKG unremarkable. No ST abnormalities. (3) Chronic kidney disease, stage 3: Code(s): N18.30 - Chronic kidney disease, stage 3 unspecified Status: Acute Assessment and Plan: Renal function appears consistent with baseline Monitor renal function (4) Chronic anemia: Code(s): D64.9 - Anemia, unspecified Status: Acute Assessment and Plan: Hemoglobin and hematocrit are stable on review of prior labs Continue to monitor H&H (5) HTN (hypertension), benign: Code(s): I10 - Essential (primary) hypertension Status: Acute Assessment and Plan: Blood pressures reviewed and have been well controlled. Last BP 119/64 Continue carvedilol Monitor BP trends (6) Atrial fibrillation: Code(s): I48.91 - Unspecified atrial fibrillation Status: Acute Assessment and Plan: Rate is controlled Continue Eliquis Continue low-dose carvedilol Continue sotalol Plan Patient participated in PT/OT. Recommendations for skilled rehab. Care coordination working on placement. Subjective Date/time seen: 08/07/21 15:08 Interval history: Date of service: 08/07/2021 Rony Rock is an 81-year-old male with a history of atrial fibrillation s/p ablation on chronic anticoagulation, prostate cancer s/p radiation therapy, chronic stroke with subsequent left upper extremity hemiparesis, seizure disorder, DVT s/p IVC filter, chronic anemia, and CKD who is seen in follow-up for breakthrough seizure. He feels that he is doing very well today. He essentially feels back to his normal state of health. He denies confusion, headache, nausea, vomiting, shortness breath, cough, chest pain, dizziness, lightheadedness. He does endorse feeling weak and is requiring assistance with getting up. He also required assistance with getting to the bathroom and getting cleaned up today. He denies hip pain today, stating this has resolved from yesterday. He has no additional pain. His appetite has been good. Review of Systems Review of Systems: All systems reviewed & are unremarkable except as noted in HPI and below Exam Narrative: General: Well-nourished, well-appearing 81-year-old male, sitting up in a chair by the bedside comfortable, NARD Neuro: awake, alert and oriented x4, speech clear, CN II-XII intact, left upper extremity hemiparesis, right upper extremity strength 4/5 HEENMT: normocephalic, atraumatic, EOMI, sclerae anicteric Chest: No bruising of chest wall, nontender to palpation Respiratory: clear to auscultation bilaterally, nonlabored breathing Cardio: regular rate, regular rhythm with S1-S2 Abdomen: nondistended, normoactive bowel sounds, soft, nontender to palpation Extremities: Trace edema of bilateral lower extremities (L>R), no erythema, or tenderness to palpation, DP pulses 2+ bilaterally Skin: Scattered abrasions and ecchymosis of bilateral upper extremities Psych: Pleasant and cooperative, appropriate mood and affect, judgment and insight intact Objectiv
[2021-08-07] MEDS: ACETAMINOPHEN 325 MG TABLET 650 MG PO (16:50)
--- NOTE | 2021-08-07 18:32 | PC.NURSE ---
This patient, Rony Rock, was transferred to [[id number] ] on 08/07/21 at 1832. Personal belongings sent with patient. Report given to [ANGELA Connell @ [phone] ]. Appropriate documentation sent with patient. Transfer delayed d/t patient receiving dinner tray and wanting to eat before moving. Receiving unit aware and ok with this.
--- NOTE | 2021-08-07 18:55 | ADMGEN ---
This patient, Rony Rock, was admitted to [facility] Surg Room 314-01 at 1850. Patient/family oriented to hospital policies and general routines including ID bracelet, bed and alarms, visiting hours, pain management, procedures, bathroom and other care routines, personal items, smoking policy, room service/diet, and visiting hours. Information on how to activate the Rapid Response Team has been discussed. Patient/Family are encouraged to report perceived risks to care and to ask questions if they do not understand what they are told or what they should do.
[2021-08-07] MEDS: DOCUSATE SODIUM 100 MG CAPSULE PO (20:30)
[2021-08-07] MEDS: risperiDONE 0.5 MG TABLET PO (20:30)
[2021-08-07] MEDS: SOTALOL HCL 80 MG TABLET PO (20:31)
[2021-08-07] MEDS: TAMSULOSIN HCL 0.4 MG CAPSULE PO (20:33)
[2021-08-08] VITALS (7 sets, daily range): BP systolic 98–133; BP diastolic 65–88; PULSE 69–70; RESP 18; TEMP 35.7–36.3; O2SAT 95–100
[2021-08-08 07:19] LABS: Hematocrit 33.6 % (42.0-52.0); Hemoglobin 10.8 g/dL (14.0-18.0); Mean Corpuscular HGB Conc 32.1 g/dl (32-36); Mean Corpuscular Volume 96.6 fl (80-100); Mean Platelet Volume 9.9 fl (7.4-10.4); Platelet Count Result 114 k/mm3 (150-375); Red Blood Count 3.48 M/mm3 (4.6-6.20); Red Cell Distribution Width 13.8 % (11.5-14.5); White Blood Count 4.1 K/mm3 (4.5-10.0)
[2021-08-08 07:27] LABS: Anion Gap 1 mmol/L (8-16); Blood Urea Nitrogen 25 mg/dL (9-20); Calcium 8.5 mg/dL (8.4-10.2); Carbon Dioxide 32 mmol/L (22-30); Chloride 106 mmol/L (98-107); Estimated CRCL calculation 52 ml/min; Estimated Glomerular Filt Rate 58; Glucose 97 mg/dL (65-110); Potassium 4.3 mmol/L (3.4-5.0); Sodium 139 mmol/L (137-145)
[2021-08-08] MEDS: DONEPEZIL HCL 10 MG TABLET PO (08:45)
[2021-08-08] MEDS: carvediloL 3.125 MG TABLET PO ×2 (08:45→17:33)
[2021-08-08] MEDS: CYANOCOBALAMIN 1,000 MCG TABLET 1000 MCG PO (08:45)
[2021-08-08] MEDS: ATORVASTATIN 40 MG TABLET PO (08:46)
[2021-08-08] MEDS: CHOLECALCIFEROL 1,000 UNITS TABLET 2000 UNITS PO (08:46)
[2021-08-08] MEDS: APIXABAN 5 MG TABLET PO ×2 (08:46→17:33)
[2021-08-08] MEDS: busPIRone HCL 5 MG TABLET PO ×2 (08:46→17:33)
[2021-08-08] MEDS: FUROSEMIDE 40 MG TABLET PO (08:46)
[2021-08-08] MEDS: MAGNESIUM OXIDE 400 MG TABLET PO (08:46)
[2021-08-08] MEDS: PANTOPRAZOLE 40 MG TABLET PO (08:46)
[2021-08-08] MEDS: FINASTERIDE 5 MG TABLET PO (08:46)
[2021-08-08] MEDS: SERTRALINE HCL 50 MG TABLET 200 MG PO (08:46)
[2021-08-08] MEDS: levETIRAcetam Tablet 250 MG, levETIRAcetam Tablet 500 MG 750 MG PO ×2 (08:49→20:02)
--- NOTE | 2021-08-08 09:35 | WPDNEUROLOGY ---
Neurology EEG Report General Information Date of Study: 08/07/21 TEST eeg DIAGNOSIS amnesia CONDITION OF RECORDING awake,drowsy and sleep EEG NUMBER [id number] CLINICAL HISTORY Patient is unsure why she is having the test but she has been admitted to the hospital for amnesia EEG DESCRIPTION background rhythm consists of low to medium voltage 6 to 7 hertz per 2nd theta admixed with multiple movement artifacts and low-voltage 15 to 18 hertz per 2nd beta. Multiple movement artifacts seen throughout the tracing. Hyperventilation not done. Photic stimulation produced normal drive. Non paroxysmal. Nonfocal. Nonlateralizing. IMPRESSION Abnormal record due to the slowing of the background rhythm, clinical correlation recommended these abnormalities could be suggestive of organic or metabolic encephalopathy and the possibility of neuro degenerative process cannot be ruled out.
--- NOTE | 2021-08-08 16:33 | PM.IMPN ---
Progress Note: A&P Assessment and Plan (1) Seizures: Code(s): R56.9 - Unspecified convulsions Status: Acute Assessment and Plan: Patient presented from assisted living facility after breakthrough seizure and postictal period Appreciate neurology consultation Increased Keppra to 750 mg b.i.d. Patient Keppra dose was decreased about 6 months ago to 500 mg BID due to concerns for fatigue. Dose reduction is the likely cause for breakthrough seizure Keppra level was low normal on presentation Seizure precautions implemented Patient is established and follows with Dr. Elizondo (2) Elevated troponin: Code(s): R77.8 - Other specified abnormalities of plasma proteins Status: Acute Assessment and Plan: Troponin negative on presentation with slight increase up to 0.069 Suspect related to recent seizure activity Patient is asymptomatic. Denies chest pain. EKG unremarkable. No ST abnormalities. (3) Chronic kidney disease, stage 3: Code(s): N18.30 - Chronic kidney disease, stage 3 unspecified Status: Acute Assessment and Plan: Renal function appears consistent with baseline Monitor renal function (4) Chronic anemia: Code(s): D64.9 - Anemia, unspecified Status: Acute Assessment and Plan: Hemoglobin and hematocrit are stable on review of prior labs Continue to monitor H&H (5) HTN (hypertension), benign: Code(s): I10 - Essential (primary) hypertension Status: Acute Assessment and Plan: Blood pressures reviewed and have been well controlled. Last BP 109/65 Continue carvedilol Monitor BP trends (6) Atrial fibrillation: Code(s): I48.91 - Unspecified atrial fibrillation Status: Acute Assessment and Plan: Rate is controlled Continue Eliquis Continue low-dose carvedilol Continue sotalol Plan Patient participated in PT/OT. Based on his functional status, he did not able to return to his assisted living facility. Planning for skilled rehab. Care coordination working on placement. Subjective Date/time seen: 08/08/21 16:33 Interval history: Date of service: 08/08/2021 Rony Rock is an 81-year-old male with a history of atrial fibrillation s/p ablation on chronic anticoagulation, prostate cancer s/p radiation therapy, chronic stroke with subsequent left upper extremity hemiparesis, seizure disorder, DVT s/p IVC filter, chronic anemia, and CKD who is seen in follow-up for breakthrough seizure. He is feeling well today. He is ambulating well using his hemicane. His appetite is good. He denies dizziness, lightheadedness, weakness. He feels that his left leg is a bit swollen, but states this is pretty typical for him. His son and daughter are at the bedside. Review of Systems Review of Systems: All systems reviewed & are unremarkable except as noted in HPI and below Exam Narrative: General: Well-nourished, well-appearing 81-year-old male, sitting up in a chair by the bedside, comfortable, NARD Neuro: awake, alert and oriented x4, speech clear, left upper extremity hemiparesis HEENMT: normocephalic, atraumatic, EOMI, sclerae anicteric Respiratory: clear to auscultation bilaterally, nonlabored breathing Cardio: regular rate, regular rhythm with S1-S2 Abdomen: nondistended, normoactive bowel sounds, soft, nontender to palpation Extremities: 1+ edema of bilateral lower extremities (L>R), no erythema, or tenderness to palpation Skin: Scattered abrasions and ecchymosis of bilateral upper extremities Psych: Pleasant and cooperative, appropriate mood and affect, judgment and insight intact Objective Data Vital Signs Vital Signs: Vital Signs - 24 hr 08/07/21 16:51 08/07/21 18:57 08/07/21 20:31 Temperature 97.3 F L Pulse Rate 70 72 72 Respiratory Rate 16 Blood Pressure 115/77 Pulse Oximetry 97 Oxygen Delivery 08/07/21 20:00 08/07/21 21:53 08/08/21 06:00
[2021-08-08] MEDS: risperiDONE 0.5 MG TABLET PO (20:02)
[2021-08-08] MEDS: SOTALOL HCL 80 MG TABLET PO (20:02)
[2021-08-08] MEDS: TAMSULOSIN HCL 0.4 MG CAPSULE PO (20:02)
[2021-08-08] MEDS: DOCUSATE SODIUM 100 MG CAPSULE PO (20:02)
[2021-08-09 06:00] VITALS: BP 107/64; PULSE 73; RESP 18; TEMP 35.7; O2SAT 96
[2021-08-09 08:00] VITALS: PULSE 72; RESP 18; O2SAT 96
[2021-08-09] MEDS: SERTRALINE HCL 50 MG TABLET 200 MG PO (09:06)
[2021-08-09] MEDS: FINASTERIDE 5 MG TABLET PO (09:06)
[2021-08-09] MEDS: CHOLECALCIFEROL 1,000 UNITS TABLET 2000 UNITS PO (09:06)
[2021-08-09 09:07] VITALS: PULSE 72
[2021-08-09] MEDS: DONEPEZIL HCL 10 MG TABLET PO (09:07)
[2021-08-09] MEDS: busPIRone HCL 5 MG TABLET PO ×2 (09:07→17:20)
[2021-08-09] MEDS: levETIRAcetam Tablet 250 MG, levETIRAcetam Tablet 500 MG 750 MG PO (09:07)
[2021-08-09] MEDS: PANTOPRAZOLE 40 MG TABLET PO (09:07)
[2021-08-09] MEDS: FUROSEMIDE 40 MG TABLET PO (09:07)
[2021-08-09] MEDS: carvediloL 3.125 MG TABLET PO ×2 (09:07→17:20)
[2021-08-09] MEDS: MAGNESIUM OXIDE 400 MG TABLET PO (09:08)
[2021-08-09] MEDS: ATORVASTATIN 40 MG TABLET PO (09:08)
[2021-08-09] MEDS: CYANOCOBALAMIN 1,000 MCG TABLET 1000 MCG PO (09:08)
[2021-08-09] MEDS: APIXABAN 5 MG TABLET PO ×2 (09:08→17:20)
[2021-08-09 14:00] VITALS: BP 122/74; PULSE 69; RESP 18; TEMP 36.3; O2SAT 100
--- NOTE | 2021-08-09 14:04 | PM.DS ---
DS: Admitting Diagnosis Discharge Date 08/09/2021 Admitting Diagnosis Breakthrough seizure DS: Discharge Diagnosis Discharge Diagnosis (1) Seizures: Code(s): R56.9 - Unspecified convulsions Status: Acute Assessment and Plan: Patient presented from assisted living facility after breakthrough seizure and postictal period He was seen in consultation by Neurology Patient Keppra dose was decreased about 6 months ago to 500 mg BID due to concerns for fatigue. Dose reduction is the likely cause for breakthrough seizure. Keppra level was low normal on presentation Keppra was increased to 750 mg b.i.d. Seizure precautions implemented Patient is established and follows with Dr. Elizondo and will follow up with as an outpatient (2) Elevated troponin: Code(s): R77.8 - Other specified abnormalities of plasma proteins Status: Acute Assessment and Plan: Troponin negative on presentation with slight increase up to 0.069 Suspect related to recent seizure activity Remain asymptomatic. Denid chest pain. EKG unremarkable. No ST abnormalities. (3) Chronic kidney disease, stage 3: Code(s): N18.30 - Chronic kidney disease, stage 3 unspecified Status: Acute Assessment and Plan: Renal function remained consistent with baseline. (4) Chronic anemia: Code(s): D64.9 - Anemia, unspecified Status: Acute Assessment and Plan: Hemoglobin and hematocrit remained stable on review of prior labs (5) HTN (hypertension), benign: Code(s): I10 - Essential (primary) hypertension Status: Acute Assessment and Plan: Blood pressures reviewed and were controlled. Continue carvedilol (6) Atrial fibrillation: Code(s): I48.91 - Unspecified atrial fibrillation Status: Acute Assessment and Plan: Rate remained controlled Continue Eliquis, low-dose carvedilol, sotalol DS: Summary Hospital Course Hospital Course: Date of admission: 08/06/2021 Date of discharge: 08/09/2021 Rony Rcok is an 81-year-old male with a history of atrial fibrillation s/p ablation on chronic anticoagulation, prostate cancer s/p radiation therapy, chronic stroke with subsequent left upper extremity weakness, seizure disorder, CKD, DVT s/p IVC filter, chronic anemia, and CKD who presented to the emergency department on 08/06/2021 after a seizure at his nursing facility. He had postictal confusion. On presentation to the ED, his vital signs were stable, laboratory workup was unremarkable, head CT showed old right MCA infarct and old left occipital infarct with no acute findings, CXR also with no acute findings, no evidence of rib fracture, troponin slightly elevated. He was admitted to the hospitalist service for further evaluation and management was seen in consultation by Neurology. Please see above for further details. His Keppra dose was increased. He returned to his baseline mental status. He did participate in PT/OT during admission and unfortunately based on his functional status was not able to return to his assisted living facility. He was accepted to [facility] for continued therapy and will hopefully return to his assisted living facility following this rehabilitation. Given the patient's overall improvement, he was determined to no longer require inpatient care and was discharged to [facility] on 08/09/2021 in hemodynamically stable condition Case signed out to rehab physician Dr. Cullen. Discussed with the patient and his family worrisome signs and symptoms for which to monitor and he was educated on his medication changes. He will follow-up with his PCP as an outpatient as well as his neurologist. Status at Discharge Functional status at discharge: uses cane/walker Overall status at discharge: patient is progressing back to baseline Time Spent with Patient Time attestation: Total time spent providing and/or coordinating discharge se
[2021-08-09 17:20] VITALS: PULSE 74
== END 2021-08-09 17:40 ==
LOC: ANHED 08:21 → ANHIMU 12:33 → ANH3MEDSUR 08-08 08:51 → ANHIMU 08-12 17:05
PROVIDERS: Emergency Medicine; Nurse Practitioner Adult Health; Physician Assistant; Admitting Provider Internal Medicine; Emergency Provider Family Medicine; PCP Internal Medicine; Visit Provider Family Medicine
DX: R40.4 Transient alteration of awareness (principal); G40.909 Epilepsy, unspecified, not intractable, without status epilepticus; E78.5 Hyperlipidemia, unspecified; I48.91 Unspecified atrial fibrillation; Z79.01 Long term (current) use of anticoagulants; N18.30 Chronic kidney disease, stage 3 unspecified; I12.9 Hypertensive chronic kidney disease with stage 1 through stage 4 chronic kidney disease, or unspecified chronic kidney disease; Z85.46 Personal history of malignant neoplasm of prostate; Z95.0 Presence of cardiac pacemaker; Z90.79 Acquired absence of other genital organ(s); R77.8 Other specified abnormalities of plasma proteins; D64.9 Anemia, unspecified
CPT/HCPCS: 36415; 70450; 71046; 73502; 80048; 80053; 80177; 83690; 84484; 85025; 85027; 85610; 85730; 93005; 96365; 97161; 97165; 97530; 97535; 99285; A9270; G0378; J1953

== ENCOUNTER 2021-09-10 08:53 | Emergency (ER) | payer MEDICARE, OTHER, SELFPAY ==
[2021-09-10] VITALS (7 sets, daily range): BP systolic 100–147; BP diastolic 70–82; PULSE 70; RESP 16–26; TEMP 36.6; O2SAT 96–99
--- NOTE | ~2021-09-10 | XR_ITS ---
EXAMINATION: XR chest 2V DATE: 09/10/2021 09:41 INDICATION: Shortness of breath and cough TECHNIQUE: AP and lateral views of the chest are obtained. COMPARISON: 08/06/2021 FINDINGS: The lungs are free of acute opacities. No pleural effusion or pneumothorax. Cardiomegaly is noted. There is moderate thoracic spondylosis. A dual-lead cardiac pacemaker of the left chest wall ends with leads in expected locations. IMPRESSION: 1. Cardiomegaly Reviewed, dictated and finalized at location B. IMPRESSION: 1. Cardiomegaly
--- NOTE | 2021-09-10 09:03 | ECG_ITS ---
Measurements Intervals [place] Rate: 70 P: 183 MI: 218 QRS: 1 QRSD: 91 T: 51 QT: 423 QTc: 457 Interpretive Statements ELECTRONIC ATRIAL PACEMAKER LOW QRS VOLTAGE IN PRECORDIAL LEADS BASELINE ARTIFACT- I, II, III, AVR, AVL, AVF, V1-V6 BORDERLINE ECG Electronically Signed On 09-10-2021 9:20:39 CDT by Alok Mackey D.O.
--- NOTE | 2021-09-10 09:12 | ED.GENADULT ---
HPI - General Adult General Chief complaint: Unspecified Stated complaint: left armpit pain Time Seen by Provider: 09/10/21 08:58 History of Present Illness HPI narrative: Patient is an 81-year-old male with a history of atrial fibrillation on Eliquis, seizures on Keppra, CKD, CVA with residual left-sided weakness, DVT with IVC filter, here for evaluation from his nursing facility for possible difficulty breathing this morning. Patient states that he was having difficulty clearing his mucus this morning that made him feel short of breath. His nursing facility called the ambulance, but patient states by the time the ambulance arrived to the nursing facility, patient was feeling better. Nursing facility told EMS that patient was having chest pain, although patient denies this and states he was just having arm pain where the blood pressure cuff was. Currently, patient is asymptomatic, denies any pain, difficulty breathing, headaches, leg swelling. Nursing facility did not comment on any noted altered mental status. Related Data Home Medications Medication Instructions Recorded Confirmed atorvastatin 40 mg tablet (Lipitor) 40 mg PO DAILY 07/30/20 08/16/21 carvedilol 3.125 mg tablet (Coreg) 3.125 mg PO BID 07/30/20 08/16/21 cyanocobalamin (vitamin B-12) 1,000 mcg PO DAILY 07/30/20 08/16/21 1,000 mcg tablet docusate sodium 100 mg capsule 100 mg PO HS 07/30/20 08/16/21 (Colace) sertraline 100 mg tablet (Zoloft) 200 mg PO DAILY 07/30/20 08/16/21 sotalol 80 mg tablet 80 mg PO HS 07/30/20 08/16/21 furosemide 40 mg tablet 40 mg PO DAILY 04/02/21 08/16/21 apixaban 5 mg tablet (Eliquis) 5 mg PO BID 08/06/21 08/16/21 buspirone 5 mg tablet 5 mg PO BID 08/06/21 08/16/21 cholecalciferol (vitamin D3) 50 50 mcg PO DAILY 08/06/21 08/16/21 mcg (2,000 unit) capsule (Vitamin D3) donepezil 10 mg tablet (Aricept) 10 mg PO DAILY 08/06/21 08/16/21 finasteride 5 mg tablet 5 mg PO DAILY 08/06/21 08/16/21 pantoprazole 40 mg tablet,delayed 40 mg PO QAM 08/06/21 08/16/21 release tamsulosin 0.4 mg capsule 0.4 mg PO HS 08/06/21 08/16/21 Allergies Allergy/AdvReac Type Severity Reaction Status Date / Time nitrofurantoin Allergy Severe significant Verified 09/10/21 09:04 [From Macrobid] rash causing hospitalization Review of Systems Review of Systems: Gen: Denies fevers or chills Eyes: Denies eye pain or visual change ENT: Denies congestion Respiratory: Reports difficulty breathing, resolved. 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 Chronic kidney disease, stage 3 Colon polyps Deep venous thrombosis Dementia Gastrointestinal ulcer Pacemaker Presence of IVC filter Prostate cancer S/p radiation Seizures Surgical History Surgical History History of cardiac pacemaker History of colonoscopy with polypectomy Status post ablation of atrial fibrillation Family History Family History Father Mother Other No significant family history Social History Social History (Updated 08/06/21 @ 16:00 by Kira Helm PA-C) Social History: Healthcare power of disability attorney: Alicia Damon, daughter. Code status: Full code. Smoking status: Unknown if ever smoked Alcohol intake: never Substance use: never Additional living arrangeme
[2021-09-10 09:31] LABS: Basophils Percent Auto 0.4 % (0.2-1.2); Eosinophils Absolute Auto 0.1 K/mm3 (0-0.3); Eosinophils Percent Auto 2.4 % (0-4.4); Hematocrit 35.7 % (42.0-52.0); Hemoglobin 11.6 g/dL (14.0-18.0); Immature Granulocyte Absolute 0.01 K/mm3 (0.00-0.031); Immature Granulocyte Percent A 0.2 % (0-0.5); Lymphocytes Percent Auto 32.8 % (18.3-44.2); Mean Corpuscular HGB Conc 32.5 g/dl (32-36); Mean Corpuscular Hemoglobin 31.1 pg (26-34); Mean Corpuscular Volume 95.7 fl (80-100); Mean Platelet Volume 10.5 fl (7.4-10.4); Monocytes Absolute Auto 0.3 K/mm3 (0.1-0.6); Neutrophils Absolute Auto 2.6 K/mm3 (1.3-6.7); Neutrophils Percent Auto 57.2 % (45.5-73.1); Platelet Count Result 141 k/mm3 (150-375); Red Blood Count 3.73 M/mm3 (4.6-6.20); Red Cell Distribution Width 13.7 % (11.5-14.5); White Blood Count 4.6 K/mm3 (4.5-10.0)
[2021-09-10 10:07] LABS: SARS-CoV-2 RNA PCR Negative
[2021-09-10 10:09] LABS: INR 1.3; Prothrombin Time 15.2 Seconds (11.1-14.7)
[2021-09-10 10:10] LABS: Alanine Aminotransferase 18 U/L (6-50); Albumin Level 4.6 g/dL (3.5-5.1); Alkaline Phosphatase 79 U/L (38-126); Anion Gap 7 mmol/L (8-16); Aspartate Amino Transferase 27 U/L (17-59); Bilirubin,Total 0.5 mg/dL (0.2-1.3); Blood Urea Nitrogen 27 mg/dL (9-20); Calcium 9.2 mg/dL (8.4-10.2); Carbon Dioxide 32 mmol/L (22-30); Chloride 104 mmol/L (98-107); Estimated CRCL calculation 54 ml/min; Estimated Glomerular Filt Rate 58; Glucose 94 mg/dL (65-110); Potassium 4.4 mmol/L (3.4-5.0); Sodium 143 mmol/L (137-145)
[2021-09-10 10:10] LABS: Partial Thromboplastin Time 24.1 SECONDS (22.3-36.8)
[2021-09-10 10:22] LABS: Troponin I < 0.012 ng/mL (0.000-0.034)
--- NOTE | 2021-09-10 11:34 | PCCCNOTE ---
Called by ED provider Sharri to meet with patient and daughter about current group home facility. Per Provider Sharri, patient will be discharged. Met with patient in ER Room 4 and dtr Alicia, Patient states that there are a lot of residents at [facility] and there are ants in his room and flies that land on his food. Alicia states that he is on the waitlist at [facility] but there are two other people in front on him. Asked Alicia if she has spoken with the facility and she has not. Encouraged to talk with facilities and they can also send referrals to other facilities and work with them about improvements. Also advised can reach out to other SNF facilities and have them contact [facility]. Provided Alicia with a list of SNF facilities along with the phone number for [facility] and [facility] phone number.
== END 2021-09-10 12:20 ==
PROVIDERS: Physician Assistant; Emergency Provider Emergency Medicine; PCP Internal Medicine
DX: R09.81 Nasal congestion (principal); Z20.822 Contact with and (suspected) exposure to COVID-19; F03.90 Unspecified dementia, unspecified severity, without behavioral disturbance, psychotic disturbance, mood disturbance, and anxiety; I48.91 Unspecified atrial fibrillation; N18.30 Chronic kidney disease, stage 3 unspecified; N40.0 Benign prostatic hyperplasia without lower urinary tract symptoms; D64.9 Anemia, unspecified; I69.354 Hemiplegia and hemiparesis following cerebral infarction affecting left non-dominant side; Z86.718 Personal history of other venous thrombosis and embolism; Z86.010 Personal history of colon polyps; Z95.0 Presence of cardiac pacemaker; Z85.46 Personal history of malignant neoplasm of prostate; Z92.3 Personal history of irradiation; Z79.01 Long term (current) use of anticoagulants
CPT/HCPCS: 36415; 71046; 80053; 84484; 85025; 85610; 85730; 93005; 99284; C9803; U0003; U0005

== ENCOUNTER 2021-09-30 01:35 | Emergency (ER) | payer MEDICARE, OTHER, SELFPAY ==
[2021-09-30] VITALS (35 sets, daily range): BP systolic 92–120; BP diastolic 59–74; PULSE 68–80; RESP 13–25; TEMP 36.3–36.6; O2SAT 92–100
--- NOTE | ~2021-09-30 | XR_ITS ---
EXAMINATION: XR chest 1V portable DATE: 09/30/2021 02:03 INDICATION: Shortness of breath TECHNIQUE: frontal view of the chest was obtained. COMPARISON: Chest radiograph dated 09/10/2021 FINDINGS: Unchanged opacity with sharply defined margins at the left costophrenic angle corresponding to a smal l paracardial fat pad. No new airspace opacities, pulmonary edema, pleural effusion or pneumothorax. Mild cardiomegaly. Dual lead pacemaker seen with leads projecting over the expected locations of the right atrium and right ventricle. IMPRESSION: 1. Cardiomegaly. No acute cardiopulmonary disease. Reviewed, dictated and finalized at location A.
--- NOTE | 2021-09-30 01:38 | ECG_ITS ---
Measurements Intervals [place] Rate: 70 P: -82 MO: 198 QRS: -12 QRSD: 96 T: 1 QT: 410 QTc: 444 Interpretive Statements ELECTRONIC ATRIAL PACEMAKER/OCCASIONAL PVC WHICH WAS APPROPRIATELY SENSED LOW-VOLTAGE QRS ABNORMAL RHYTHM ECG COMPARED TO ECG 09/10/2021 08:58:49 NO SIGNIFICANT CHANGES Electronically Signed On 09-30-2021 13:58:11 CDT by Grupo Chiu M.D.
--- NOTE | 2021-09-30 01:40 | ED.SOB ---
HPI - SOB/Dyspnea General Chief Complaint: Shortness of Breath/Dyspnea Stated Complaint: sob Time Seen by Provider: 09/30/21 01:38 History of Present Illness HPI Narrative: 81-year-old male brought in by EMS from a rehab facility. Brought in secondary to complaint of some shortness of breath. Patient states he has had a cough congestion for about a week which is getting progressively worse. Apparently has some nonspecific chest discomfort associated with this. He is vaccinated for COVID. But no documentation of any fevers. When EMS arrived he was not hypoxic. Has some mild swelling to his legs. Patient is a very poor historian. Related Data Home Medications Medication Instructions Recorded Confirmed atorvastatin 40 mg tablet (Lipitor) 40 mg PO DAILY 07/30/20 08/16/21 carvedilol 3.125 mg tablet (Coreg) 3.125 mg PO BID 07/30/20 08/16/21 cyanocobalamin (vitamin B-12) 1,000 mcg PO DAILY 07/30/20 08/16/21 1,000 mcg tablet docusate sodium 100 mg capsule 100 mg PO HS 07/30/20 08/16/21 (Colace) sertraline 100 mg tablet (Zoloft) 200 mg PO DAILY 07/30/20 08/16/21 sotalol 80 mg tablet 80 mg PO HS 07/30/20 08/16/21 furosemide 40 mg tablet 40 mg PO DAILY 04/02/21 08/16/21 apixaban 5 mg tablet (Eliquis) 5 mg PO BID 08/06/21 08/16/21 buspirone 5 mg tablet 5 mg PO BID 08/06/21 08/16/21 cholecalciferol (vitamin D3) 50 50 mcg PO DAILY 08/06/21 08/16/21 mcg (2,000 unit) capsule (Vitamin D3) donepezil 10 mg tablet (Aricept) 10 mg PO DAILY 08/06/21 08/16/21 finasteride 5 mg tablet 5 mg PO DAILY 08/06/21 08/16/21 pantoprazole 40 mg tablet,delayed 40 mg PO QAM 08/06/21 08/16/21 release tamsulosin 0.4 mg capsule 0.4 mg PO HS 08/06/21 08/16/21 Allergies Allergy/AdvReac Type Severity Reaction Status Date / Time nitrofurantoin Allergy Severe significant Verified 09/30/21 01:41 [From Macrobid] rash causing hospitalization Review of Systems Review of Systems: CONSTITUTIONAL: Denies fever, chills, or sweats. EYES: Denies visual changes, redness, or discharge. ENT: Denies rhinorrhea, congestion, sore throat, or otalgia. CARDIOVASCULAR: Denies palpitations, or edema. Nonspecific chest discomfort RESPIRATORY: Cough and congestion with some shortness of breath GASTROINTESTINAL: Denies abdominal pain, nausea, vomiting, or diarrhea. GENITOURINARY: Denies dysuria or hematuria. SKIN: Denies rash or itching. MUSCULOSKELETAL: Denies back pain, joint pain, or myalgia. NEUROLOGIC: Denies headache, numbness, or weakness. PSYCHIATRIC: Denies anxiety or depression. 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 Chronic kidney disease, stage 3 Colon polyps Deep venous thrombosis Dementia Gastrointestinal ulcer Pacemaker Presence of IVC filter Prostate cancer S/p radiation Seizures Surgical History Surgical History History of cardiac pacemaker History of colonoscopy with polypectomy Status post ablation of atrial fibrillation Family History Family History Father Mother Other No significant family history Social History Social History Social History: Healthcare power of sports attorney: Alicia Damon, daughter. Code status: Full code. Smoking status: Unknown if ever smoked Alcohol intake: never Substance use: never Additional living arrangements comments: Recently moved to assisted living July 2021 Additional occupation/education comments: Retired. Spiritual care concerns: No Exam Narrative: APPEARANCE: Well appearing, no pain or distress, well-nourished. Head Normocephalic and atraumatic. EYES: PERRLA/EOMI, conjunct
[2021-09-30 02:00] LABS: Basophils Percent Auto 0.5 % (0.2-1.2); Eosinophils Absolute Auto 0.2 K/mm3 (0-0.3); Eosinophils Percent Auto 3.3 % (0-4.4); Hemoglobin 11.4 g/dL (14.0-18.0); Immature Granulocyte Absolute 0.01 K/mm3 (0.00-0.031); Immature Granulocyte Percent A 0.2 % (0-0.5); Immature Platelet Fraction Pct 3.6 % (0.9-11.2); Lymphocytes Percent Auto 28.1 % (18.3-44.2); Mean Corpuscular HGB Conc 32.6 g/dl (32-36); Mean Corpuscular Hemoglobin 31.1 pg (26-34); Mean Corpuscular Volume 95.4 fl (80-100); Mean Platelet Volume 10.7 fl (7.4-10.4); Monocytes Absolute Auto 0.8 K/mm3 (0.1-0.6); Monocytes Percent Auto 12.4 % (2.6-8.5); Neutrophils Absolute Auto 3.4 K/mm3 (1.3-6.7); Neutrophils Percent Auto 55.5 % (45.5-73.1); Platelet Count Result 104 k/mm3 (150-375); Red Blood Count 3.67 M/mm3 (4.6-6.20); Red Cell Distribution Width 13.6 % (11.5-14.5); White Blood Count 6.1 K/mm3 (4.5-10.0)
[2021-09-30 02:07] LABS: Lactic Acid Reflex 0.7 mmol/L (0.7-2.0)
[2021-09-30 02:16] LABS: Alanine Aminotransferase 19 U/L (6-50); Alkaline Phosphatase 58 U/L (38-126); Anion Gap 6 mmol/L (8-16); Aspartate Amino Transferase 31 U/L (17-59); Bilirubin,Total 0.7 mg/dL (0.2-1.3); Blood Urea Nitrogen 28 mg/dL (9-20); Carbon Dioxide 29 mmol/L (22-30); Chloride 100 mmol/L (98-107); Estimated CRCL calculation 54 ml/min; Estimated Glomerular Filt Rate 58; Glucose 108 mg/dL (65-110); Potassium 4.3 mmol/L (3.4-5.0); Sodium 135 mmol/L (137-145)
[2021-09-30 02:17] LABS: NT Pro B Type Natriuretic Pept 378 pg/mL (5-100)
[2021-09-30 02:35] LABS: SARS-CoV-2 RNA PCR Positive
--- NOTE | 2021-09-30 02:59 | PC.NURSE ---
This RN spoke with Catina at [facility] and notified them that pt is returning.
[2021-09-30 03:04] LABS: Troponin I < 0.012 ng/mL (0.000-0.034)
--- NOTE | 2021-09-30 05:49 | PC.NURSE ---
OLE Moser, [facility] unavailable tonight. Updated ETA for [facility] is now [phone]
--- NOTE | 2021-09-30 06:49 | PC.NURSE ---
[facility] here
== END 2021-09-30 06:57 ==
PROVIDERS: Emergency Provider Emergency Medicine; PCP Internal Medicine
DX: U07.1 COVID-19 (principal); I48.91 Unspecified atrial fibrillation; Z95.0 Presence of cardiac pacemaker; N40.0 Benign prostatic hyperplasia without lower urinary tract symptoms; D64.9 Anemia, unspecified; N28.9 Disorder of kidney and ureter, unspecified; F03.90 Unspecified dementia, unspecified severity, without behavioral disturbance, psychotic disturbance, mood disturbance, and anxiety; G40.909 Epilepsy, unspecified, not intractable, without status epilepticus
CPT/HCPCS: 36415; 71045; 80053; 83605; 83880; 84484; 85025; 85055; 87040; 93005; 99284; C9803; U0003; U0005

== ENCOUNTER 2023-05-20 23:19 | Emergency (ER) | payer OTHER, SELFPAY ==
--- NOTE | ~2023-05-20 | CT_ITS ---
Non-contrast Head CT History: Altered mental status Technique: Axial non-contrast imaging of the brain was performed. Dose reduction technique was used on this scan by utilizing automated exposure control and iterative reconstruction technique. The dose -length product (DLP) was 605.33 mGy-cm. Findings: There is no evidence of intracranial hemorrhage, mass lesion, or acute infarct. There is e xtensive chronic encephalomalacia in the right MCA distribution infarct. The ventricles and subarachn oid spaces are mildly dilated. The calvarium appears normal. The visualized paranasal sinuses and m astoid air cells are clear. Impression: No acute abnormality seen. Extensive chronic right MCA distribution infarct. Reviewed, dictated and finalized at location M. Impression: No acute abnormality seen. Extensive chronic right MCA distribution infarct.
--- NOTE | ~2023-05-20 | XR_ITS ---
Portable chest x-ray Comparison: None Clinical History: Altered mental status Findings: Questionable retrocardiac airspace disease. Right lung clear. Cardiomediastinal silhouett e is unremarkable, with pacemaker device. Bones and soft tissues are unremarkable. Impression: Questionable left lower lobe pneumonia or atelectasis. Pacemaker device. Reviewed, dictated and finalized at [facility]. Impression: Questionable left lower lobe pneumonia or atelectasis. Pacemaker device.
[2023-05-20 23:20] VITALS: BP 115/67; PULSE 70; RESP 16; TEMP 37.1; O2SAT 97
--- NOTE | 2023-05-20 23:25 | ECG_ITS ---
Measurements Intervals [place] Rate: 70 P: 89 WV: 148 QRS: -4 QRSD: 100 T: 44 QT: 333 QTc: 360 Interpretive Statements ELECTRONIC ATRIAL PACEMAKER NONSPECIFIC T-WAVE ABNORMALITY BASELINE ARTIFACT WHICH LIMITS INTERPRETATION COMPARED TO ECG 09/30/2021 01:32:19 NO SIGNIFICANT CHANGES Electronically Signed On 05-21-2023 11:02:55 CDT by Kaveh Fuentes M.D.
[2023-05-20 23:41] LABS: Basophils Percent Auto 0.6 % (0.2-1.2); Eosinophils Absolute Auto 0.1 K/mm3 (0-0.3); Hemoglobin 13.1 g/dL (14.0-18.0); Immature Granulocyte Absolute 0.01 K/mm3 (0.00-0.031); Immature Granulocyte Percent A 0.2 % (0-0.5); Immature Platelet Fraction Pct 2.7 % (0.9-11.2); Lymphocytes Absolute Auto 0.84 K/mm3 (0.9-3.2); Lymphocytes Percent Auto 16.9 % (18.3-44.2); Mean Corpuscular HGB Conc 32.8 g/dl (32-36); Mean Corpuscular Volume 97.8 fl (80-100); Monocytes Absolute Auto 0.5 K/mm3 (0.1-0.6); Monocytes Percent Auto 10.3 % (2.6-8.5); Neutrophils Absolute Auto 3.5 K/mm3 (1.3-6.7); Platelet Count Result 135 k/mm3 (150-375); Red Blood Count 4.09 M/mm3 (4.6-6.20); Red Cell Distribution Width 13.1 % (11.5-14.5)
[2023-05-20 23:50] LABS: Alanine Aminotransferase 19 U/L (6-50); Alkaline Phosphatase 67 U/L (38-126); Anion Gap 3 mmol/L (4-12); Aspartate Amino Transferase 26 U/L (17-59); Bilirubin,Total 0.5 mg/dL (0.2-1.3); Blood Urea Nitrogen 28 mg/dL (9-20); Calcium 9.6 mg/dL (8.4-10.2); Carbon Dioxide 33 mmol/L (22-30); Chloride 106 mmol/L (98-107); Estimated CRCL calculation 44 ml/min; Estimated Glomerular Filt Rate > 60; Glucose 103 mg/dL (65-110); Potassium 4.5 mmol/L (3.4-5.0); Sodium 142 mmol/L (137-145)
[2023-05-21 00:53] LABS: Appearance Urine Clear (Clear); Bacteria Urine None Seen /hpf; Bilirubin Urine Negative (Negative); Blood Urine 1+ (Negative); Calcium Oxalate Crystals Urine Present /hpf; Color Urine Yellow (Yellow); Glucose Urine UA Negative (Negative); Hyaline Casts Urine Present /lpf; Ketones Urine Trace mg/dL (Negative); Leukocyte Esterase Ur Negative LEU/UL (Negative); Mucus Urine Present /lpf; Need Manual Microscopic Reviewed; Nitrate Urine Negative (Negative); Protein Urine 1+ mg/dL (Negative); RBC Urine 21-50 /hpf (0-2); Squamous Epithelial Cell Urine None Seen /hpf (Few); WBC Urine 0-5 /hpf (0-3)
[2023-05-21 00:54] LABS: Add Urine Microscopic? YES
[2023-05-21 01:15] LABS: Influenza A QL RT-PCR Negative (Negative); Influenza B QL RT-PCR Negative (Negative); RSV RNA, RT-PCR Negative (Negative); SARS-CoV-2 RNA PCR Negative (Negative)
--- NOTE | 2023-05-21 01:21 | ED.GENADULT ---
HPI - General Adult General Chief complaint: Weakness Stated complaint: confusion Time Seen by Provider: 05/21/23 00:22 History of Present Illness HPI narrative: Patient is an 83-year-old male who presents to the emergency department this evening from his extended care facility due to concern for increased lethargy for the past 3 days. Patient is normally alert and oriented x1 which is his baseline and he is currently alert oriented to person and place for me. Patient is complaining of a rash to his left chest/ abdomen area which is the extended care facility reported that they noticed for the 1st time today. Patient denies any additional symptoms including any chest pain or shortness of breath, denies any abdominal, and urinary symptoms including dysuria or hematuria and is denying any headaches at this time. Patient's daughter is present at bedside and states that she last saw him on Thursday for and can not tell if she notices any increased lethargy stating that her father can always tell that it is her visiting and he immediately recognized her when she came to visit. There are no other modifying, alleviating, or precipitating factors at this time. Related Data Home Medications Medication Instructions Recorded Confirmed atorvastatin 40 mg tablet (Lipitor) 40 mg PO DAILY 07/30/20 08/16/21 carvedilol 3.125 mg tablet (Coreg) 3.125 mg PO BID 07/30/20 08/16/21 cyanocobalamin (vitamin B-12) 1,000 mcg PO DAILY 07/30/20 08/16/21 1,000 mcg tablet docusate sodium 100 mg capsule 100 mg PO HS 07/30/20 08/16/21 (Colace) sertraline 100 mg tablet (Zoloft) 200 mg PO DAILY 07/30/20 08/16/21 sotalol 80 mg tablet 80 mg PO HS 07/30/20 08/16/21 furosemide 40 mg tablet 40 mg PO DAILY 04/02/21 08/16/21 apixaban 5 mg tablet (Eliquis) 5 mg PO BID 08/06/21 08/16/21 buspirone 5 mg tablet 5 mg PO BID 08/06/21 08/16/21 cholecalciferol (vitamin D3) 50 50 mcg PO DAILY 08/06/21 08/16/21 mcg (2,000 unit) capsule (Vitamin D3) donepezil 10 mg tablet (Aricept) 10 mg PO DAILY 08/06/21 08/16/21 finasteride 5 mg tablet 5 mg PO DAILY 08/06/21 08/16/21 pantoprazole 40 mg tablet,delayed 40 mg PO QAM 08/06/21 08/16/21 release tamsulosin 0.4 mg capsule 0.4 mg PO HS 08/06/21 08/16/21 Allergies Allergy/AdvReac Type Severity Reaction Status Date / Time nitrofurantoin Allergy Severe significant Verified 09/30/21 01:41 [From Macrobid] rash causing hospitalization Review of Systems Review of Systems: All systems are reviewed and are negative unless stated otherwise in the HPI. 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 Chronic kidney disease, stage 3 Colon polyps Deep venous thrombosis Dementia Gastrointestinal ulcer Pacemaker Presence of IVC filter Prostate cancer S/p radiation Seizures Surgical History Surgical History History of cardiac pacemaker History of colonoscopy with polypectomy Status post ablation of atrial fibrillation Family History Family History Father Mother Other No significant family history Social History Social History Social History: Healthcare power of attorney lawyer: Alicia Damon, daughter. Code status: Full code. Smoking status: Unknown if ever smoked Alcohol intake: never Substance use: never Living arrangements: assisted living Additional living arrangements comments: Recently moved to assisted living July 2021 Additional occupation/education comments: Retired. Spiritual care concerns: No Exam Narrative: General: Awake, afebrile, in no acute distress. HEENT: PERRL, no rhi
[2023-05-21 01:24] VITALS: BP 116/70; PULSE 70; RESP 17; O2SAT 99
[2023-05-21] MEDS: MORPHINE SULFATE (*CRX) 2 MG/ML INJ IV PUSH (01:51)
[2023-05-21 01:52] VITALS: BP 113/67; PULSE 75; RESP 23; O2SAT 97
[2023-05-21 02:31] VITALS: BP 95/63; PULSE 70; RESP 20; O2SAT 98
[2023-05-21 03:27] VITALS: BP 106/78; PULSE 81; RESP 19; O2SAT 97
--- NOTE | 2023-05-21 03:27 | PC.NURSE ---
REPORT CALLED TO SAÚL AT [facility]. AWAITING TRANSPORT.
[2023-05-21 03:31] VITALS: BP 107/65; PULSE 70; RESP 19; O2SAT 96
== END 2023-05-21 04:18 ==
LOC: ANHED 05-21 01:35
PROVIDERS: Emergency Provider Emergency Medicine; PCP Internal Medicine
DX: B02.9 Zoster without complications (principal); I48.91 Unspecified atrial fibrillation; Z79.01 Long term (current) use of anticoagulants; N18.30 Chronic kidney disease, stage 3 unspecified; Z95.0 Presence of cardiac pacemaker; Z85.46 Personal history of malignant neoplasm of prostate; I69.954 Hemiplegia and hemiparesis following unspecified cerebrovascular disease affecting left non-dominant side; Z20.822 Contact with and (suspected) exposure to COVID-19
CPT/HCPCS: 36415; 70450; 71045; 80053; 81001; 85025; 85055; 87637; 93005; 96374; 99284; J2270

== ENCOUNTER 2023-06-23 01:15 | Emergency (ER) | payer OTHER, SELFPAY ==
[2023-06-23] VITALS (10 sets, daily range): BP systolic 108–133; BP diastolic 61–86; PULSE 70–75; RESP 13–20; TEMP 36.4–36.7; O2SAT 95–100
--- NOTE | ~2023-06-23 | CT_ITS ---
CT head without contrast Indication: Altered mental status COMPARISON: 05/21/2023 Technique: Serial scans were obtained through the brain without the administration of contrast. Dose reduction technique was used on this scan by utilizing automated exposure control and iterative recon struction technique. The dose-length product (DLP) was 605.33 mGy-cm. Findings: There is no evidence of intracranial hemorrhage, mass lesion, or acute infarct. Stable larg e, chronic right MCA distribution infarct. The ventricles and subarachnoid spaces are dilated, consis tent with moderate atrophy. Low attenuation regions are seen within the periventricular white matter bilaterally, likely representing changes from chronic microvascular ischemic disease. There is no ev idence of edema, mass effect or midline shift. The visualized paranasal sinuses and mastoid air roman ls are clear. Impression: No intracranial hemorrhage, mass, or acute infarct. Stable extensive chronic right MCA distribution infarct. Atrophy and chronic white matter changes, as above. Reviewed, dictated and finalized at location . Impression: No intracranial hemorrhage, mass, or acute infarct. Stable extensive chronic right MCA distribution infarct. Atrophy and chronic white matter changes, as above.
--- NOTE | 2023-06-23 04:24 | ECG_ITS ---
SEE SCANNED COPY FOR CONFIRMED REPORT MTDD
[2023-06-23 04:45] LABS: Basophils Percent Auto 0.4 % (0.2-1.2); Eosinophils Absolute Auto 0.2 K/mm3 (0-0.3); Eosinophils Percent Auto 2.2 % (0-4.4); Hematocrit 37.7 % (42.0-52.0); Hemoglobin 12.5 g/dL (14.0-18.0); Immature Granulocyte Absolute 0.01 K/mm3 (0.00-0.031); Immature Granulocyte Percent A 0.1 % (0-0.5); Lymphocytes Absolute Auto 2.01 K/mm3 (0.9-3.2); Lymphocytes Percent Auto 26.4 % (18.3-44.2); Mean Corpuscular HGB Conc 33.2 g/dl (32-36); Mean Corpuscular Hemoglobin 32.6 pg (26-34); Mean Corpuscular Volume 98.4 fl (80-100); Mean Platelet Volume 10.4 fl (7.4-10.4); Monocytes Absolute Auto 0.5 K/mm3 (0.1-0.6); Monocytes Percent Auto 6.2 % (2.6-8.5); Neutrophils Absolute Auto 4.9 K/mm3 (1.3-6.7); Neutrophils Percent Auto 64.7 % (45.5-73.1); Platelet Count Result 142 k/mm3 (150-375); Red Blood Count 3.83 M/mm3 (4.6-6.20); Red Cell Distribution Width 13.8 % (11.5-14.5); White Blood Count 7.6 K/mm3 (4.5-10.0)
[2023-06-23 04:54] LABS: INR 1.4
[2023-06-23 04:55] LABS: Partial Thromboplastin Time 35.5 Seconds (22.3-36.8)
[2023-06-23 04:56] LABS: Alanine Aminotransferase 16 U/L (6-50); Albumin Level 3.7 g/dL (3.5-5.1); Alkaline Phosphatase 68 U/L (38-126); Anion Gap 4 mmol/L (4-12); Aspartate Amino Transferase 26 U/L (17-59); Bilirubin,Total 0.6 mg/dL (0.2-1.3); Blood Urea Nitrogen 20 mg/dL (9-20); Calcium 8.9 mg/dL (8.4-10.2); Carbon Dioxide 30 mmol/L (22-30); Chloride 107 mmol/L (98-107); Estimated CRCL calculation 52 ml/min; Estimated Glomerular Filt Rate > 60; Glucose 91 mg/dL (65-110); Potassium 2.8 mmol/L (3.4-5.0); Sodium 141 mmol/L (137-145)
[2023-06-23 07:40] LABS: Appearance Urine Cloudy (Clear); Bacteria Urine Rare /hpf; Bilirubin Urine Negative (Negative); Blood Urine Negative (Negative); Color Urine Dark Yellow (Yellow); Glucose Urine UA Negative (Negative); Ketones Urine Trace mg/dL (Negative); Leukocyte Esterase Ur Negative LEU/UL (Negative); Need Manual Microscopic Reviewed; Nitrate Urine Negative (Negative); Non Pathogenic Casts 0-2; Protein Urine 1+ mg/dL (Negative); RBC Urine 0-2 /hpf (0-2); Squamous Epithelial Cell Urine Moderate /hpf (Few); pH Urine 5.5 (5.0-9.0)
[2023-06-23 07:41] LABS: Specific Grav Ur 1.035 (1.001-1.035)
[2023-06-23 08:06] LABS: Add Urine Microscopic? YES
--- NOTE | 2023-06-23 08:16 | ED.GENADULT ---
HPI - General Adult General Chief complaint: Seizure Stated complaint: seizure, decreased loc Time Seen by Provider: 06/23/23 06:54 History of Present Illness HPI narrative: 83-year-old male presents emergency department for evaluation for increased lethargy. alf was initially concerned that the patient was less responsive today and they suspected that he may have had a seizure. Patient's daughter states that this is his recent baseline since being discharged from the hospital. She suspects this may be due to the gabapentin that he is taking that is making him more sedate. She states that there is no acute change in his mental status today as compared to the last few weeks. Patient also is able to tell when he has had a seizure and patient states he does not suspect he has had a seizure today. Patient did have recent admission for shingles and is currently on gabapentin Related Data Home Medications Medication Instructions Recorded Confirmed atorvastatin 40 mg tablet (Lipitor) 40 mg PO DAILY 07/30/20 08/16/21 carvedilol 3.125 mg tablet (Coreg) 3.125 mg PO BID 07/30/20 08/16/21 cyanocobalamin (vitamin B-12) 1,000 mcg PO DAILY 07/30/20 08/16/21 1,000 mcg tablet docusate sodium 100 mg capsule 100 mg PO HS 07/30/20 08/16/21 (Colace) sertraline 100 mg tablet (Zoloft) 200 mg PO DAILY 07/30/20 08/16/21 sotalol 80 mg tablet 80 mg PO HS 07/30/20 08/16/21 furosemide 40 mg tablet 40 mg PO DAILY 04/02/21 08/16/21 apixaban 5 mg tablet (Eliquis) 5 mg PO BID 08/06/21 08/16/21 buspirone 5 mg tablet 5 mg PO BID 08/06/21 08/16/21 cholecalciferol (vitamin D3) 50 50 mcg PO DAILY 08/06/21 08/16/21 mcg (2,000 unit) capsule (Vitamin D3) donepezil 10 mg tablet (Aricept) 10 mg PO DAILY 08/06/21 08/16/21 finasteride 5 mg tablet 5 mg PO DAILY 08/06/21 08/16/21 pantoprazole 40 mg tablet,delayed 40 mg PO [facility] 08/06/21 08/16/21 release tamsulosin 0.4 mg capsule 0.4 mg PO HS 08/06/21 08/16/21 Allergies Allergy/AdvReac Type Severity Reaction Status Date / Time nitrofurantoin Allergy Severe significant Verified 05/21/23 14:54 [From Macrobid] rash causing hospitalization Review of Systems Review of Systems: All systems reviewed & are unremarkable except as noted in HPI and below PMFSH Past Medical History Medical History Atrial fibrillation Benign prostatic hyperplasia Chronic anemia Chronic anticoagulation 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 Chronic kidney disease, stage 3 Colon polyps Deep venous thrombosis Dementia Gastrointestinal ulcer Pacemaker Presence of IVC filter Prostate cancer S/p radiation Seizures Surgical History Surgical History History of cardiac pacemaker History of colonoscopy with polypectomy Status post ablation of atrial fibrillation Family History Family History Father Mother Other No significant family history Social History Social History (System 05/21/23 @ 14:54 by Keshawn Tavarez) Social History: Healthcare power of application project leader: Alicia Damon, daughter. Code status: Full code. Smoking status: Unknown if ever smoked Alcohol intake: never Substance use: never Living arrangements: assisted living Additional living arrangements comments: Recently moved to assisted living July 2021 Additional occupation/education comments: Retired. Spiritual care concerns: No Exam Narrative: APPEARANCE: Somnolent appearing HEAD: normocephalic, atraumatic. EYES: PERRLA/EOMI, conjunctivae clear. NOSE: Normal no drainage EARS:TMS clear with good light reflex. THROAT: Pharynx clear, no exudate. NECK: Supple. No adenopathy, no masses. RESPIRATORY: Airway patent, respirations nonlabored. Clear to auscultation bilaterally, no rales, rhonchi, wheezing. CARDIOVAS
[2023-06-23] MEDS: POTASSIUM CHLORIDE 20 MEQ PACKET (FOR LIQUID) 40 MEQ PO (09:20)
[2023-06-23] MEDS: KCL 20 MEQ/SW 100 ML 100 ML 50 MEQ IVPB (09:21)
[2023-06-23] MEDS: SODIUM CHLORIDE 0.9% IV 250 ML 125 ML (09:23)
--- NOTE | 2023-06-23 12:19 | PC.NURSE ---
attempted to call nurse at [facility] at [phone] and again at [phone]. discharge teaching is sent with patient as well as verbalized to family. left a voicemail with a good callback number for when nurse is ready for report.
== END 2023-06-23 12:30 ==
PROVIDERS: Emergency Medicine; Emergency Provider Emergency Medicine; PCP Internal Medicine
DX: E87.6 Hypokalemia (principal); R53.83 Other fatigue; I48.91 Unspecified atrial fibrillation; N40.0 Benign prostatic hyperplasia without lower urinary tract symptoms; Z79.01 Long term (current) use of anticoagulants; N18.30 Chronic kidney disease, stage 3 unspecified; F03.90 Unspecified dementia, unspecified severity, without behavioral disturbance, psychotic disturbance, mood disturbance, and anxiety; Z95.0 Presence of cardiac pacemaker; Z86.718 Personal history of other venous thrombosis and embolism
CPT/HCPCS: 36415; 70450; 80053; 81001; 85025; 85055; 85610; 85730; 87086; 87088; 93005; 96365; 96366; 99284; A9270; J3480; J7050